=== PATIENT | male | born 1955 | race Caucasian/White ===

== ENCOUNTER 2025-06-05 09:29 | Outpatient (AMB) | payer MEDICARE, MEDICAID, SELFPAY ==
--- NOTE | 2025-06-05 09:29 | A.OFFPC_ITS ---
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 Required: No Accompanied by: Self / Same As Patient Allergies No Known Allergies Allergy (Verified 06/05/25 09:29) Medication List - Last Reconciled 06/05/25 by Jj Burks MD acetaminophen 1,000 mg PO Q8H apixaban (Eliquis) 5 mg PO BID losartan 25 mg PO DAILY metoprolol succinate ER 75 mg PO DAILY rosuvastatin 5 mg PO DAILY spironolactone 25 mg PO DAILY Tobacco use date assessed: 06/05/25 Fall risk assessment: 1 Fall in past year Dental Screening Dental Screen Date: 06/05/25 Did you have a dental visit in the last 12 months?: No Did you have a dental problem in the last 6 months where you did not have access to dental care?: No Was dental information given to patient?: No HPI HPI Comments History of Present Illness Details History of Present Illness The patient is a 69-year-old male presenting to establish care with a primary care physician. Right femur fracture: The patient sustained a right femur fracture last month after an episode of dizziness and blacking out, which he attributes to possible dehydration after his bender machine operator discontinued Lasix. He underwent intramedullary nailing of the femur and was subsequently in a rehab facility for eight days. He now uses a walker, which he did not require prior to the injury, and performs self-directed physical therapy exercises that he was taught in the hospital. He has a follow- up appointment with his orthopedic surgeon in June. Chronic low back pain: The patient has a history of chronic low back pain originating from a work injury in 2005 where he felt a pop after lifting something and twisting incorrectly. He was diagnosed with a herniated disc in the lower lumbar spine and underwent surgery for it in 2005. He has not followed up with a surgeon for his back since 2005 or 2006 and did not receive physical therapy for it. He reports the pain does not radiate down his legs. Congestive Heart Failure: The patient was diagnosed with congestive heart failure in 2019 after presenting with shortness of breath on exertion and inability to function. He is under the care of a bender machine operator whom he saw last week. He denies a history of atrial fibrillation or blood clots. An EKG performed at his last cardiology visit was reportedly normal. His last echocardiogram and lower leg sonogram were about one to two years ago and were reportedly normal. Nicotine dependence: The patient has a 50-year history of smoking and currently smokes two packs of cigarettes per week. He had a low-dose screening chest CT about two years ago, which was reportedly normal with no nodules found. Preventive Care: The patient has not had a primary care physician since 2009. His last colonoscopy was in 2009 and was reportedly normal. He is aware that he is overdue for a repeat screening. Surgical History: - Right femur intramedullary nailing las t month. - Lumbar spine surgery for a herniated d isc in 2005. - Left inguinal hernia repair a couple o f years ago. Medications: - Acetaminophen 1000 mg for pain in his leg and back. - Apixaban (Eliquis) for his heart. - Losartan for blood pressure. - Rosuvastatin for cholesterol. - Calcium. - Potassium. - Metoprolol. - Spironolactone. Social History: - Tobacco Use: Smokes two packs of cigar ettes per week and has been smoking for 50 years. - Employment: Retired lithographic printing machinist. - Functional Status: Uses a walker for a mbulation since his recent femur fracture. - Transportation: Relies on someone else for rides to appointments. Diagnostic Results: - Low-dose screening chest CT (2 years a go): Normal, no nodules found. - Colonoscopy (2009): Reportedly normal. - EKG (last week): Reportedly great. - Echocardiogram (1-2 years ago): Report edly everything was okay. - Lower leg sonogram (1-2 years ago): Re portedly everything was okay. Past Medical History - Congestive heart failure, diagnosed in 2019. - Hypertension. - Hyperlipidemia. - Herniated lumbar disc, status post-phyllis sukhwinder in 2005. - Right femur fracture, status post-surg claudia last month. - Left inguinal hernia, status post-repa ir a couple of years ago. Health Maintenance - The patient has not had a primary care physician since 2009. - The patient is overdue for a colon can cer screening, with his last colonoscopy performed in 2009. - A low-dose screening chest CT was perf ormed about two years ago and was normal. [facility] Medical History (Updated 06/05/25 @ 10:22 by Jj Burks MD) Xerosis cutis Nicotine dependence Congestive heart failure Chronic lower back pain Femur fracture, right Family History (Updated 06/05/25 @ 09:42 by Nemesio Galvez MA) Father No problems noted. Mother No problems noted. Social History Housing: House Patient Tobacco Use Status: Current everyday Tobacco user Cigarettes Per Day: 5 service: No Current occupational status: retired Cognitive needs: No Hearing needs: No Vision needs: Yes (reading glasses) Questionnaire PHQ-9 Over the last 2 weeks, how often have you been bothered by any of the following problems? 1. Little interest or pleasure in doing things: not at all 2. Feeling down, depressed, or hopeless: not at all 3. Trouble falling or staying asleep, or sleeping too much: not at all 4. Feeling tired or having little energy: not at all 5. Poor appetite or overeating: not at all 6. Feeling bad about yourself - or that you are a failure or have let yourself or your family down: not at all 7. Trouble concentrating on things, such as reading the newspaper or watching television: not at all 8. Moving or speaking so slowly that other people could have noticed. Or the opposite - being so fidgety or restless that you have been moving around a lot more than usual: not at all 9. Thoughts that you would be better off or of hurting yourself in some way: not at all Total score: 0 Depression Screening Interpretation: Negative Depression Screening Done: Yes Source: Developed by Drs. Tonio Murphy, Liya Borges, Yazan Portillo and colleagues, with an educational esteban from [employer]. Thrive Questionnaire Date Thrive assessed: 06/05/25 I am a: Patient What is your living situation today?: I have a steady place to live Within the past 12 months, did the food you bought not last and you didn't have the money to get more?: Never true Within the past 12 months, did you worry whether your food would run out before you got money to buy more?: Never true Do you have trouble paying for medicines?: No Do you have trouble getting transportation to medical appointments?: No Do you have trouble paying your heating and electricity bill?: No Do you have trouble taking care of your child, family member or friend?: No Do you have trouble with day-to-day activities such as bathing, preparing meals, shopping, managing finances, etc.?: Yes Are you currently unemployed and looking for a job?: No Are you interested in more education?: No Please select the resources that you would like help with: None THRIVE Score: 0 AUDIT C Alcohol Use Questionnaire (AUDIT-C) 1. How often do you have a drink containing alcohol?: Monthly or less 2. How many drinks containing alcohol do you have on a typical day when you are drinking?: 1 or 2 Total Score: 1 DANIELLE-7 AMB Questionnaire DANIELLE-7 Date DANIELLE - 7 assessed: 06/05/25 Feeling nervous, anxious, or on edge: 0 = Not at all Not being able to stop or control worryin = Not at all Worrying too much about different things: 0 = Not at all Trouble relaxin = Not at all Being so restless that it is hard to sit still: 0 = Not at all Becoming easily annoyed or irritable: 0 = Not at all Feeling afraid as if something awful might happen: 0 = Not at all Total DANIELLE-7 score (0-4 normal; 5-9 mild; 10-14 moderate; 15-21 severe): 0 Source: Developed by Drs. Tonio Murphy, Liya Borges, Yazan Portillo and colleagues, with an educational esteban from [employer]. Review of Systems Narrative Review of Systems - General: Reports sleeping only about four hours per night for the past few weeks since being discharged from the hospital. - Cardiovascular: History of shortness of breath with exertion. - Neurological: Reports a recent episode of dizziness and blacking out. - Musculoskeletal: Reports pain in his right leg and lower back. Denies radiating pain from his back. - /GI: Reports normal urination and bowel movements. 10-point ROS reviewed and negative except as noted in HPI Physical exam (Primary Care) Vital Signs: Last Vital Signs Temp 97.6 F 06/05/25 09:37 Pulse 69 11/14/25 09:37 Resp 16 06/05/25 09:37 BP 133/62 06/05/25 09:37 Pulse Ox 98 06/05/25 09:37 Oxygen Delivery Method Room Air 06/05/25 09:37 BMI result Body Mass Index 22.1 Tobacco/Smoking Status: Tobacco use Status Tobacco use date assessed 06/05/25 06/05/25 09:31 Patient Tobacco Use Status Current everyday Tobacco 06/05/25 09:46 PHQ-9: PHQ-9 Score PHQ-9: Total score 0 06/05/25 09:42 Depression Screening Interpretation: Negative Thrive Assessment: Date of Thrive Assessment Date Thrive assessed 06/05/25 06/05/25 09:31 Narrative Physical Exam General: Well-appearing, in no acute distress. Vital signs: Within normal limits. HEENT: Normocephalic, atraumatic. PERRLA, EOMI. Conjunctiva clear, sclera anicteric. Oropharynx clear, mucous membranes moist. TMs intact bilaterally. Neck: Supple, no lymphadenopathy, no thyromegaly, no JVD or carotid bruits. Cardiovascular: RRR, normal S1/S2, no murmurs, rubs, or gallops. Peripheral pulses 2+ and symmetric. Right leg with some swelling due to recent surgery. No edema in left leg. Respiratory: Lungs clear to auscultation bilaterally, no wheezes, rales, or rhonchi. Normal effort. Abdomen: Soft, non-tender, non-distended. Normoactive bowel sounds. No hepatosplenomegaly, no masses. MSK: Full range of motion, no joint swelling or deformity. Normal gait. Uses a walker due to recent right leg surgery. Skin: Warm, dry, intact. No rashes, lesions, or pallor. Notable dry skin on legs. Neuro: Alert and oriented x3. Cranial nerves II-XII intact. Strength 5/5 throughout. Sensation intact. Reflexes 2+ symmetric. Normal coordination and gait. Psych: Appropriate mood and affect. Normal judgment and insight. Coding Level of Care Code New Pt Level 4 (68898) Diagnoses Femur fracture, right S72.91XA Chronic lower back pain M54.50; G89.29 Congestive heart failure I50.9 Nicotine dependence F17.200 Xerosis cutis L85.3 Assessment & Plan Assessment & Plan (1) Femur fracture, right: Code(s): S72.91XA - Unspecified fracture of right femur, initial encounter for closed fracture Category: Medical (2) Chronic lower back pain: Code(s): M54.50 - Low back pain, unspecified; G89.29 - Other chronic pain Category: Medical (3) Congestive heart failure: Code(s): I50.9 - Heart failure, unspecified Category: Medical (4) Nicotine dependence: Code(s): F17.200 - Nicotine dependence, unspecified, uncomplicated Category: Medical (5) Xerosis cutis: Code(s): L85.3 - Xerosis cutis Category: Medical Plan Consent The alternatives for colon cancer screening, including colonoscopy and Cologuard, were discussed with the patient. The patient acknowledged the risk of false positives and false negatives with the Cologuard test. The patient verbalized understanding and provided consent to proceed with a referral for a screening colonoscopy. Patient was informed and verbally consented to the use of an ambient scribe for clinic note documentation during this visit. Plan 1. Establishing Care - Comprehensive lab work will be ordered, including a complete blood count, comprehensive metabolic panel, hemoglobin A1c, hepatitis B and C, HIV, lipid panel, magnesium, thyroid panel, urinalysis, vitamin B12, folate, and vitamin D. - Request medical records from the patient's bender machine operator to clarify the rationale for his current medications, particularly apixaban. - Follow-up appointment scheduled in two weeks to review lab results and discuss further management. 2. Colon Cancer Screening - An open access screening colonoscopy referral will be placed as the patient is overdue for screening and prefers this method over Cologuard. 3. Chronic Pain - Continue acetaminophen as needed for leg and back pain. 4. Xerosis Cutis - A prescription for lac-hydrin lotion will be sent to address the significant dry skin on his legs. Discussion Notes I met with the patient today to establish care, as he has not had a primary care provider since 2009. We reviewed his extensive medical history, including congestive heart failure, a recent right femur fracture, chronic back pain, and past surgeries. I emphasized the importance of obtaining his outside medical records, particularly from his bender machine operator, to better understand his treatment plan, including the rationale for apixaban therapy. We discussed options for colorectal cancer screening, and after reviewing the potential for false results with Rito, he elected to proceed with a colonoscopy, for which I will place a referral. I have ordered a comprehensive set of baseline labs to be drawn today. We will follow up in two weeks to review these results and continue to develop a comprehensive care plan. Patient Instructions - Please go to the lab here in the building to have your blood drawn for the tests we discussed. - I am sending a prescription for a lotion to the pharmacy for the dry skin on your legs. Please apply it as needed. - My office will send a referral for a colonoscopy. The specialist's office will call you to schedule the procedure. - Continue taking your current medications as prescribed by your other doctors. - Please schedule a follow-up appointment to see me again in about two weeks on any day that is convenient for you, except for a Sunday or a Sunday. Medical Decision Making The patient is a 69-year-old male with a complex medical history establishing care after a 13-year lapse in primary care. His primary issues include congestive heart failure managed by a bender machine operator, chronic pain from a remote lumbar surgery, and a recent femur fracture post-fall. The rationale for apixaban is unclear, given the patient's denial of atrial fibrillation or blood clots; obtaining cardiology records is a priority to confirm the indication. Given his age and the time since his last screening, a colonoscopy is indicated. After discussing the alternatives, the patient elected to proceed with colonoscopy, and a referral will be placed. Comprehensive baseline labs were ordered to assess renal and hepatic function, electrolytes, glycemic control, and screen for hematologic or nutritional deficiencies, which is essential for managing his chronic conditions and polypharmacy. A follow-up is scheduled in two weeks to review these results and begin consolidating a long-term health maintenance plan. Total Time Statement 30 min Total time spent caring for the patient today includes pre-visit chart review, documentation, review of laboratory and diagnostic imaging results, medication reconciliation, medically necessary evaluation, counseling on diagnoses, care coordination, ordering appropriate tests and medications, review of tests performed by other providers, reporting test results to the patient, and communication with other healthcare providers. Orders: Orders Complete Blood Count Auto Diff 06/05/25 Z13.9 - Encounter for screening, unspecified HIV Ab/Ag 06/05/25 Z13.9 - Encounter for screening, unspecified Magnesium 06/05/25 Z13.9 - Encounter for screening, unspecified Hepatitis B Surface Antigen 06/05/25 Z13.9 - Encounter for screening, unspecified Syphilis Screen 06/05/25 Z13.9 - Encounter for screening, unspecified Comprehensive Met. Panel 06/05/25 Z13.9 - Encounter for screening, unspecified Hepatitis C Antibody 06/05/25 Z13.9 - Encounter for screening, unspecified TSH reflex Free T4 06/05/25 Z13. - Encounter for screening, unspecified UA CC w/rflx Micro + Cult 06/05/25 Z13.9 - Encounter for screening, unspecified Lipid Panel 06/05/25 Z13.9 - Encounter for screening, unspecified Vitamin B12 and Folate 06/05/25 Z13.9 - Encounter for screening, unspecified Hemoglobin A1c 06/05/25 Z13.9 - Encounter for screening, unspecified Vitamin D 1,25 dihydroxy 06/05/25 Z13.9 - Encounter for screening, unspecified Hepatitis B Surface Antibody 06/05/25 Z13.9 - Encounter for screening, unspecified Referrals Open Access Screening Colonoscopy Referral Z12.11 - Encounter for screening for malignant neoplasm of colon, Z12.12 - Encounter for screening for malignant neoplasm of rectum Medications: New ammonium lactate 5% (Lac-Hydrin Five) 1 appl topical BID 226 grams 0RF
[2025-06-05 09:37] VITALS: BP 133/62; PULSE 69; RESP 16; TEMP 36.4; O2SAT 98; BMI 22.1
--- OUTSIDE RECORDS SUMMARY | 2025-06-05 10:29 | XMS_ITS | Clinical Summary ---
Author Organization [facility] [employer] [facility] Address [address] [facility] [place] [address] Phone Care Team Providers Care [place] Manager Name Role Phone Jj Burks MD Primary Care Provider [phone] Allergies No known active allergies Medications apixaban (Eliquis) 5 mg tabletIndicatio ns:afib Take 1 tablet (5 mg total) by mouth 2 (two) times a day. 60 each 5 Active metoprolol succinate (TOPROL-XL) 25 mg 24 hr tablet Take 3 tablets (75 mg total) by mouth 1 (one) time each day. Do not crush or chew. 90 each 5 Active rosuvastatin (CRESTOR) 5 mg tablet Take 1 tablet (5 mg total) by mouth 1 (one) time each day. 90 tablet 5 Active lidocaine 4 % patch Apply 1 patch topically 1 (one) time each day. 30 each 5 06/05/20 25 Active nicotine (NICODERM CQ) 7 mg/[address] 1 patch on the skin 1 (one) time each day. 30 each 5 Active polyethylene glycol (MIRALAX) 17 gram packet Take 17 g by mouth 1 (one) time each day. 510 g 5 06/05/20 25 Active senna (SENOKOT) 8.6 mg tablet Take 2 tablets (17.2 mg total) by mouth at bedtime. 60 each 11 5 05/05/20 26 Active acetaminophen (TYLENOL) 500 mg tablet Take 2 tablets (1,000 mg total) by mouth every 8 (eight) hours. 30 tablet 06/04/20 25 docusate sodium (COLACE) 100 mg capsule Take 1 capsule (100 mg total) by mouth 2 (two) times a day. 60 each 5 06/04/20 25 oxyCODONE (ROXICODONE) 5 mg immediate release tablet Take 1 tablet (5 mg total) by mouth every 4 (four) hours if needed for severe pain for up to 7 days. Max Daily Amount: 30 mg 15 tablet 05/21/20 Additional Information Patient not taking.Reported on 05/21/2025 tamsulosin (FLOMAX) 0.4 mg 24 hr capsule Take 1 capsule (0.4 mg total) by mouth at bedtime. Capsules should be taken 30 minutes following the same meal each day. 30 each 5 06/04/20 Active Problems Problem Noted Date Diagnosed Date Coronary artery disease invo lving [place] coronary artery of [place] heart without angina pectoris 05/02/2025 Assessment & Plan (05/21/2025 3:45 PM EDT): History of nonobstructive CAD. He continues on Eliquis beta-josé miguel and statin. He has no chest discomfort or shortness of breath. Patient advised to seek emergency medical attention by calling 911 if they were to develop severe dyspnea, chest pain that did not resolve with rest or nitroglycerin, or if they were to faint. Acute hyponatremia 05/02/2025 Syncope and collapse 05/02/2025 Polysubstance abuse ([facility] V24, [facility] V28) 1 Femur fracture, right ([facility] V24, [facility] V28) 04/28/2025 Closed nondisplaced intertro chanteric fracture of right femur, initial encounter ([facility] V24, [facility] V28) 04/23/2025 Dizziness 01/20/2024 Claudication ([facility] V24) 02/04/2023 Atrial fibrillation ([facility] V24, [facility] V28) 0 01/25/2022 Assessment & Plan (05/21/2025 3:45 PM EDT): Patient has history of paroxysmal atrial fibrillation. ECG today showing sinus rhythm with PACs. He continues on metoprolol for rate control and Eliquis 5 mg twice daily. He is tolerating this well. Orders: ECG 12 lead HFrEF (heart failure with re duced ejection fraction) (CMS/HCC V24, CMS/HCC V28) 01/25/2022 Assessment & Plan (05/21/2025 3:45 PM EDT): Patient has history of previously reduced EF which is now in recovery. Most recent echocardiogram showing EF 55-60% while hospitalized. He is euvolemic on exam. He continues on beta-josé miguel. He has very mild swelling to his right lower leg status post orthopedic surgery. Advised that he continue to monitor the swelling and elevate the leg at rest. He will notify the office if the swelling does not resolve with recovery or if it worsens as well as if swelling occurs in the left leg. He will continue to monitor his weight. I've asked the patient to call if they develop worsening symptoms of heart failure such as increased shortness of breath, new or worsening cough, increased swelling in the legs or ankles, or weight gain of more than 2 pounds in one day or 4 pounds in one week. Hyperlipidemia 01/25/2022 Assessment & Plan (05/21/2025 3:45 PM EDT): Continue on statin. Hypertension 01/25/2022 Assessment & Plan (05/21/2025 3:45 PM EDT): BP is well controlled, continue on beta josé miguel. I have reviewed with the patient the importance of a heart healthy lifestyle which includes eating a low-fat low-salt diet, getting regular exercise, maintaining a healthy weight, not smoking, and following up with routine medical care. Encounters Date Type Department Care Team Description 05/21/2025 2:40 PM EDT Office Visit [facility] [address] [facility] [address] [place] [address] Whitney Nava NP Paroxysmal atrial fibrillation (CMS/HCC V24, CMS/HCC V28) (Primary Dx); Syncope, unspecified syncope type; HFrEF (heart failure with reduced ejection fraction) ([facility] V24, [facility] V28); Coronary artery disease involving [place] coronary artery of [place] heart without angina pectoris; Hyperlipidemia, unspecified hyperlipidemia type; Primary hypertension 05/11/2025 8:08 AM EDT - 05/11/2025 11:59 PM EDT Hospital Encounter [facility] [address] [place] [address] Pain Discharge Disposition: Home or Self Care 05/04/2025 Plan of Care Documentation [facility] [address] [place] [phone] 04/28/2025 12:29 PM EDT - 05/06/2025 11:25 AM EDT Hospital Encounter [facility] [address] [place] [phone] Bernarda Huynh DO Discharge Disposition: Home-Health Care Sv 04/26/2025 8:34 AM EDT Anesthesia Event [address] [phone] Temo Huizar MD Dasilva, John E, MD 04/26/2025 8:00 AM EDT - 04/26/2025 10:00 AM EDT Surgery [address] [phone] Gray Murillo MD GAMMA NAIL RIGHT HIP 04/23/2025 2:11 PM EDT - 04/28/2025 12:09 PM EDT Hospital Encounter [facility] [address] [place] [phone] Mariza Law MD Goebel, Mathew, MD Zaidi, MD Sridhar Serna Omar D, MD Kokosadze, Estate, MD Kela, Kashyap Devendrabhai, MD Closed nondisplaced intertrochanteric fracture of right femur, initial encounter ([facility] V24, [facility] V28) (Primary Dx); Hyponatremia; Syncope, unspecified syncope type; Paroxysmal atrial fibrillation ([facility] V24, [facility] V28); HFrEF (heart failure with reduced ejection fraction) ([facility] V24, [facility] V28) Discharge Disposition: Rehab Facility from Last 3 Months Surgical History Surgery Date Site/Laterality Comments HERNIA REPAIR Left PROCEDURE: LAPAROSCOPY, INGUINAL HERNIA REPAIR Medical History Medical History Date Comments Hypertension CHF (congestive heart failure) ([facility] V24, [facility] V28) Social History Tobacco Use Types Packs/Day Years Used Date Smoking Tobacco: Every Day Cigarettes 0.3 0.9 Started: 2024 Smokeless Tobacco: Never Tobacco Cessation:Ready to Q uit: Not Asked; Counseling Given: Not Answered Alcohol Use Standard Drinks/Week Comments Yes 6 (1 standard drink = 0.6 oz pur e alcohol) Health Literacy Answer Date Recorded How often do you need to hav e someone help you when you read instructions, pamphlets, or other written material from your doctor or pharmacy? Never 05/05/2025 Caregiver: How often do you need to have someone help you when you read instructions, pamphlets, or other written material from your doctor or pharmacy? Not on file 05/05/2025 Transportation Answer Date Recorded Has the lack of transportati on kept you from meetings, work, or from getting things needed for daily living? Yes Has the lack of transportati on kept you from medical appointments or from getting medications? Yes 04/28/2025 Social Isolation Answer Date Recorded How often do you feel lonely or isolated from th ose around you? Never 05/05/2025 Food Risk Answer Date Recorded Within the past 12 months we worried whether our food would run out before we got money to buy more. Not asked 04/25/2025 Within the past 12 months th e food we bought just didn't last and we didn't have money to get more. Not asked 04/25/2025 Interpersonal Safety Answer Date Record ed Physical Abuse Unrecognized value 04/28/2025 Verbal Abuse Unrecognized value 04/28/2025 Sex and Gender Information Value Date Recorded Sex Assigned at Not on file Legal Sex Male 7:21 AM EST Gender Identity Not on file Sexual Orientation Not on file Obstetrics History Last Filed Vital Signs Vital Sign Reading Time Taken Comments Blood Pressure 130/68 05/21/2025 2:39 PM EDT Pulse 77 05/21/2025 2:39 PM EDT Temperature 37 C (98.6 F) 05/06/2025 9:00 AM EDT Respiratory Rate 16 05/06/2025 9:00 AM EDT Oxygen Saturation 98% 05/21/2025 2:39 PM EDT Inhaled Oxygen Concentration - - Weight 65.8 kg (145 lb) 05/21/2025 2:39 PM EDT Height 177.8 cm (5' 10 ) 05/21/2025 2:39 PM EDT Body Mass Index 20.81 05/21/2025 2:39 PM EDT Plan of Treatment Health Maintenance Due Date Last Done Comments Colorectal Cancer Screening: Colonoscopy 1955 DTaP,Tdap,and Td Vaccines (1 - Tdap) 1973 Hepatitis A Vaccines (1 of 2 - Risk 2-dose series) 1973 Pneumococcal Vaccine: 50+ Years (1 of 2 - PCV) 1973 RSV Immunization Adult Patients (1 - Risk 50-74 years 1-dose series) 2004 Abdominal Aortic Aneurysm (AAA) Screen 06/25/2022 Hepatitis C Screening 06/25/2022 Medicare Annual Wellness Visit 06/25/2022 COVID-19 Vaccine ( season) 2025 04/24/2024, 06/16/2023, 05/04/2022, Additional history exists Influenza Vaccine (#1) 2025 , 06/16/2023, 05/04/2022, Additional history exists Hypertension/CHF/CAD Annual BMP Blood Test 05/02/2026 05/02/2025, 05/01/2025, 04/30/2025, Additional history exists Social Influencers of Health Screening 05/05/2026 05/05/2025 Falls Risk Assessment 05/06/2026 05/06/2025 Cholesterol Screening (Lipid Panel) 04/14/2030 04/14/2025 Zoster Vaccines Completed 09/24/2021, 05/30/2021 Depression Screening Completed 05/05/2025 HIB Vaccines Aged Out No longer eligi ble based on patient's age to complete this topic HPV Vaccines Aged Out No longer eligi ble based on patient's age to complete this topic Hepatitis B Vaccines Aged Out No long er eligible based on patient's age to complete this topic IPV Vaccines Aged Out No longer eligi ble based on patient's age to complete this topic MMR Vaccines Aged Out No longer eligi ble based on patient's age to complete this topic Meningococcal ACWY Vaccine Aged Out N o longer eligible based on patient's age to complete this topic Meningococcal B Vaccine Aged Out No l onger eligible based on patient's age to complete this topic RSV Immunization Patients Under 20 months Aged Out No longer eligible based on patient's age to complete this topic Varicella Vaccines Aged Out No longer eligible based on patient's age to complete this topic Goals Goal Patient Goal Type Associated Problems Recent Progress Patient-Stated? Author Autogenera carter Goal Care Plan Autogenerated Problem No Meena Martinez Medical Devices Implanted Type Area Learning Facilitator Device Identifier Shelf Expiration Date Model / Serial / Lot Screw [id number] Nail Rt [id number] 125 Degree - Sna - [id number] Implanted:Qty: 1 on 04/26/2025 by Gray Murillo MD at [facility] Internal and External Fixation Right: Hip [employer] [id number] 01/19/2029 [id number] [id number] / NA / [id number] Screw Lag Ti Manisha 3 10.5x95mm Gamma 3 Nail System - Sna - [id number] Implanted:Qty: 1 on 04/26/2025 by Gray Murillo MD at [facility] Internal and External Fixation Right: Hip [employer] [id number] 02/19/2027 [id number] S / NA / [id number] Screw Lcking T2 Fthrd 5x52.5mm Ster - Sna - [id number] Implanted:Qty: 1 on 04/26/2025 by Gray Murillo MD at [facility] Internal and External Fixation Right: Hip [employer] [id number] 07/22/2027 [id number] S / NA / [id number] Procedures Procedure Name Priority Date/Time Associated Diagnosis Comments ECG 12-LEAD Routine 05/21/2025 3:45 PM EDT Paroxysmal atrial fibrillation (CMS/HCC V24, CMS/HCC V28) XR FEMUR 2+ VIEWS RIGHT Routine 05/11/2025 10:40 AM EDT Pain XR ABDOMEN 1 VIEW Routine 05/02/2025 8:5 0 AM EDT CBC WITH AUTO DIFFERENTIAL Routine 05/02/2025 5:01 AM EDT CBC AND DIFFERENTIAL Routine 05/02/2025 5:01 AM EDT COMPREHENSIVE METABOLIC PANEL Routine 05/02/2025 5:01 AM EDT XR ABDOMEN 1 VIEW STAT 05/01/2025 8:2 5 AM EDT CBC WITH AUTO DIFFERENTIAL Routine 05/01/2025 5:07 AM EDT CBC AND DIFFERENTIAL Routine 05/01/2025 5:07 AM EDT COMPREHENSIVE METABOLIC PANEL Routine 05/01/2025 5:07 AM EDT XR ABDOMEN 1 VIEW Routine 04/30/2025 12:24 PM EDT LAVENDER - EDTA Routine 04/30/2025 5:21 AM EDT EXTRA TUBES Routine 04/30/2025 5:21 AM EDT BASIC METABOLIC PANEL Routine 04/30/2025 5:21 AM EDT CBC WITH AUTO DIFFERENTIAL Routine 04/29/2025 5:06 AM EDT COMPREHENSIVE METABOLIC PANEL Routine 04/29/2025 5:06 AM EDT CBC AND DIFFERENTIAL Routine 04/29/2025 5:06 AM EDT MAGNESIUM Routine 04/28/2025 6:24 AM EDT BASIC METABOLIC PANEL Routine 04/28/2025 6:24 AM EDT COMPLETE BLOOD COUNT Routine 04/28/2025 6:24 AM EDT PHOSPHORUS Routine 04/28/2025 6:24 AM EDT XR FEMUR 2+ VIEWS RIGHT Routine 04/27/2025 8:55 AM EDT MANUAL DIFFERENTIAL - SYSMEX WAM Routine 04/27/2025 6:13 AM EDT CBC WITH AUTO DIFFERENTIAL Routine 04/27/2025 6:13 AM EDT CBC AND DIFFERENTIAL Routine 04/27/2025 6:13 AM EDT BASIC METABOLIC PANEL Routine 04/27/2025 6:13 AM EDT OXYGEN THERAPY, ADULT Routine 04/26/2025 10:27 AM EDT XR HIP 2-3 VIEWS RIGHT Routine 9:52 AM EDT TH AN LMA(NO CHARGE) Routine 04/26/2025 9:02 AM EDT FIXATION HIP IM NAIL 04/26/2025 8:34 AM EDT Case Notes C-ARM, DANNY TABLE TRIIODOTHYRONINE FREE Add-On 04/26/2025 6:32 AM EDT THYROXINE FREE Add-On 04/26/2025 6:32 AM EDT RBC MORPHOLOGY REVIEW Routine 04/26/2025 6:32 AM EDT MAGNESIUM Routine 04/26/2025 6:32 AM EDT CBC WITH AUTO DIFFERENTIAL Routine 04/26/2025 6:32 AM EDT BASIC METABOLIC PANEL Routine 04/26/2025 6:32 AM EDT CBC AND DIFFERENTIAL Routine 04/26/2025 6:32 AM EDT ECG 12-LEAD STAT 04/26/2025 4:35 AM EDT THYROID STIMULATING HORMONE Add-On 04/25/2025 6:12 AM EDT RBC MORPHOLOGY REVIEW Routine 04/25/2025 6:12 AM EDT CBC WITH AUTO DIFFERENTIAL Routine 04/25/2025 6:12 AM EDT MAGNESIUM Routine 04/25/2025 6:12 AM EDT BASIC METABOLIC PANEL Routine 04/25/2025 6:12 AM EDT CBC AND DIFFERENTIAL Routine 04/25/2025 6:12 AM EDT POCT GLUCOSE BLOOD Routine 04/24/2025 11:25 AM EDT TRANSTHORACIC ECHOCARDIOGRAM (TTE) COMPLETE W/ CONTRAST Routine 04/24/2025 9:40 AM EDT Syncope, unspecified syncope type HFrEF (heart failure with reduced ejection fraction) (CMS/HCC V24, CMS/HCC V28) RBC MORPHOLOGY REVIEW Routine 04/24/2025 6:02 AM EDT CBC WITH AUTO DIFFERENTIAL Routine 04/24/2025 6:02 AM EDT MAGNESIUM Routine 04/24/2025 6:02 AM EDT BASIC METABOLIC PANEL Routine 04/24/2025 6:02 AM EDT CBC AND DIFFERENTIAL Routine 04/24/2025 6:02 AM EDT DRUG ABUSE SCREEN 8A PANEL, URINE Routine 04/24/2025 12:34 AM EDT SODIUM, URINE, RANDOM Routine 04/24/2025 12:34 AM EDT OSMOLALITY, URINE Routine 04/24/2025 12:34 AM EDT ECG ANNOTATED 04/24/2025 BASIC METABOLIC PANEL Routine 04/23/2025 11:57 PM EDT TYPE AND SCREEN STAT 04/23/2025 10:[address] PELVIS WO CONTRAST STAT 04/23/2025 7:50 PM EDT DAILEY URINE CULTURE TUBE STAT 04/23/2025 7:36 PM EDT URINALYSIS WITH REFLEX MICROSCOPIC AND CULTURE STAT 04/23/2025 7:36 PM EDT URINALYSIS WITH REFLEX MICROSCOPIC AND CULTURE STAT 04/23/2025 7:36 PM EDT XR KNEE 1-2 VIEWS RIGHT STAT 04/23/2025 7:06 PM EDT XR CHEST 1 VIEW STAT 04/23/2025 7:06 PM EDT XR FEMUR 2+ VIEWS RIGHT STAT 04/23/2025 7:06 PM EDT XR PELVIS 1-2 VIEWS STAT 04/23/2025 7 [address] CERVICAL SPINE WO CONTRAST STAT 04/23/2025 4:[address] HEAD WO CONTRAST STAT 04/23/2025 4 :24 PM EDT ETHANOL Add-On 04/23/2025 4:00 PM EDT OSMOLALITY Add-On 04/23/2025 4:00 PM EDT COMPREHENSIVE METABOLIC PANEL STAT 04/23/2025 4:00 PM EDT TROPONIN I HIGH SENSITIVITY Timed 04/23/2025 4:00 PM EDT CREATINE KINASE STAT 04/23/2025 2:45 PM EDT CBC WITH AUTO DIFFERENTIAL STAT 04/23/2025 2:45 PM EDT PROTHROMBIN TIME WITH INR STAT 04/23/2025 2:45 PM EDT ACTIVATED PARTIAL THROMBOPLASTIN TIME STAT 04/23/2025 2:45 PM EDT TROPONIN I HIGH SENSITIVITY Timed 04/23/2025 2:45 PM EDT MAGNESIUM STAT 04/23/2025 2:45 PM EDT CBC AND DIFFERENTIAL STAT 04/23/2025 2:45 PM EDT ECG 12-LEAD STAT 04/23/2025 2:44 PM EDT LIPID PANEL WITH DIRECT LDL Routine 04/14/2025 11:52 AM EDT SPECIMEN STATUS REPORT Routine 11:52 AM EDT BASIC METABOLIC PANEL Routine 04/14/2025 11:52 AM EDT from Last 3 Months Results * ECG 12 lead (05/21/2025 3:45 PM EDT) Only the most recent of3 resultswithin the time period is included. Ventricular Rate ECG 77 BPM GEMUSE Atrial Rate 77 BPM GEMUSE P-R Interval 198 ms GEMUSE QRS Duration 82 ms GEMUSE Q-T Interval 360 ms GEMUSE QTc 407 ms GEMUSE P Wave [place] 86 degrees GEMUSE R [place] 78 degrees GEMUSE T [place] 81 degrees GEMUSE ECG Interpretation Sinus rhythm with Premature atrial complexes Otherwise normal ECG When compared with ECG of 26-APR-2025 04:35, Sinus rhythm has replaced Atrial fibrillation Vent. rate has decreased BY 45 BPM T wave inversion no longer evident in Anterior leads Confirmed by MD MARITZA, SY ([id number]) on 06/01/2025 5:49:34 PM GEMUSE 05/21/2025 2:56 PM EDT 06/01/2025 5:49 PM EST us Whitney Nava NP ECG ORDERABLES Edited Result - Final Performing Organization Address [facility] de Phone Number GEMUSE * XR Femur 2+ Views Right (05/11/2025 10:40 AM EDT) Only the most recent of3 resultswithin the time period is included. Narrative RIS PACS/VR - 05/11/2025 10:40 AM EDT This order has been auto-finalized and does not contain a result. us Selam Urbina MD IMG XR PROCEDURES Final Result Performing Organization Address [facility] de Phone Number RIS PACS/VR * XR Abdomen 1 View (05/02/2025 8:50 AM EDT) Only the most recent of3 resultswithin the time period is included. Anatomical Region Laterality Modality Body Radiographic Brittani ging 05/04/2025 8:01 AM EDT Impressions 05/04/2025 8:03 AM EDT Diffuse colonic distention, mildly improved since 05/01/2025, likely representing resolving adynamic ileus. Code 10203 -------- FINAL REPORT -------- Dictated By: Gunner Goodson Dictated Date: 05/04/2025 08:01 ET Assigned Physician: Gunner Goodson Reviewed and Electronically Signed By: Gunner Goodson Signed Date: 05/04/2025 08:03 ET Workstation ID: [id number] Transcribed By: Self Edit Transcribed Date: 05/04/2025 08:01 ET Narrative 05/04/2025 8:03 AM EDT HISTORY: The patient is a 69-year-old male with provided diagnosis of adynamic ileus. FINDINGS: Supine radiographs of the abdomen again demonstrate internal fixation hardware in the right femur, as also seen on the prior study performed 05/01/2025. There are degenerative changes of the lumbar spine. Diffuse gaseous distention of the colon is present, particularly in the ascending and transverse colon, mildly improved. No definite small bowel distention is seen. No mass or radiopaque calculus is seen. Procedure Note Gunner Goodson MD - 05/04/2025 HISTORY: The patient is a 69-year-old male with provided diagnosis ofadynamic ileus. FINDINGS: Supine radiographs of the abdomen again demonstrate internalfixation hardware in the right femur, as also seen on the prior studyperformed 05/01/2025. There are degenerative changes of the lumbar spine.Diffuse gaseous distention of the colon is present, particularly in theascending and transverse colon, mildly improved. No definite small boweldistention is seen. No mass or radiopaque calculus is seen. IMPRESSION: Diffuse colonic distention, mildly improved since 05/01/2025, likelyrepresenting resolving adynamic ileus. Code 21780 -------- FINAL REPORT -------- Dictated By: Gunner Goodson Dictated Date: 05/04/2025 08:01 ET Assigned Physician: Gunner Goodson Reviewed and Electronically Signed By: Gunner Goodson Signed Date: 05/04/2025 08:03 ET Workstation ID: [id number] Transcribed By: Self Edit Transcribed Date: 05/04/2025 08:01 ET us Bernarda Huynh DO IMG XR PROCEDURES Final R esult * (ABNORMAL) CBC auto differential (05/02/2025 5:01 AM EDT) Only the most recent of8 resultswithin the time period is included. WBC 8.8 4.8 - 10.8 K/mcL LAB HEMETOLOGY METHOD 05/02/2025 6:33 AM EDT [facility] RBC 2.90(L) 4.50 - 5.50 M/mcL LAB HEMETOLOGY METHOD 05/02/2025 6:33 AM EDT [facility] Hemoglobin 9.3(L) 13.5 - 17.5 g/dL LAB HEMETOLOGY METHOD 05/02/2025 6:33 AM [facility] Hematocrit 28.3(L) 42.0 - 54.0 % LAB HEMETOLOGY METHOD 05/02/2025 6:33 AM [facility] MCV 99.0(H) 79.0 - 98.0 FL LAB HEMETOLOGY METHOD 05/02/2025 6:33 AM [facility] MCH 32.5(H) 27.0 - 32.0 pcg LAB HEMETOLOGY METHOD 05/02/2025 6:33 AM [facility] MCHC 32.9 32.0 - 37.0 g/dL LAB HEMETOLOGY METHOD 05/02/2025 6:33 AM [facility] RDW 12.7 11.0 - 15.0 % LAB HEMETOLOGY METHOD 05/02/2025 6:33 AM [facility] Platelets 432(H) 130 - 400 K/mcL LAB HEMETOLOGY METHOD 05/02/2025 6:33 AM [facility] MPV 9.3 7.0 - 11.0 FL LAB HEMETOLOGY METHOD 05/02/2025 6:33 AM [facility] NRBC 0.0 <1.0 % LAB HEMETOLOGY METHOD 05/02/2025 6:33 AM [facility] NRBC Absolute 0.00 <0.10 K/mcL LAB HEMETOLOGY METHOD 05/02/2025 6:33 AM [facility] Neutrophils Relative 66.7 % LAB HEMETOLOGY METHOD 05/02/2025 6:33 AM [facility] Comment:This is an appended report. These results have been appended to a previously preliminary verified report. Lymphocytes Relative 8.4 % LAB HEMETOLOGY METHOD 05/02/2025 6:33 AM [facility] Comment:This is an appended report. These results have been appended to a previously preliminary verified report. Monocytes Relative 19.2 % LAB HEMETOLOGY METHOD 05/02/2025 6:33 AM [facility] Comment:This is an appended report. These results have been appended to a previously preliminary verified report. Eosinophils Relative 4.0 % LAB HEMETOLOGY METHOD 05/02/2025 6:33 AM [facility] Comment:This is an appended report. These results have been appended to a previously preliminary verified report. Basophils Relative 0.6 % LAB HEMETOLOGY METHOD 05/02/2025 6:33 AM [facility] Comment:This is an appended report. These results have been appended to a previously preliminary verified report. Immature Granulocytes Relative 1.1 % LAB HEMETOLOGY METHOD 05/02/2025 6:33 AM [facility] Comment:This is an appended report. These results have been appended to a previously preliminary verified report. Neutrophils Absolute 5.90 1.50 - 7.00 K/mcL LAB HEMETOLOGY METHOD 05/02/2025 6:33 AM [facility] Comment:This is an appended report. These results have been appended to a previously preliminary verified report. Lymphocytes Absolute 0.74(L) 1.00 - 5.00 K/mcL LAB HEMETOLOGY METHOD 05/02/2025 6:33 AM [facility] Comment:This is an appended report. These results have been appended to a previously preliminary verified report. Monocytes Absolute 1.70(H) 0.20 - 1.00 K/mcL LAB HEMETOLOGY METHOD 05/02/2025 6:33 AM [facility] Comment:This is an appended report. These results have been appended to a previously preliminary verified report. Eosinophils Absolute 0.35 0.00 - 0.50 K/mcL LAB HEMETOLOGY METHOD 05/02/2025 6:33 AM [facility] Comment:This is an appended report. These results have been appended to a previously preliminary verified report. Basophils Absolute 0.05 0.00 - 0.20 K/mcL LAB HEMETOLOGY METHOD 05/02/2025 6:33 AM EDT [facility] Comment:This is an appended report. These results have been appended to a previously preliminary verified report. Immature Granulocytes Absolute 0.10(H) 0.00 - 0.03 K/mcL LAB [facility] METHOD 05/02/2025 6:33 AM EDT [facility] Comment:This is an appended report. These results have been appended to a previously preliminary verified report. Blood Venous blood specimen / Unknown Venipuncture / Unknown 05/02/2025 5:01 AM EDT 05/02/2025 5:43 AM EDT us Bernarda Huynh DO LAB BLOOD ORDERABLES Yono amin Result [facility] [address] [place] [address], [place] [phone] * (ABNORMAL) Comprehensive metabolic panel (05/02/2025 5:01 AM EDT) Only the most recent of4 resultswithin the time period is included. Sodium 130(L) 133 - 145 mmol/L LAB CHEMISTRY METHOD 05/02/2025 6:42 AM [facility] Potassium 4.3 3.5 - 5.5 mmol/L LAB CHEMISTRY METHOD 05/02/2025 6:42 AM [facility] Chloride 97 96 - 110 mmol/L LAB CHEMISTRY METHOD 05/02/2025 6:42 AM [facility] CO2 25 21 - 32 mmol/L LAB CHEMISTRY METHOD 05/02/2025 6:42 AM [facility] Anion Gap 8 3 - 11 LAB CHEMISTRY METHOD 05/02/2025 6:42 AM T [facility] Glucose 86 70 - 100 mg/dL LAB CHEMISTRY METHOD 05/02/2025 6:42 AM [facility] BUN 11 5 - 25 mg/dL LAB CHEMISTRY METHOD 05/02/2025 6:42 AM [facility] Creatinine 0.66(L) 0.70 - 1.30 mg/dL LAB CHEMISTRY METHOD 05/02/2025 6:42 AM [facility] eGFR 101 >=60 mL/min/1. 73m2 LAB CHEMISTRY METHOD 05/02/2025 6:42 AM [facility] Comment:Calculation based on the Chronic Kidney Disease Epidemiology Collaboration (CKD-EPI) equation refit without adjustment for race. BUN/Creatinine Ratio 16.7 LAB CHEMISTRY METHOD 05/02/2025 6:42 AM [facility] Calcium 8.3(L) 8.5 - 10.5 mg/dL LAB CHEMISTRY METHOD 05/02/2025 6:42 AM [facility] AST (SGOT) 20 10 - 42 unit/L LAB CHEMISTRY METHOD 05/02/2025 6:42 AM [facility] ALT (SGPT) 18 10 - 60 unit/L LAB CHEMISTRY METHOD 05/02/2025 6:42 AM [facility] Alkaline Phosphatase 74 42 - 121 unit/L LAB CHEMISTRY METHOD 05/02/2025 6:42 AM [facility] Total Protein 6.0 6.0 - 8.0 g/dL LAB CHEMISTRY METHOD 05/02/2025 6:42 AM [facility] Albumin 2.8(L) 3.2 - 5.0 g/dL LAB CHEMISTRY METHOD 05/02/2025 6:42 AM [facility] Total Bilirubin 0.5 0.0 - 1.4 mg/dL LAB CHEMISTRY METHOD 05/02/2025 6:42 AM [facility] Blood Venous blood specimen / Unknown Venipuncture / Unknown 05/02/2025 5:01 AM EDT 05/02/2025 5:43 AM EDT Bernarda Huynh LAB BLOOD ORDERABLES Yoon l Result Performing Organization Address [facility]/ZIP Co de Phone Number [facility] [address] [place] [address], [place] [phone] * Lavender tube (04/30/2025 5:21 AM EDT) [facility] Extra Tube Hold for add-ons. 04/30/2025 7:01 AM EDT [facility] Comment:Auto resulted. Blood Venous blood specimen / Unknown Venipuncture / Unknown 04/30/2025 5:21 AM EDT 04/30/2025 5:43 AM EDT Bernarda Huynh LAB BLOOD ORDERABLES Yoon l Result Performing Organization Address [facility] Co de Phone Number [facility] [address] [place] [address], [place] [phone] * (ABNORMAL) Basic metabolic panel (04/30/2025 5:21 AM EDT) Only the most recent of8 resultswithin the time period is included. [facility] Sodium 128(L) 133 - 145 mmol/L LAB CHEMISTRY METHOD 04/30/2025 6:08 AM EDT [facility] Potassium 3.8 3.5 - 5.5 mmol/L LAB CHEMISTRY METHOD 04/30/2025 6:08 AM [facility] Chloride 95(L) 96 - 110 mmol/L LAB CHEMISTRY METHOD 04/30/2025 6:08 AM [facility] CO2 26 21 - 32 mmol/L LAB CHEMISTRY METHOD 04/30/2025 6:08 AM EDT [facility] Anion Gap 7 3 - 11 LAB CHEMISTRY METHOD 04/30/2025 6:08 AM EDT [facility] Glucose 98 70 - 100 mg/dL LAB CHEMISTRY METHOD 04/30/2025 6:08 AM [facility] BUN 15 5 - 25 mg/dL LAB CHEMISTRY METHOD 04/30/2025 6:08 AM [facility] Creatinine 0.70 0.70 - 1.30 mg/dL LAB CHEMISTRY METHOD 04/30/2025 6:08 AM [facility] eGFR 99 >=60 mL/min/1. 73m2 LAB CHEMISTRY METHOD 04/30/2025 6:08 AM [facility] Comment:Calculation based on the Chronic Kidney Disease Epidemiology Collaboration (CKD-EPI) equation refit without adjustment for race. BUN/Creatinine Ratio 21.4 LAB CHEMISTRY METHOD 04/30/2025 6:08 AM [facility] Calcium 8.2(L) 8.5 - 10.5 mg/dL LAB CHEMISTRY METHOD 04/30/2025 6:08 AM [facility] Blood Venous blood specimen / Unknown Venipuncture / Unknown 04/30/2025 5:21 AM EDT 04/30/2025 5:42 AM EDT us Bernarda Huynh DO LAB BLOOD ORDERABLES Yoon l Result [facility] [address] [place] [address], * (ABNORMAL) Complete blood count (04/28/2025 6:24 AM EDT) WBC 10.8 4.8 - 10.8 K/mcL LAB HEMETOLOGY METHOD 04/28/2025 6:49 AM [facility] RBC 3.00(L) 4.50 - 5.50 M/mcL LAB HEMETOLOGY METHOD 04/28/2025 6:49 AM [facility] Hemoglobin 9.7(L) 13.5 - 17.5 g/dL LAB HEMETOLOGY METHOD 04/28/2025 6:49 AM [facility] Hematocrit 29.2(L) 42.0 - 54.0 % LAB HEMETOLOGY METHOD 04/28/2025 6:49 AM [facility] MCV 97.3 79.0 - 98.0 FL LAB HEMETOLOGY METHOD 04/28/2025 6:49 AM [facility] MCH 32.3(H) 27.0 - 32.0 pcg LAB HEMETOLOGY METHOD 04/28/2025 6:49 AM [facility] MCHC 33.2 32.0 - 37.0 g/dL LAB HEMETOLOGY METHOD 04/28/2025 6:49 AM [facility] RDW 13.1 11.0 - 15.0 % LAB HEMETOLOGY METHOD 04/28/2025 6:49 AM [facility] Platelets 295 130 - 400 K/mcL LAB HEMETOLOGY METHOD 04/28/2025 6:49 AM [facility] MPV 9.5 7.0 - 11.0 FL LAB HEMETOLOGY METHOD 04/28/2025 6:49 AM [facility] NRBC 0.0 <1.0 % LAB HEMETOLOGY METHOD 04/28/2025 6:49 AM [facility] NRBC Absolute 0.00 <0.10 K/mcL LAB HEMETOLOGY METHOD 04/28/2025 6:49 AM [facility] Blood Venous blood specimen / Unknown Venipuncture / Unknown 04/28/2025 6:24 AM EDT 04/28/2025 6:41 AM EDT Valentin Teixeira MD LAB BLOOD ORDERABLE S Final Result [facility] [address] [place] [address], [place] [phone] * Phosphorus (04/28/2025 6:24 AM EDT) Phosphorus 2.5 2.5 - 4.5 mg/dL LAB CHEMISTRY METHOD 04/28/2025 7:30 AM EDT [facility] Blood Venous blood specimen / Unknown Venipuncture / Unknown 04/28/2025 6:24 AM EDT 04/28/2025 6:41 AM EDT us Valentin Teixeira MD LAB BLOOD ORDERABLE S Final Result Performing Organization Address [facility] de Phone Number [facility] [address] [place] [address], [place] [phone] * Magnesium (04/28/2025 6:24 AM EDT) Only the most recent of5 resultswithin the time period is included. Magnesium 2.1 1.9 - 2.6 mg/dL LAB CHEMISTRY METHOD 04/28/2025 7:23 AM EDT [facility] Blood Venous blood specimen / Unknown Venipuncture / Unknown 04/28/2025 6:24 AM EDT 04/28/2025 6:41 AM EDT us Valentin Teixeira MD LAB BLOOD ORDERABLE S Final Result Performing Organization Address City/[facility]/ZIP Co de Phone Number [facility] [address] [place] [address], [place] [phone] * (ABNORMAL) Manual differential (04/27/2025 6:13 AM EDT) Neutrophils % 87.0 % LAB HEMETOLOGY METHOD 04/27/2025 7:13 AM EDT [facility] Lymphocytes % 4.0 % LAB HEMETOLOGY METHOD 04/27/2025 7:13 AM EDT [facility] Monocytes % 8.0 % LAB HEMETOLOGY METHOD 04/27/2025 7:13 AM T [facility] Eosinophils % 2.0 % LAB HEMETOLOGY METHOD 04/27/2025 7:13 AM EDT [facility] Basophils % 0.0 % LAB HEMETOLOGY METHOD 04/27/2025 7:13 AM EDT [facility] Neutrophils Absolute Manual 10.96(H) 1.50 - 7.00 K/mcL LAB HEMETOLOGY [facility]/27[facility]2025 [facility] Lymphocytes Absolute 0.50(L) 1.00 - 5.00 K/mcL LAB HEMETOLOGY METHOD 04/27/2025 7:13 AM EDT [facility] Monocytes Absolute Manual 1.01(H) 0.20 - 1.00 K/mcL LAB HEMETOLOGY METHOD 04/27/2025 7:13 AM EDT [facility] Eosinophils Absolute Manual 0.25 0.00 - 0.50 K/mcL LAB HEMETOLOGY METHOD 04/27/2025 7:13 AM [facility] Basophils Absolute Manual 0.00 0.00 - 0.20 K/mcL LAB HEMETOLOGY METHOD 04/27/2025 7:13 AM EDT [facility] Blood Venous blood specimen / Unknown Venipuncture / Unknown 04/27/2025 6:13 AM EDT 04/27/2025 6:24 AM EDT us Estate Mario CINTRON LAB BLOOD ORDERABLES Final R esult [facility] [address] [place] [address], * XR Hip 2-3 Views Right (04/26/2025 9:52 AM EDT) Anatomical Region Laterality Modality Lower Extremities, Hip Right Radio Flu oroscopy 04/28/2025 8:14 AM EDT Impressions 04/28/2025 8:16 AM EDT Satisfactory appearance following operative internal fixation of intertrochanteric fracture of the right femur. The dose-area product for this procedure was 4084.5 mGy*cm2. PQRI CPT II G9500 -------- FINAL REPORT -------- Dictated By: Gunner Goodson Dictated Date: 04/28/2025 08:14 ET Assigned Physician: Gunner Goodson Reviewed and Electronically Signed By: Gunner Goodson Signed Date: 04/28/2025 08:16 ET Workstation ID: [id number] Transcribed By: Self Edit Transcribed Date: 04/28/2025 08:14 ET Narrative 04/28/2025 8:16 AM EDT HISTORY: The patient is a 69-year-old male with an intertrochanteric fracture of the right femur. FINDINGS: 3 fluoroscopic spot radiographs of the right femur obtained in the operating room are submitted. The study documents placement of a compression screw and intramedullary fixation crsis transfixing the intertrochanteric fracture of the femur initially seen on 04/23/2025. The surgical hardware appears well-positioned and intact. There is near-anatomic alignment at the fracture site. A catheter, likely a urinary catheter, is noted. Procedure Note Gunner Goodson MD - 04/28/2025 HISTORY: The patient is a 69-year-old male with an intertrochantericfracture of the right femur. FINDINGS: 3 fluoroscopic spot radiographs of the right femur obtained inthe operating room are submitted. The study documents placement of acompression screw and intramedullary fixation criss transfixing theintertrochanteric fracture of the femur initially seen on 04/23/2025. Thesurgical hardware appears well-positioned and intact. There isnear-anatomic alignment at the fracture site. A catheter, likely a urinary catheter, is noted. IMPRESSION: Satisfactory appearance following operative internal fixation ofintertrochanteric fracture of the right femur. The dose-area product for this procedure was 4084.5 mGy*cm2. PQRI CPT II G9500 -------- FINAL REPORT -------- Dictated By: Gunner Goodson Dictated Date: 04/28/2025 08:14 ET Assigned Physician: Gunner Goodson Reviewed and Electronically Signed By: Gunner Goodson Signed Date: 04/28/2025 08:16 ET Workstation ID: [id number] Transcribed By: Self Edit Transcribed Date: 04/28/2025 08:14 ET us Gray Murillo MD IMG XR PROCEDURES Final R esult * TH AN LMA(NO CHARGE) (04/26/2025 9:02 AM EDT) Lanette Shukla CRNA - 04/26/2025 9:02 AM EDT Lanette aNzario CRNA 04/26/2025 9:03 AM General Information and Staff Patient location during procedure: OR Resident/MANAGER LOGISTIC: Lanette Nazario CRNA Performed: resident/MANAGER LOGISTIC/CAA Performed by: Lanette Nazario CRNA Authorized by: Temo Huizar MD Intubation Additional Comments LMA 4 placed but unable to create adequate seal; removed and LMA 5 inserted. Airway not difficult Reason: elective Final Airway Details LMA Size: 5 LMA Type: Unique LMA Seal Pressure:20 Final airway type: LMA Indications and Patient Condition Indications for airway management: anesthesia and airway protection Sedation level: Yes Preoxygenated: yesSoft Tissue Damage: No Dentition Unchanged: Yes Patient position: sniffing MILS maintained throughout Mask difficulty assessment: 0 - not attempted us Temo Huizar MD ANESTHESIA ORDERABLES Final Re sult * (ABNORMAL) RBC morphology review (04/26/2025 6:32 AM EDT) Only the most recent of3 resultswithin the time period is included. Rbc Morphology Consistent with indices Consistent with indices, Normal for Ira LAB HEMETOLOGY METHOD 04/26/2025 7:40 AM EDT [facility] ([facility] Platelet Morphology - WAM See Note(A) Normal LAB HEMETOLOGY METHOD 04/26/2025 7:40 AM EDT [facility] Comment:PLT: Normal Blood Venous blood specimen / Unknown Venipuncture / Unknown 04/26/2025 6:32 AM EDT 04/26/2025 6:46 AM EDT us Franco Martin MD LAB BLOOD ORDERABLES Final R esult Performing Organization Address City/[facility]/ZIP Co de Phone Number [facility] [address] [place] [address], [place] [phone] * Triiodothyronine free (04/26/2025 6:32 AM EDT) T3, Free 277 230 - 420 pcg/dL LAB CHEMISTRY METHOD 04/26/2025 11:50 AM EDT [facility] Blood Venous blood specimen / Unknown Venipuncture / Unknown 04/26/2025 6:32 AM EDT 04/26/2025 6:45 AM EDT us Franco Martin MD LAB BLOOD ORDERABLES Final R esult Performing Organization Address [facility] Co de Phone Number [facility] [address] [place] [address], [place] [phone] * Thyroxine free (04/26/2025 6:32 AM EDT) Free T4 1.36 0.70 - 1.80 ng/dL LAB CHEMISTRY METHOD 04/26/2025 11:45 AM EDT [facility] Blood Venous blood specimen / Unknown Venipuncture / Unknown 04/26/2025 6:32 AM EDT 04/26/2025 6:45 AM EDT us Franco Martin MD LAB BLOOD ORDERABLES Final R esult Performing Organization Address City/[facility]/ZIP Co de Phone Number [facility] [address] [place] [address], [place] [phone] * (ABNORMAL) Thyroid stimulating hormone (04/25/2025 6:12 AM EDT) [facility] TSH 7.83(H) 0.40 - 4.00 mcIU/mL LAB CHEMISTRY METHOD 04/25/2025 1:46 PM EDT [facility] Blood Venous blood specimen / Unknown Venipuncture / Unknown 04/25/2025 6:12 AM EDT 04/25/2025 6:42 AM EDT us Franco Martin MD LAB BLOOD ORDERABLES Final R esult [facility] [address] [place] [address], [place] [phone] * (ABNORMAL) POCT Glucose, blood (04/24/2025 11:25 AM EDT) [facility] Glucose POCT 112(H) 70 - 100 mg/dL 04/24/2025 11:25 AM EDT [facility] Blood Capillary blood specimen / Unknown 04/24/2025 11:25 AM EDT 04/24/2025 11:27 AM EDT us Franco Martin MD LAB POINT OF CARE TE ST DOCKED DEVICE UNSOLICITED RESULTS Final Result [facility] [address] [place] [address], [place] [phone] * (ABNORMAL) TRANSTHORACIC ECHOCARDIOGRAM (TTE) COMPLETE W/ CONTRAST (04/24/2025 9:40 AM EDT) [facility] Aortic Sinus Valsalva 3.7 cm CV PACS IVSD 1.1(A) 0.6 - 1.0 cm CV PACS LVIDD 4.4 4.2 - 5.8 cm CV PACS LVIDS 3.4 2.5 - 4.0 cm CV PACS LVOT Diameter 2.1 cm CV PACS LVPWD 1.1(A) 0.6 - 1.0 cm CV PACS MV E' Tissue Velocity Lateral 8 cm/s CV PACS MV E' Tissue Velocity Septal 9 cm/s CV PACS LVOT Area 3.5 cm2 CV PACS MV Deceleration Darke 2.9 m/s2 CV PACS E Wave Deceleration Time 175 119 - 242 ms CV PACS MV PHT 51 ms CV PACS MV Peak A Helder 0.56 m/s CV PACS MV Peak E Helder 0.51 m/s CV PACS MV Area PHT 4.3 cm2 CV PACS RV S' 11 cm/s CV PACS TAPSE 20 mm CV PACS TR Peak Velocity 1.57 m/s CV PACS TR Peak Gradient 10 mmHg CV PACS E/E' Ratio Septal 6 CV PACS E/E' Ratio Averaged 6 CV PACS Relative Wall Thickness ratio 0.50 CV PACS FS 23 % CV PACS LV Mass 2D 169 g CV PACS LVIDD Index 2.44 cm/m2 CV PACS LVIDS Index 1.89 cm/m2 CV PACS E/A Ratio 0.9 CV PACS E/E' Ratio Lateral 6 CV PACS LV Mass Index 2D 94 g/m2 CV PACS BSA 1.78 m2 CV PACS Right Ventricular Peak Systolic Pressure 13 mmHg CV PACS Est. RA Pressure 3 mmHg CV PACS Anatomical Region Laterality Modality Ultrasound Narrative 04/24/2025 10:30 AM EDT This is a technically difficult study. Most of the apical views are not available. Left ventricle cavity size is normal. Left ventricular systolic function is in the normal range with an ejection fraction of 55-60%. Limited parasternal views showed no wall motion abnormality. Right ventricular size cannot be accurately assessed due to limitation of apical windows. Right ventricular systolic function is normal. No hemodynamic significant valvular disease. Left Ventricle Left ventricle cavity size is normal. There is mild hypertrophy. Systolic function is normal with an ejection fraction of 55-60%. There are no regional LV wall motion abnormalities. There is no diastolic dysfunction. Right Ventricle Systolic function is normal. Left Atrium Left atrium not assessed due to poor image quality. Right Atrium Right atrium was not assessed. IVC/SVC Inferior vena cava structure is normal. RA pressures is estimated to be 3 mmHg (IVC diameter <21 mm and decreases >50% during inspiration). Mitral Valve The leaflets are mildly thickened. There is mild regurgitation. There is no evidence of mitral valve stenosis. Tricuspid Valve The leaflets exhibit normal excursion. There is trace regurgitation. The RVSP is estimated at 13 mmHg. Aortic Valve The aortic valve is trileaflet. The leaflets are mildly thickened. There is no regurgitation or stenosis. Pulmonic Valve Pulmonic valve structure is normal. There is no pulmonic valve regurgitation. Ascending Aorta The aorta appears normal in size. Pericardium There is an fat pad. There is a trivial pericardial effusion. Study Details Overall the study quality was technically difficult. Definity contrast was given to enhance imaging. Study was difficult due to: low parasternal window, procedure performed with the patient in a supine position and poor acoustic windows. us Patti WASHBURN CV ECHO PROCEDURES Final Resu lt * (ABNORMAL) Drug abuse screen 8a panel, urine (04/24/2025 12:34 AM EDT) [facility] Amphetamine Screen, Ur Negative Negative LAB CHEMISTRY METHOD 5 1:18 AM [facility] Comment:Certain OTC medicati ons containing ephedrine, phenylephrine, pseudoephedrine and phenylpropanolamine can cause false positive results. Barbiturate Screen, Ur Negative Negative LAB CHEMISTRY METHOD 5 1:18 AM [facility] Benzodiazepine Screen, Ur Negative Negative LAB CHEMISTRY METHOD 5 1:18 AM [facility] Cocaine Screen, Ur Negative Negative LAB CHEMISTRY METHOD 5 1:18 AM [facility] Opiate Screen, Ur Positive(A ) Negative LAB CHEMISTRY METHOD 5 1:18 AM [facility] Cannabinoid (THC) Screen, Ur Positive(A ) Negative LAB CHEMISTRY METHOD 5 1:18 AM [facility] Comment:Specimens from patie nts taking pantoprazole sodium (Protonix) have been shown to produce false positive results. Oxycodone Screen, Ur Negative Negative LAB CHEMISTRY METHOD 1:18 AM EDT [facility] Fentanyl, Ur Negative Negative LAB CHEMISTRY METHOD 1:18 AM EDT [facility] Urine Urine specimen obtained by clean catch procedure / Unknown Non-blood Collection / Unknown 04/24/2025 12:34 AM EDT 04/24/2025 12:48 AM EDT Narrative [facility] - 04/24/2025 1:18 AM EDT Assay cutoffs: Amphetamines 1000 ng/mL Barbiturates 200 ng/mL Benzodiazepines 200 ng/mL Cocaine 300 ng/mL Fentanyl 1 ng/mL Opiates 300 ng/mL Oxycodone 100 ng/mL THC 50 ng/mL Semi-quantitative assay for screening purposes only. Unconfirmed screening result should not be used for non-medical purposes. *ALTERNATE METHOD CONFIRMATION DONE UPON REQUEST ONLY* Patti WASHBURN LAB URINE ORDERABLES Final Re sult Performing Organization Address [facility]/ZIP Co de Phone Number [facility] [address] [place] [address], [place] [phone] * Sodium, urine, random (04/24/2025 12:34 AM EDT) Sodium, Ur 22 mmol/L LAB CHEMISTRY METHOD 04/24/2025 1:23 AM EDT [facility] Urine Urine specimen from urethra / Unknown Non-blood Collection / Unknown 04/24/2025 12:34 AM EDT 04/24/2025 12:48 AM EDT Patti WASHBURN LAB URINE ORDERABLES Final Re sult Performing Organization Address City/[facility]/ZIP Co de Phone Number [facility] [address] [place] [address], [place] [phone] * Osmolality, urine (04/24/2025 12:34 AM EDT) Pathologist [facility] [place] Osmolality, Urine 500 300 - 1,300 mOsm/kg LAB CHEMISTRY METHOD 04/24/2025 2:58 AM EDT [facility] Urine Urine specimen obtained by clean catch procedure / Unknown Non-blood Collection / Unknown 04/24/2025 12:34 AM EDT 04/24/2025 12:48 AM EDT us Patti WASHBURN LAB URINE ORDERABLES Final Re sult [facility] [address] [place] [address], [place] [phone] * ECG-Annotated (04/24/2025) us Provider Onbase ECG ORDERABLES Final Result * Type and screen (04/23/2025 10:55 PM EDT) Pathologist [facility] [place] ABO Group B 04/23/2025 11:57 PM EDT [facility] Rh Type Positive 04/23/2025 11:57 PM EDT [facility] Antibody Screen Negative 04/23/2025 11:57 PM EDT [facility] Blood Venous blood specimen / Unknown Venipuncture / Unknown 04/23/2025 10:55 PM EDT 04/23/2025 10:57 PM EDT us Derick Pace MD LAB BLOOD BANK TEST ORDER YOON Final Result [facility] [address] [place] [address], [place] [phone] * CT Pelvis wo Contrast (04/23/2025 7:50 PM EDT) Anatomical Region Laterality Modality Body, Pelvis Computed Tomogra phy 04/23/2025 8:42 PM EDT Impressions 04/23/2025 8:42 PM EDT Acute complete oblique intertrochanteric right hip fracture with mild impaction and varus angulation. CT Pelvis Without IV Contrast. Comparison: None Findings: Acute complete oblique intertrochanteric right hip fracture with mild impaction and varus angulation. No additional fracture throughout the sacrum/pelvis. No diastasis at the pubic symphysis. Pelvic ring structures intact. Moderate degenerative narrowing bilateral hip joints. Degenerative changes through the lower lumbar spine. Soft tissues without significant hematoma. No radiodense foreign bodies. No post-traumatic free pelvic fluid. Bladder decompressed by Dejesus catheter. IMPRESSION: Acute complete oblique intertrochanteric right hip fracture with mild impaction and varus angulation. No additional acute fracture about the hips / pelvis. This document has been electronically signed by: Destiney Gonzalez MD on 04/23/2025 20:42:41 Narrative 04/23/2025 8:42 PM EDT INDICATION: right hip pain, unable to bare weight, cq hip/pelvis fx CT right hip without contrast. Comparison: None Findings: Bones/joints: Acute complete oblique intertrochanteric right hip fracture with mild impaction and varus angulation. No dislocation. Moderate degenerative hip joint space narrowing. No suspicious osseous lesions. No evidence for femoral head AVN. Soft tissues: No significant soft tissue hematoma. No radiodense foreign body. Procedure Note Destiney Gonzalez MD - 04/23/2025 INDICATION: right hip pain, unable to bare weight, cq hip/pelvis fx CT right hip without contrast. Comparison: None Findings: Bones/joints: Acute complete oblique intertrochanteric right hipfracture with mild impaction and varus angulation. No dislocation. Moderate degenerative hip joint space narrowing. No suspicious osseous lesions.No evidence for femoral head AVN. Soft tissues: No significant soft tissue hematoma. No radiodense foreign body. IMPRESSION: Acute complete oblique intertrochanteric right hip fracture with mild impaction and varus angulation. CT Pelvis Without IV Contrast. Comparison: None Findings: Acute complete oblique intertrochanteric right hip fracture with mild impaction and varus angulation. No additional fracture throughout the sacrum/pelvis. No diastasis at the pubic symphysis. Pelvic ringstructures intact. Moderate degenerative narrowing bilateral hip joints.Degenerative changes through the lower lumbar spine. Soft tissues without significant hematoma. No radiodense foreign bodies. No post-traumatic free pelvic fluid. Bladder decompressed by Dejesus catheter. IMPRESSION: Acute complete oblique intertrochanteric right hip fracture with mild impaction and varus angulation. No additional acute fracture about the hips / pelvis. This document has been electronically signed by: Destiney Gonzalez MD on 04/23/2025 20:42:41 Paulie Riddle MD IM CT PROCEDURES Final Result * (ABNORMAL) Urinalysis with reflex microscopic and culture (04/23/2025 7:36 PM EDT) [facility] [place] Urine 1.014 1.003 - 1.030 LAB URINALYSIS - AUTOMATED METHOD 04/23/2025 8:11 PM [facility] pH, Urine 6.0 5.0 - 8.0 pH LAB URINALYSIS - AUTOMATED METHOD 04/23/2025 8:11 PM [facility] Leukocytes, Urine Negative Negative LAB URINALYSIS - AUTOMATED METHOD 04/23/2025 8:11 PM [facility] Nitrite, Urine Negative Negative LAB URINALYSIS - AUTOMATED METHOD 04/23/2025 8:11 PM [facility] Protein, Urine Negative <=Trace mg/dL LAB URINALYSIS - AUTOMATED METHOD 04/23/2025 8:11 PM [facility] Glucose, Urine Negative Negative mg/dL LAB URINALYSIS - AUTOMATED METHOD 04/23/2025 8:11 PM [facility] Ketones, Urine Negative Negative mg/dL LAB URINALYSIS - AUTOMATED METHOD 04/23/2025 8:11 PM [facility] Urobilinogen, Urine 0.2 0.2 - 1.0 mg/dL LAB URINALYSIS - AUTOMATED METHOD 04/23/2025 8:11 PM [facility] Bilirubin, Urine Negative Negative LAB URINALYSIS - AUTOMATED METHOD 04/23/2025 8:11 PM [facility] Blood, Urine Trace(A) Negative LAB URINALYSIS - AUTOMATED METHOD 04/23/2025 8:11 PM [facility] RBC, Urine 0.5 0 - 4 /HPF LAB URINALYSIS - AUTOMATED METHOD 04/23/2025 8:11 PM [facility] WBC, Urine 0.4 0 - 4 /HPF LAB URINALYSIS - AUTOMATED METHOD 04/23/2025 8:11 PM [facility] Squamous Epithelial, Urine 11 0 - 60 /LPF LAB URINALYSIS - AUTOMATED METHOD 04/23/2025 8:11 PM [facility] Bacteria, Urine Negative Negative /HPF LAB URINALYSIS - AUTOMATED METHOD 04/23/2025 8:11 PM [facility] Hyaline Casts, Urine 0.0 0 - 3 /LPF LAB URINALYSIS - AUTOMATED METHOD 04/23/2025 8:11 PM [facility] Urine Urine specimen obtained by clean catch procedure / Unknown Non-blood Collection / Unknown 04/23/2025 7:36 PM EDT 04/23/2025 7:46 PM EDT us Mariza Law MD LAB URINE ORDERABLES Final Resul t [facility] [address] [place] [address], [place] [phone] * Dailey urine culture tube (04/23/2025 7:36 PM EDT) Extra Tube Hold for add-ons. 04/23/2025 9:01 PM EDT [facility] Comment:Auto resulted. Urine Urine specimen obtained by clean catch procedure / Unknown Non-blood Collection / Unknown 04/23/2025 7:36 PM EDT 04/23/2025 7:46 PM EDT us Mariza Law MD LAB URINE ORDERABLES Final Resul t Performing Organization Address [facility] Co de Phone Number [facility] [address] [place] [address], [place] [phone] * XR Pelvis 1-2 Views (04/23/2025 7:06 PM EDT) Anatomical Region Laterality Modality Body, Pelvis Radiographic Brittani ging 04/24/2025 8:25 AM EDT Impressions 04/24/2025 8:26 AM EDT Displaced intertrochanteric right femoral fracture. -------- FINAL REPORT -------- Dictated By: Iván Guerra Dictated Date: 04/24/2025 08:25 ET Assigned Physician: Iván Guerra Reviewed and Electronically Signed By: Iván Guerra Signed Date: 04/24/2025 08:26 ET Workstation ID: [id number] Transcribed By: Self Edit Transcribed Date: 04/24/2025 08:25 ET Narrative 04/24/2025 8:26 AM EDT EXAMINATION: PELVIS CLINICAL INFORMATION: Fall COMPARISON: None. TECHNIQUE: Frontal view of the pelvis FINDINGS: The SI joints hips and symphysis are in normal alignment. There is a displaced intertrochanteric right proximal femoral fracture. This may involve the lesser trochanter being slightly comminuted. There is degenerative change in the visualized lower spine. There is a catheter projecting over the expected region of the urinary bladder. There are arterial calcifications. Procedure Note Iván Guerra MD - 04/24/2025 EXAMINATION: PELVIS CLINICAL INFORMATION: Fall COMPARISON: None. TECHNIQUE: Frontal view of the pelvis FINDINGS: The SI joints hips and symphysis are in normal alignment. There is a displaced intertrochanteric right proximal femoral fracture. This may involve the lesser trochanter being slightly comminuted. There is degenerative change in the visualized lower spine. There is acatheter projecting over the expected region of the urinary bladder. Thereare arterial calcifications. IMPRESSION: Displaced intertrochanteric right femoral fracture. -------- FINAL REPORT -------- Dictated By: Iván Guerra Dictated Date: 04/24/2025 08:25 ET Assigned Physician: Iván Guerra Reviewed and Electronically Signed By: Iván Guerra Signed Date: 04/24/2025 08:26 ET Workstation ID: [id number] Transcribed By: Self Edit Transcribed Date: 04/24/2025 08:25 ET Mariza Law MD IMG XR PROCEDURES Final Result * XR Chest 1 View (04/23/2025 7:06 PM EDT) Anatomical Region Laterality Modality Body Radiographic Brittani ging 04/24/2025 8:23 AM EDT Impressions 04/24/2025 8:23 AM EDT FINDINGS/IMPRESSION: No pneumonia or pulmonary edema. No pleural effusion or pneumothorax. Cardiac silhouette is normal in size. Degenerative changes seen throughout the bones. -------- FINAL REPORT -------- Dictated By: RASHAUN GODOY Dictated Date: 04/24/2025 08:23 ET Assigned Physician: RASHAUN GODOY Reviewed and Electronically Signed By: RASHAUN GODOY Signed Date: 04/24/2025 08:23 ET Workstation ID: [id number] Transcribed By: Self Edit Transcribed Date: 04/24/2025 08:23 ET Narrative 04/24/2025 8:23 AM EDT XR CHEST 1 VIEW INDICATION: Chest pain TECHNIQUE: XR CHEST 1 VIEW COMPARISON: 04/21/2022 Procedure Note Rashaun Godoy MD - 04/24/2025 XR CHEST 1 VIEW INDICATION: Chest pain TECHNIQUE: XR CHEST 1 VIEW COMPARISON: 04/21/2022 IMPRESSION: FINDINGS/IMPRESSION: No pneumonia or pulmonary edema. No pleural effusionor pneumothorax. Cardiac silhouette is normal in size. Degenerativechanges seen throughout the bones. -------- FINAL REPORT -------- Dictated By: RASHAUN GODOY Dictated Date: 04/24/2025 08:23 ET Assigned Physician: RASHAUN GODOY Reviewed and Electronically Signed By: RASHAUN GODOY Signed Date: 04/24/2025 08:23 ET Workstation ID: [id number] Transcribed By: Self Edit Transcribed Date: 04/24/2025 08:23 ET Mariza Law MD IMG XR PROCEDURES Final Result * XR Knee 1-2 Views Right (04/23/2025 7:06 PM EDT) Anatomical Region Laterality Modality Lower Extremities, Knee Right Radiogra [facility] 04/23/2025 8:32 PM EDT Impressions 04/23/2025 8:32 PM EDT No acute fracture or dislocation. Degenerative changes. This document has been electronically signed by: Destiney Gonzalez MD on 04/23/2025 20:32:34 Narrative 04/23/2025 8:32 PM EDT INDICATION: accidental fall 2 view right knee Comparison: None Findings: Bones/joints: No acute fracture or dislocation. Moderate medial and mild lateral degenerative narrowing about the knee joint compartments. No suspicious osseous lesions. Soft tissues: No radiodense foreign body. Procedure Note Destiney Gonzalez MD - 04/23/2025 INDICATION: accidental fall 2 view right knee Comparison: None Findings: Bones/joints: No acute fracture or dislocation. Moderate medial and mild lateral degenerative narrowing about the knee joint compartments. No suspicious osseous lesions. Soft tissues: No radiodense foreign body. IMPRESSION: No acute fracture or dislocation. Degenerative changes. This document has been electronically signed by: Destiney Gonzalez MD on 04/23/2025 20:32:34 us Mariza Law MD IMG XR PROCEDURES Final Result * CT Cervical Spine wo Contrast (04/23/2025 4:24 PM EDT) Anatomical Region Laterality Modality Spine, C-spine Computed Tomogra phy 04/23/2025 4:38 PM EDT Impressions 04/23/2025 4:40 PM EDT No acute fracture. -------- FINAL REPORT -------- Dictated By: Rose Bee Dictated Date: 04/23/2025 16:38 ET Assigned Physician: Rose Bee Reviewed and Electronically Signed By: Rose Bee Signed Date: 04/23/2025 16:40 ET Workstation ID: [id number] Transcribed By: Self Edit Transcribed Date: 04/23/2025 16:38 ET Narrative 04/23/2025 4:40 PM EDT PROCEDURE: CT Cervical Spine INDICATION: head trauma, neck pain TECHNIQUE: Noncontrast CT of the cervical spine with multiplanar reformats. The examination was performed utilizing dose reduction techniques. DLP: 1959mGy/cm COMPARISON: No priors available. FINDINGS: No fracture. Multilevel degenerative changes are seen throughout the cervical spine with endplate irregularities, disc height loss, uncovertebral spurring and facet arthropathy present. Anterolisthesis of C4 and C5. Multilevel neuroforaminal narrowing.. Lung apices are clear. Soft tissues of the neck are unremarkable. Procedure Note Rose Bee MD - 04/23/2025 PROCEDURE: CT Cervical Spine INDICATION: head trauma, neck pain TECHNIQUE: Noncontrast CT of the cervical spine with multiplanarreformats. The examination was performed utilizing dose reduction techniques. DLP:1959mGy/cm COMPARISON: No priors available. FINDINGS: No fracture. Multilevel degenerative changes are seen throughout the cervical spinewith endplate irregularities, disc height loss, uncovertebral spurring andfacet arthropathy present. Anterolisthesis of C4 and C5. Multilevelneuroforaminal narrowing.. Lung apices are clear. Soft tissues of the neck are unremarkable. IMPRESSION: No acute fracture. -------- FINAL REPORT -------- Dictated By: Rose Bee Dictated Date: 04/23/2025 16:38 ET Assigned Physician: Rose Bee Reviewed and Electronically Signed By: Rose Bee Signed Date: 04/23/2025 16:40 ET Workstation ID: [id number] Transcribed By: Self Edit Transcribed Date: 04/23/2025 16:38 ET Mariza Law MD [facility] CT PROCEDURES Final Result * CT Head wo Contrast (04/23/2025 4:24 PM EDT) Anatomical Region Laterality Modality Head and Neck Computed Tomogra phy 04/23/2025 4:36 PM EDT Impressions 04/23/2025 4:38 PM EDT No acute intracranial hemorrhage, mass effect, or large territorial infarct. -------- FINAL REPORT -------- Dictated By: Rose Bee Dictated Date: 04/23/2025 16:36 ET Assigned Physician: Rose Bee Reviewed and Electronically Signed By: Rose Bee Signed Date: 04/23/2025 16:38 ET Workstation ID: [id number] Transcribed By: Self Edit Transcribed Date: 04/23/2025 16:36 ET Narrative 04/23/2025 4:38 PM EDT PROCEDURE: HEAD CT INDICATION: accidental fall TECHNIQUE: CT of the head without intravenous contrast. Multiplanar reformats. The examination was performed utilizing dose reduction techniques. Total DLP 1958 COMPARISON: No priors available. FINDINGS: No acute territorial infarct, mass effect, or intracranial hemorrhage. Moderate scattered periventricular and subcortical white matter hypodensities are most likely related to chronic small vessel ischemic change. CSF spaces commensurate for degree of volume loss. No hydrocephalus. Visualized paranasal sinuses are clear. Mastoid air cells are clear. No calvarial fracture. Procedure Note Rose Bee MD - 04/23/2025 PROCEDURE: HEAD CT INDICATION: accidental fall TECHNIQUE: CT of the head without intravenous contrast. Multiplanarreformats. The examination was performed utilizing dose reductiontechniques. Total DLP 1958 COMPARISON: No priors available. FINDINGS: No acute territorial infarct, mass effect, or intracranial hemorrhage. Moderate scattered periventricular and subcortical white matterhypodensities are most likely related to chronic small vessel ischemicchange. CSF spaces commensurate for degree of volume loss. No hydrocephalus. Visualized paranasal sinuses are clear. Mastoid air cells are clear. No calvarial fracture. IMPRESSION: No acute intracranial hemorrhage, mass effect, or large territorialinfarct. -------- FINAL REPORT -------- Dictated By: Rose Bee Dictated Date: 04/23/2025 16:36 ET Assigned Physician: Rose Bee Reviewed and Electronically Signed By: Rose Bee Signed Date: 04/23/2025 16:38 ET Workstation ID: [id number] Transcribed By: Self Edit Transcribed Date: 04/23/2025 16:36 ET us Mariza Law MD IMG CT PROCEDURES Final Result * Troponin I high sensitivity (04/23/2025 4:00 PM EDT) Only the most recent of2 resultswithin the time period is included. Pathologist [facility] [place] High Sensitivity Troponin I 6 <=79 ng/L LAB CHEMISTRY METHOD 04/23/2025 4:35 PM EDT [facility] Blood Venous blood specimen / Unknown Venipuncture / Unknown 04/23/2025 4:00 PM EDT 04/23/2025 4:10 PM EDT Narrative [facility] - 04/23/2025 4:35 PM EDT High levels of biotin in samples may falsely decrease hsTroponin values. Use caution when interpreting hsTroponin results in patients taking biotin who exhibit renal impairment (eGFR <60) or in patients taking more than 20 mg/day of biotin. us Mariza Law MD LAB BLOOD ORDERABLES Final Resul t [facility] [address] [place] [address], [place] [phone] * (ABNORMAL) Osmolality (04/23/2025 4:00 PM EDT) Osmolality Ami 277(L) 280 - 300 mOsm/kg LAB CHEMISTRY METHOD 04/23/2025 10:44 PM EDT [facility] Blood Venous blood specimen / Unknown Venipuncture / Unknown 04/23/2025 4:00 PM EDT 04/23/2025 4:10 PM EDT Patti WASHBURN LAB BLOOD ORDERABLES Final Re sult Performing Organization Address [facility] de Phone Number [facility] [address] [place] [address], [place] [phone] * Ethanol (04/23/2025 4:00 PM EDT) Pathologist [facility] Ethanol Level <3 0 - 10 mg/dL LAB CHEMISTRY METHOD 04/24/2025 12:55 AM EDT [facility] Blood Venous blood specimen / Unknown Venipuncture / Unknown 04/23/2025 4:00 PM EDT 04/23/2025 4:10 PM EDT Patti WASHBURN LAB BLOOD ORDERABLES Final Re sult Performing Organization Address [facility] de Phone Number [facility] [address] [place] [address], [place] [phone] * APTT (04/23/2025 2:45 PM EDT) Pathologist [facility] aPTT 35.9 24.1 - 39.3 sec LAB COAGULATION METHOD 04/23/2025 3:19 PM EDT [facility] Blood Venous blood specimen / Unknown Venipuncture / Unknown 04/23/2025 2:45 PM EDT 04/23/2025 2:59 PM EDT Mariza Law MD LAB BLOOD ORDERABLES Final Resul t [facility] [address] [place] [address], [place] [phone] * Protime-INR (04/23/2025 2:45 PM EDT) Pathologist [facility] Protime 12.8 10.6 - 13.9 sec LAB COAGULATION METHOD 04/23/2025 3:19 PM EDT [facility] INR 1.0 LAB COAGULATION METHOD 04/23/2025 3:19 PM EDT [facility] Blood Venous blood specimen / Unknown Venipuncture / Unknown 04/23/2025 2:45 PM EDT 04/23/2025 2:59 PM EDT us Mariza Law MD LAB BLOOD ORDERABLES Final Resul t Performing Organization Address [facility] Co de Phone Number [facility] [address] [place] [address], [place] [phone] * Creatine kinase (04/23/2025 2:45 PM EDT) [facility] Total CK 184 22 - 269 unit/L LAB CHEMISTRY METHOD 04/23/2025 3:31 PM EDT [facility] Blood Venous blood specimen / Unknown Venipuncture / Unknown 04/23/2025 2:45 PM EDT 04/23/2025 2:59 PM EDT us Mariza Law MD LAB BLOOD ORDERABLES Final Resul t Performing Organization Address [facility]/ZIP Co de Phone Number [facility] [address] [place] [address], [place] [phone] * SPECIMEN STATUS REPORT (04/14/2025 11:52 AM EDT) Pathologist [facility] [place] Specimen Status Report Comment [facility] 1 Comment: Jovi Angel BMP8 Default Jovi Angel BMP8 Default A hand-written panel/profile was received from your office. In accordance with the [facility] Ambiguous Test Code Policy dated January 2003, we have completed your order by using the closest currently or formerly recognized AMA panel. We have assigned Basic Metabolic Panel (8), Test Code #468836 to this request. If this is not the testing you wished to receive on this specimen, please [facility] to clarify the test order. We appreciate your business. 04/14/2025 11:5 2 AM EDT 04/14/2025 Narrative [facility] - 04/15/2025 4:06 AM EDT Performed at: - [address] [id number] Stage Hand: Hoa Green MD, Phone: [phone] Krista Ham MD LAB BLOOD ORDERABLES Final Res ult Performing Organization Address [facility] Co de Phone Number [facility] * (ABNORMAL) Lipid panel with direct LDL (04/14/2025 11:52 AM EDT) Pathologist [facility] [place] Cholesterol Total 194 100 - 199 mg/dL [facility] 1 Triglycerides 155(H) 0 - 149 mg/dL [facility] HDL Cholesterol 71 >39 mg/dL [facility] VLDL Cholesterol Calculated 26 5 - 40 mg/dL [facility] LDL Chol Calc (NIH) 97 0 - 99 mg/dL [facility] 1 LDL Calc Comment Comment [facility] 1 Comment:See LDL Comment if r eported. LDL Chol. (Direct) 103(H) 0 - 99 mg/dL [facility] 1 04/14/2025 11:5 2 AM EDT 04/14/2025 Narrative [facility] 1 - 04/15/2025 8:08 AM EDT Performed at: - [address] [id number] Stage Hand: Hoa Green MD, Phone: [phone] Krista Ham MD LAB BLOOD ORDERABLES Final Res ult Performing Organization Address [facility] Co de Phone Number [facility] 1 from Last 3 Months Additional Health Concerns Active Problems Noted Date Diagnosed Date Autogenerated Problem 04/24/2025 Insurance MEDICARE [place]ICA[place] - [place] Advance Directives Documents on File Type Date Recorded Patient Diversity Intern Expl anation Advance Directives and Living Will 05/05/2025 11:01 AM HEALTH CARE PROXY * Full Code - Default (Latest Code Status on File) Date Activated Date Inactivated Comments 04/28/2025 1:40 PM 05/06/2025 1:26 PM This is ord er is used when code status has not been discussed with the patient, or code status is otherwise unknown/unconfirmed To update the patient's code status, place a code status order. Do not modify or discontinue any currently active code status orders. * Full Code - Default Date Activated Date Inactivated Comments 04/23/2025 10:20 PM 04/28/2025 12:29 PM This is or cecilia is used when code status has not been discussed with the patient, or code status is otherwise unknown/unconfirmed To update the patient's code status, place a code status order. Do not modify or discontinue any currently active code status orders. Care Teams [place] Manager Relationship Specialty Start Date End Date Burks, Jj, MD [facility] [place] [address] PCP - General Family Medicine 05/06/25
== END 2025-06-05 10:08 | disposition home or self-care (01) ==
LOC: HO.HMCFMS 09:30
PROVIDERS: PCP Student in an Organized Health Care Education/Training Program; Visit Provider Student in an Organized Health Care Education/Training Program
DX: S72.91XA Unspecified fracture of right femur, initial encounter for closed fracture (principal); M54.50 Low back pain, unspecified; G89.29 Other chronic pain; I50.9 Heart failure, unspecified; F17.200 Nicotine dependence, unspecified, uncomplicated; L85.3 Xerosis cutis

== ENCOUNTER 2025-06-05 09:29 | Outpatient (REF) | payer MEDICARE, MEDICAID, SELFPAY ==
[2025-06-05 13:10] LABS: Appearance Urine Clear; Glucose Urine UA Negative (Negative); PH 7.0 (5.0-9.0); Specific Gravity - Urine 1.015 (1.005-1.025)
[2025-06-05 13:29] LABS: MANUAL DIFF FLAG NO
[2025-06-05 13:39] LABS: Hematocrit 33.0 % (42.0-52.0); Hemoglobin 10.8 g/dl (14.0-18.0); Imm Gran Abs Auto 0.05 X10*3/uL (0.00-0.03); Imm Gran Pct Auto 0.4 % (0.0-0.4); Lymphocytes Absolute Auto 1.2 X10*3/uL (1.2-4.9); Mean Corpuscular HGB Conc 32.7 g/dl (31.0-36.0); Mean Corpuscular Hemoglobin 31.5 pg (27.0-33.0); Mean Corpuscular Volume 96.2 fL (80.0-98.0); NRBC Abs Auto 0.000 X10*3/uL (0.0-0.012); NRBC Pct Auto 0.0 /100WBC (0.0-0.2); Platelet Count 506 X10*3/uL (160-400); Red Blood Count 3.43 X10*6/uL (4.60-5.80); White Blood Count 11.6 X10*3/uL (4.8-10.8)
[2025-06-05 14:12] LABS: Alanine Aminotransferase 15 U/L (0-40); Albumin Level 4.3 g/dL (3.5-5.0); Alkaline Phosphatase 98 U/L (39-117); Anion Gap 12 (12-20); Aspartate Amino Transferase 24 U/L (5-37); Blood Urea Nitrogen 17 mg/dL (9-16); Calcium 9.5 mg/dL (8.4-10.2); Carbon Dioxide 26 mmol/L (22-29); Chloride 96 mmol/L (96-108); Cholesterol 174 mg/dL (<200); Estimated Glomerular Filt Rate > 60; HDL Cholesterol 63 mg/dL (>40); Magnesium 2.1 mg/dL (1.6-2.6); Potassium 4.4 mmol/L (3.3-5.1); Sodium 130 mmol/L (135-145); Total Protein 8.1 g/dL (6.5-8.0); Triglycerides 135 mg/dL (<150)
[2025-06-05 14:45] LABS: Folate 11.3 ng/mL (> or = 4.0); Vitamin B12 267 pg/mL (200-900)
[2025-06-05 14:50] LABS: HBS Num1 149.69 mIU/mL (0-7.99); HBsAGNum1 0.36 S/CO (0.00-0.99); HIV Num 1 0.06 S/CO (0.00-0.99); Hepatitis B Surface Antigen Negative (Negative); ~HepC Num1 15.27 S/CO (0.00-0.79); ~Hepatitis B Surface Antibody REACTIVE (Nonreactive); ~Hepatitis C Antibody Reactive (Nonreactive)
[2025-06-05 15:01] LABS: Syphilis Screen Nonreactive (Nonreactive)
[2025-06-09 13:08] LABS: VITAMIN D (1,25 OH) D3 21 pg/mL; Vit D (1,25-Dihydroxy) Total 21 pg/mL (18-72); Vitamin D (1,25 OH) D2 <8 pg/mL
== END 2025-06-05 09:30 | disposition home or self-care (01) ==
LOC: HO.HKASLDS 09:29
PROVIDERS: PCP Student in an Organized Health Care Education/Training Program; Visit Provider Student in an Organized Health Care Education/Training Program
DX: L85.3 Xerosis cutis (principal); M54.50 Low back pain, unspecified; G89.29 Other chronic pain; I50.9 Heart failure, unspecified; F17.210 Nicotine dependence, cigarettes, uncomplicated; S72.91XA Unspecified fracture of right femur, initial encounter for closed fracture; E55.9 Vitamin D deficiency, unspecified; X58.XXXA Exposure to other specified factors, initial encounter; Y93.9 Activity, unspecified; Y92.9 Unspecified place or not applicable; Y99.9 Unspecified external cause status; Z13.1 Encounter for screening for diabetes mellitus
CPT/HCPCS: 36415; 80053; 80061; 81003; 82607; 82652; 82746; 83036; 83735; 84443; 85025; 86706; 86780; 86803; 87340; 87389; 96127; 99202

== ENCOUNTER 2025-06-23 09:57 | Outpatient (REF) | payer MEDICARE, MEDICAID, SELFPAY ==
[2025-06-25 08:03] LABS: HCV RNA PCR Qn 5.81 Log IU/mL (NOT DETECTED)
== END 2025-06-23 09:58 | disposition home or self-care (01) ==
LOC: HO.HKASLDS 09:57
PROVIDERS: PCP Student in an Organized Health Care Education/Training Program; Visit Provider Student in an Organized Health Care Education/Training Program
DX: R76.89 Other specified abnormal immunological findings in serum (principal); D64.9 Anemia, unspecified; R79.89 Other specified abnormal findings of blood chemistry
CPT/HCPCS: 36415; 87522; 87902; 90471; 96127; 99212

== ENCOUNTER 2025-06-23 09:57 | Outpatient (AMB) | payer MEDICARE, MEDICAID, SELFPAY ==
[2025-06-23 10:03] VITALS: BP 157/70; PULSE 67; TEMP 36.5; O2SAT 97; BMI 21.6
--- NOTE | 2025-06-23 10:03 | A.OFFPC_ITS ---
Vital Signs 06/23/25 10:03 Height 5 ft 7.72 in Weight 141 lb BMI 21.6 BP 157/70 H Blood Pressure Location Rt brachial Position Sitting Pulse 67 Pulse Source Pulse Oximeter Temp 97.7 F Temp Source Oral Pulse Oximetry (%) 97 Oxygen Delivery Method Room Air Intake Visit Reasons: 2 week follow up Accompanied by: Self / Same As Patient Allergies No Known Allergies Allergy (Verified 06/23/25 10:03) Medication List - Last Reconciled 06/23/25 by Jj Burks MD acetaminophen 1,000 mg PO Q8H ammonium lactate 5% (Lac-Hydrin Five) 1 appl topical BID apixaban (Eliquis) 5 mg PO BID ascorbic acid (vitamin C) 500 mg PO DAILY ergocalciferol (vitamin D2) 1,250 mcg PO QWEEK ferrous sulfate 325 mg PO DAILY losartan 25 mg PO DAILY mecobalamin (vitamin B12) 1,000 mcg sublingual BEDTIME metoprolol succinate ER 75 mg PO DAILY polyethylene glycol 3350 (Gavilax) 17 grams PO DAILY rosuvastatin 5 mg PO DAILY spironolactone 25 mg PO DAILY Tobacco use date assessed: 06/23/25 Fall risk assessment: 1 Fall in past year Last assessed Fall Risk: 06/23/25 Dental Screening Dental Screen Date: 06/23/25 Did you have a dental visit in the last 12 months?: No HPI HPI Comments History of Present Illness Details History of Present Illness The patient is a 69 year old individual presenting for review of laboratory results and medication management. Anemia: Recent labs revealed low red blood cells, hemoglobin, and hematocrit, indicating anemia. The patient reports a history of anemia as a child. The patient also reports feeling tired and not sleeping well, but is unsure if this is related to the anemia or the patient's medications. Vitamin Deficiencies: The patient's lab results show low vitamin B12. Vitamin D levels were also on the lower side at 21. The patient reports experiencing muscle cramps. The patient is not currently taking any vitamin B12 supplements and reports drinking a lot of milk for vitamin D. Hyponatremia: The patient's sodium level is low at 130. The patient reports intentionally avoiding sodium due to blood pressure management and feels well. Positive Hepatitis C Antibody: The patient tested positive for the hepatitis C antibody. The patient denies a personal history of hepatitis C but reports that the patient's brother had it. The patient has a history of receiving blood transfusions prior to a hernia surgery. Hypertension: The patient is on multiple antihypertensive medications including losartan, metoprolol, and spironolactone, which are taken every morning. The patient actively avoids sodium to manage blood pressure. Surgical History: - Hernia repair, date unspecified Medications: - Eliquis, taken in the morning and at n ight - Losartan, taken every morning - Metoprolol, taken every morning - Rosuvastatin, taken every morning - Spironolactone, taken every morning Social History: - Functional Status: Reports poor sleep at night, taking naps, and feeling tired. - Diet: Reports intentionally restrictin g sodium intake due to blood pressure. - The patient reports drinking a lot of milk. Family History: - Brother had hepatitis C and is now dec eased. Diagnostic Results: - Labs: - Red blood cells, hemoglobin, and hemat ocrit are low. - Sodium is low at 130. - Kidney and liver function are normal. - Hemoglobin A1c and glucose are normal. - Cholesterol levels are normal. - Vitamin B12 is low. - Vitamin D is low at 21. - Folate and thyroid stimulating hormone are normal. - Urinalysis is normal. - Hepatitis C antibody is positive. Past Medical History - Anemia in childhood - History of blood transfusion prior to hernia surgery Health Maintenance - The patient was advised to follow up w ith a metal grinder. - Ordered a Hepatitis C viral load test to screen for active infection after a positive antibody result. - Discussed dietary sodium restriction f or blood pressure management. [facility] Medical History (Updated 06/23/25 @ 10:30 by Jj Burks MD) Low vitamin D level Low vitamin B12 level Anemia Hepatitis C antibody positive Xerosis cutis Nicotine dependence Congestive heart failure Chronic lower back pain Femur fracture, right Family History Father No problems noted. Mother No problems noted. Social History Housing: House Patient Tobacco Use Status: Current everyday Tobacco user Cigarettes Per Day: 5 service: No Current occupational status: retired Cognitive needs: Yes (walker) Hearing needs: No Vision needs: Yes (reading glasses) Questionnaire PHQ-9 Over the last 2 weeks, how often have you been bothered by any of the following problems? 1. Little interest or pleasure in doing things: not at all 2. Feeling down, depressed, or hopeless: not at all 3. Trouble falling or staying asleep, or sleeping too much: not at all 4. Feeling tired or having little energy: not at all 5. Poor appetite or overeating: not at all 6. Feeling bad about yourself - or that you are a failure or have let yourself or your family down: not at all 7. Trouble concentrating on things, such as reading the newspaper or watching television: not at all 8. Moving or speaking so slowly that other people could have noticed. Or the opposite - being so fidgety or restless that you have been moving around a lot more than usual: not at all 9. Thoughts that you would be better off or of hurting yourself in some way: not at all Total score: 0 Depression Screening Interpretation: Negative Depression Screening Done: Yes Source: Developed by Drs. Tonio Murphy, Liya Borges, Yazan Portillo and colleagues, with an educational esteban from [employer]. Thrive Questionnaire Date Thrive assessed: 06/23/25 I am a: Parent/Caregiver What is your living situation today?: I have a steady place to live Within the past 12 months, did the food you bought not last and you didn't have the money to get more?: Sometimes True Within the past 12 months, did you worry whether your food would run out before you got money to buy more?: Sometimes True Do you have trouble paying for medicines?: No Do you have trouble getting transportation to medical appointments?: No Do you have trouble paying your heating and electricity bill?: No Do you have trouble taking care of your child, family member or friend?: No Are you currently unemployed and looking for a job?: No Are you interested in more education?: No Please select the resources that you would like help with: None Currently or been in a relationship where the following occur: No concerns reported THRIVE Score: 2 AUDIT C Alcohol Use Questionnaire (AUDIT-C) 1. How often do you have a drink containing alcohol?: Monthly or less 2. How many drinks containing alcohol do you have on a typical day when you are drinking?: 1 or 2 Total Score: 1 DANIELLE-7 AMB Questionnaire DANIELLE-7 Date DANIELLE - 7 assessed: 06/23/25 Feeling nervous, anxious, or on edge: 0 = Not at all Not being able to stop or control worryin = Not at all Worrying too much about different things: 0 = Not at all Trouble relaxin = Not at all Being so restless that it is hard to sit still: 0 = Not at all Becoming easily annoyed or irritable: 0 = Not at all Feeling afraid as if something awful might happen: 0 = Not at all Total DANIELLE-7 score (0-4 normal; 5-9 mild; 10-14 moderate; 15-21 severe): 0 Source: Developed by Drs. Tonio Murphy, Liya Borges, Yazan Portillo and colleagues, with an educational esteban from [employer]. Review of Systems Narrative Review of Systems - Constitutional: Reports fatigue and feeling tired. - Denies feeling unwell otherwise. - Neurological: Reports poor sleep at night and taking naps. - Musculoskeletal: Reports muscle cramps. - Denies muscle aches. 10-point ROS reviewed and negative except as noted in HPI Physical exam (Primary Care) Vital Signs: Last Vital Signs Temp 97.7 F 06/23/25 10:03 Pulse 67 06/23/25 10:03 BP 157/70 H 06/23/25 10:03 Pulse Ox 97 06/23/25 10:03 Oxygen Delivery Method Room Air 06/23/25 10:03 BMI result Body Mass Index 21.6 Tobacco/Smoking Status: Tobacco use Status Tobacco use date assessed 06/23/25 06/23/25 10:04 Patient Tobacco Use Status Current everyday Tobacco 06/23/25 10:04 PHQ-9: PHQ-9 Score PHQ-9: Total score 0 06/23/25 10:30 Depression Screening Interpretation: Negative Thrive Assessment: Date of Thrive Assessment Date Thrive assessed 06/23/25 06/23/25 10:04 Currently or been in a relationship where the following occur: No concerns reported Narrative Physical Exam General: Well-appearing, in no acute distress. Vital signs: Within normal limits. HEENT: Normocephalic, atraumatic. PERRLA, EOMI. Conjunctiva clear, sclera anicteric. Oropharynx clear, mucous membranes moist. TMs intact bilaterally. Neck: Supple, no lymphadenopathy, no thyromegaly, no JVD or carotid bruits. Cardiovascular: RRR, normal S1/S2, no murmurs, rubs, or gallops. Peripheral pulses 2+ and symmetric. No edema. Respiratory: Lungs clear to auscultation bilaterally, no wheezes, rales, or rhonchi. Normal effort. Abdomen: Soft, non-tender, non-distended. Normoactive bowel sounds. No hepatosplenomegaly, no masses. MSK: Full range of motion, no joint swelling or deformity. Normal gait. Skin: Warm, dry, intact. No rashes, lesions, or pallor. Neuro: Alert and oriented x3. Cranial nerves II-XII intact. Strength 5/5 throughout. Sensation intact. Reflexes 2+ symmetric. Normal coordination and gait. Psych: Appropriate mood and affect. Normal judgment and insight. Office Procedures Flu Questionnaire Does the patient have a severe egg allergy?: No Does the patient have severe life threatening allergies?: No Does the patient have a fever or illness today?: No Has the patient ever had Guillain-[place] Syndrome?: No Has the patient ever had any past reaction to a flu shot?: No Immunizations Fluarix [id number] (PF) 45 mcg (15 mcg x 3)/0.5 mL IM syringe Performing Provider: Jj Burks MD Performing Location: [facility] [place] Documented (not given) by: Meena Siegel CMA on 06/23/25 10:09 Reason Not Given: Received Previously Coding Level of Care Code Est Pt Level 3 (26638) Diagnoses Anemia D64.9 Low vitamin B12 level R79.89 Low vitamin D level R7 Hepatitis C antibody positive R7 Assessment & Plan Assessment & Plan (1) Anemia: Code(s): D64.9 - Anemia, unspecified Category: Medical (2) Low vitamin B12 level: Code(s): R79.89 - Other specified abnormal findings of blood chemistry Category: Medical (3) Low vitamin D level: Code(s): R79.89 - Other specified abnormal findings of blood chemistry Category: Medical (4) Hepatitis C antibody positive: Code(s): R7.89 - Other specified abnormal immunological findings in serum Category: Medical Plan Consent The rationale for obtaining a Hepatitis C viral load test was discussed with the patient, who understood the need for further testing to rule out an active infection following a positive antibody result. The patient was agreeable to the plan for additional bloodwork to be performed during this visit. Patient was informed and verbally consented to the use of an ambient scribe for clinic note documentation during this visit. Plan 1. Anemia - Prescribed iron and vitamin C to be taken together to improve absorption. - Instructed to take the supplements one hour before or two hours after eating. - Patient was counseled that iron may cause constipation and dark stools. - Recommended [id number] MiraLAX for constipation if it occurs. 2. Vitamin Deficiencies - Prescribed vitamin B12 to be taken every night to improve energy levels. - Prescribed vitamin D to be taken once a week to address low levels and muscle cramps. 3. Positive Hepatitis C Antibody - An order was placed for a Hepatitis C viral load test to check for active inf ection. - The patient was directed to have the blood drawn in the adjacent lab today. 4. Hyponatremia - No immediate intervention is planned as the patient is asymptomatic and the condition is likely related to intentional sodium restriction for hypertension. - Will continue to monitor. 5. Gastroenterology Follow-Up - Advised the patient to contact the metal grinder's office to schedule a follow-up appointment. Discussion Notes I reviewed the patient's recent lab results, which showed anemia, low vitamin B12, and low vitamin D. I discussed the plan to supplement with iron, vitamin C, vitamin B12, and vitamin D, explaining the dosage schedule and potential side effects of iron, such as constipation and dark stools. We discussed the finding of a positive hepatitis C antibody, and I explained that this means exposure and not necessarily active infection. Given the patient's family history and prior blood transfusions, I recommended a hepatitis C viral load test to rule out an active infection, and the patient was agreeable to having the blood drawn today. The mild hyponatremia was noted to be likely secondary to dietary sodium restriction for blood pressure and asymptomatic, requiring no immediate action. I also reinforced the need for the patient to proactively contact the metal grinder for a follow-up. Patient Instructions - Take one iron pill with vitamin C once a day. - Take this either one hour before you eat or two hours after you eat. - Your stool may become dark while taking iron, which is normal. - If you become constipated, you can take an [id number]-ztp-[id number] medication like MiraLAX. - Take one vitamin B12 pill every night. - Take one vitamin D pill once a week. - Please go to the lab next door today to have your blood drawn for one more test. - Please call the metal grinder's office to schedule your follow-up appointment. Medical Decision Making The patient is a 69-year-old individual who presented for a review of recent lab work. Labs revealed a mild anemia, for which iron and vitamin C were prescribed to improve absorption and address symptoms of fatigue. Vitamin B12 and D deficiencies were also identified and will be addressed with supplementation to improve energy and alleviate muscle cramps. The patient's hyponatremia is mild and assessed to be secondary to appropriate dietary sodium restriction for hypertension management; as the patient is asymptomatic, a monitoring approach was chosen. The most significant finding was a positive hepatitis C antibody. Considering the patient's history of blood transfusion and family history of hepatitis C, it is crucial to rule out an active infection. Therefore, a hepatitis C viral load test was ordered for immediate testing. Total Time Statement 20 MIN Total time spent caring for the patient today includes pre-visit chart review, documentation, review of laboratory and diagnostic imaging results, medication reconciliation, medically necessary evaluation, counseling on diagnoses, care coordination, ordering appropriate tests and medications, review of tests performed by other providers, reporting test results to the patient, and communication with other healthcare providers. Orders: Orders Influenza [id number] Immunization Today Z23 - Encounter for immunization Medications: New ascorbic acid (vitamin C) 500 mg PO DAILY 90 tabs 0RF ferrous sulfate 325 mg PO DAILY 90 tabs 0RF mecobalamin (vitamin B12) place tablet under tongue and allow to dissolve for at least30 secs before swallowing 1,000 mcg sublingual BEDTIME 90 tabs 0RF ergocalciferol (vitamin D2) 1,250 mcg PO QWEEK 12 caps 0RF
--- OUTSIDE RECORDS SUMMARY | 2025-06-23 11:12 | XMS_ITS | Clinical Summary ---
Author Organization [facility] [employer] [facility] Address [address] [place] [address] Phone Care Team Providers Care Project Drilling Engineer Name Role Phone Jj Burks MD Primary Care Provider [phone] Allergies No known active allergies Medications apixaban [...] time each day. 90 tablet 5 Active nicotine (NICODERM CQ) 7 mg/[address] 1 patch on the skin 1 (one) time each day. 30 each 5 Active senna (SENOKOT) 8.6 mg tablet Take 2 tablets (17.2 mg total) by mouth at bedtime. 60 each 11 5 05/05/20 26 Active acetaminophen (TYLENOL) 500 mg tablet Take 2 tablets (1,000 mg total) by mouth every 8 (eight) hours. 30 tablet 5 06/04/20 25 docusate sodium (COLACE) 100 mg capsule Take 1 capsule (100 mg total) by mouth 2 (two) times a day. 60 each 5 06/04/20 25 lidocaine 4 % patch Apply 1 patch topically 1 (one) time each day. 30 each 5 06/05/20 25 polyethylene glycol (MIRALAX) 17 gram packet Take 17 g by mouth 1 (one) time each day. 510 g 5 06/05/20 25 tamsulosin (FLOMAX) 0.4 mg 24 hr capsule Take 1 capsule (0.4 mg total) by mouth at bedtime. Capsules should be taken 30 minutes following the same meal each day. 30 each 5 06/04/20 25 Active Problems Problem Noted Date Diagnosed Date Coronary artery disease invo lving pass[place] coronary artery of [place] heart without angina pectoris 05/02/2025 Assessment & [...] 05/02/2025 Syncope and collapse 05/02/2025 Polysubstance abuse ([facility] V24, [facility] V28) 1 Femur fracture, right ([facility] V24, [facility] V28) 04/28/2025 Closed nondisplaced intertro chanteric fracture of right femur, initial encounter ([facility] V24, [facility] V28) 04/23/2025 Dizziness 01/20/2024 Claudication ([facility] V24) 02/04/2023 Atrial fibrillation ([facility] V24, [facility] V28) 0 01/25/2022 Assessment & Plan (05/21/2025 3:45 PM EDT): Patient has history of paroxysmal atrial fibrillation. ECG today showing sinus rhythm with PACs. He continues on metoprolol for rate control and Eliquis 5 mg twice daily. He is tolerating this well. Orders: ECG 12 lead HFrEF (heart failure with re duced ejection fraction) ([facility] V24, [facility] V28) 01/25/2022 Assessment & Plan (05/21/2025 3:45 [...] Description 05/21/2025 2:40 PM EDT Office Visit [facility] [address] [place] [address] Whitney Nava NP Paroxysmal atrial fibrillation (CMS/HCC V24, CMS/HCC V28) (Primary Dx); Syncope, unspecified syncope type; HFrEF (heart failure with reduced ejection fraction) (CMS/HCC V24, CMS/HCC V28); Coronary artery disease involving pass[place]quoddy coronary artery of pass[place]dy heart without angina pectoris; Hyperlipidemia, unspecified hyperlipidemia type; Primary hypertension 05/11/2025 8:08 AM EDT - 05/11/2025 11:59 PM EDT Hospital Encounter [facility] [address] [place] [address] Pain Discharge Disposition: Home or Self Care 05/04/2025 Plan of Care Documentation [facility] [address] [place] [phone] 04/28/2025 12:29 PM EDT - 05/06/2025 11:25 AM EDT Hospital Encounter [facility] [address] [place] [phone] Bernarda Huynh DO Discharge Disposition: Home-Health Care [facility] 04/26/2025 8:34 AM EDT Anesthesia Event [facility] [place] [address] [place] [address] [phone] Temo Huizar MD Dasilva, Sy Tim MD 04/26/2025 8:00 AM EDT - 04/26/2025 10:00 AM EDT Surgery [facility] OR [address] [place] [address] [phone] Gray Murillo MD GAMMA NAIL RIGHT HIP 04/23/2025 2:11 PM EDT - 04/28/2025 12:09 PM EDT Hospital Encounter [facility] [address] [place] [address] [phone] Mariza Law MD Goebel, Mathew, MD Zaidi, MD Sridhar Serna Omar D, MD Kokosadze, Estate, MD Kela, Kashyap Devendrabhai, MD Closed nondisplaced intertrochanteric fracture of right femur, initial encounter ([facility] V24, [facility] V28) (Primary Dx); Hyponatremia; Syncope, unspecified syncope type; Paroxysmal atrial fibrillation ([facility] V24, [facility] V28); HFrEF (heart failure with reduced ejection fraction) ([facility] V24, [facility] V28) Discharge Disposition: Rehab Facility from Last 3 Months Surgical History Surgery Date Site/Laterality Comments HERNIA REPAIR Left PROCEDURE: LAPAROSCOPY, INGUINAL HERNIA REPAIR Medical History Medical History Date Comments Hypertension CHF (congestive heart failure) ([facility] V24, [facility] V28) Social History Tobacco Use Types Packs/Day [...] Years (1 of 2 - PCV) 1973 Abdominal Aortic Aneurysm (AAA) Screen 06/25/2022 Hepatitis C Screening 06/25/2022 Medicare Annual Wellness Visit 06/25/2022 COVID-19 Vaccine ( season) 2025 04/24/2024, 06/16/2023, 05/04/2022, Additional history exists Hypertension/CHF/CAD Annual BMP Blood Test 05/02/2026 05/02/2025, 05/01/2025, 04/30/2025, Additional history exists Social Influencers of Health Screening 05/05/2026 05/05/2025 Falls Risk Assessment 05/06/2026 05/06/2025 Cholesterol Screening (Lipid Panel) 04/14/2030 04/14/2025 Zoster Vaccines Completed 09/24/2021, 05/30/2021 Depression Screening Completed 05/05/2025 Influenza Vaccine Completed 06/10/2025, , 06/16/2023, Additional history exists RSV Immunization Adult Patients Completed 06/10/2025 HIB Vaccines Aged Out No longer eligi [...] Associated Problems Recent Progress Patient-Stated? Author [employer]ogen[employer] machado Goal Care Plan Autogenerated Problem No Meena Martinez Medical Devices Implanted Type Area Manager Nc Device Identifier Shelf Expiration Date Model / Serial / Lot Screw [id number] Nail Rt [id number] 125 Degree - Sna - [id number] Implanted:Qty: 1 on 04/26/2025 by Gray Murillo MD at [facility] Internal and External Fixation Right: Hip [employer] [id number] 01/19/2029 [id number] 0S / NA / [id number] Screw Lag Ti Manisha 3 10.5x95mm Gamma 3 Nail System - Sna - [id number] Implanted:Qty: 1 on 04/26/2025 by Gray Murillo MD at [facility] Internal and External Fixation Right: Hip [employer] [id number] 02/19/2027 [id number] S / NA / [id number] Screw Lcking T2 Fthrd 5x52.5mm Ster - Sna - [id number] Implanted:Qty: 1 on 04/26/2025 by Gray Murillo MD at [facility] Internal and External Fixation Right: Hip [employer] [id number] 07/22/2027 [id number] S / NA / [id number] Procedures Procedure Name Priority Date/Time Associated Diagnosis [...] GEMUSE QTc 407 ms GEMUSE P Wave Hammond 86 degrees GEMUSE R Hammond 78 degrees GEMUSE T Hammond 81 degrees GEMUSE ECG Interpretation Sinus rhythm [...] NP ECG ORDERABLES Edited Result - Final GEMUSE * XR Femur 2+ Views Right (05/11/2025 10:40 AM EDT) Only the most recent of3 resultswithin the time period is included. Narrative RIS PACS/VR - 05/11/2025 10:40 AM EDT This order has been auto-finalized and does not contain a result. us Selam Urbina MD IMG XR PROCEDURES Final Result RIS PACS/VR * XR Abdomen 1 View (05/02/2025 8:50 AM EDT) Only the most recent of3 resultswithin the time period is included. Anatomical Region Laterality Modality Body Radiographic Brittani ging 05/04/2025 8:01 AM EDT Impressions 05/04/2025 8:03 AM EDT Diffuse colonic distention, mildly improved since 05/01/2025, likely representing resolving adynamic ileus. Code 62132 -------- FINAL REPORT -------- Dictated By: Gunner Goodson Dictated Date: 05/04/2025 08:01 ET Assigned Physician: Gunner Goodson Reviewed and Electronically Signed By: Gunner Goodson Signed Date: 05/04/2025 08:03 ET Workstation ID: [id number] Transcribed By: Self Edit Transcribed Date: 05/04/2025 [...] since 05/01/2025, likelyrepresenting resolving adynamic ileus. Code 60981 -------- FINAL REPORT -------- Dictated By: Gunner Goodson Dictated Date: 05/04/2025 08:01 ET Assigned Physician: Gunner Goodson Reviewed and Electronically Signed By: Gunner Goodson Signed Date: 05/04/2025 08:03 ET Workstation ID: [id number] Transcribed By: Self Edit Transcribed Date: 05/04/2025 08:01 ET Bernarda Huynh DO IMG XR PROCEDURES Final R esult * (ABNORMAL) CBC auto differential (05/02/2025 5:01 AM EDT) Only the most recent of8 resultswithin the time period is included. WBC 8.8 4.8 - 10.8 K/mcL [facility] RBC 2.90(L) 4.50 - 5.50 M/mcL LAB HEMETOLOGY METHOD 05/02/2025 6:33 AM EDT [facility] Hemoglobin 9.3(L) 13.5 - 17.5 g/dL LAB HEMETOLOGY METHOD 05/02/2025 6:33 AM [facility] Hematocrit 28.3(L) 42.0 - 54.0 % LAB HEMETOLOGY METHOD 05/02/2025 6:33 AM [facility] MCV 99.0(H) 79.0 - 98.0 FL LAB HEMETOLOGY METHOD 05/02/2025 6:33 AM EDT [facility] MCH 32.5(H) 27.0 - 32.0 pcg LAB HEMETOLOGY METHOD 05/02/2025 6:33 AM [facility] MCHC 32.9 32.0 - 37.0 g/dL LAB HEMETOLOGY METHOD 05/02/2025 6:33 AM [facility] RDW 12.7 11.0 - 15.0 % LAB HEMETOLOGY METHOD 05/02/2025 6:33 AM [facility] Platelets 432(H) 130 - 400 K/mcL LAB HEMETOLOGY METHOD 05/02/2025 6:33 AM [facility] MPV 9.3 7.0 - 11.0 FL LAB HEMETOLOGY METHOD 05/02/2025 6:33 AM [facility] NRBC 0.0 <1.0 % LAB HEMETOLOGY METHOD 05/02/2025 6:33 AM [facility] NRBC Absolute 0.00 <0.10 K/mcL LAB HEMETOLOGY METHOD 05/02/2025 6:33 AM [facility] Neutrophils Relative 66.7 % LAB HEMETOLOGY METHOD 05/02/2025 6:33 AM [facility] Comment:This is an appended report. These results have been appended to a previously preliminary verified report. Lymphocytes Relative 8.4 % LAB HEMETOLOGY METHOD 05/02/2025 6:33 AM [facility] Comment:This is an appended report. These results have been appended to a previously preliminary verified report. Monocytes Relative 19.2 % LAB HEMETOLOGY METHOD 05/02/2025 6:33 AM [facility] Comment:This is an appended report. These results have been appended to a previously preliminary verified report. Eosinophils Relative 4.0 % LAB HEMETOLOGY METHOD 05/02/2025 6:33 AM [facility] Comment:This is an appended report. These results have been appended to a previously preliminary verified report. Basophils Relative 0.6 % LAB HEMETOLOGY METHOD 05/02/2025 6:33 AM [facility] Comment:This is an appended report. These results have been appended to a previously preliminary verified report. Immature Granulocytes Relative 1.1 % LAB HEMETOLOGY METHOD 05/02/2025 6:33 AM [facility] Comment:This is an appended report. These results have been appended to a previously preliminary verified report. Neutrophils Absolute 5.90 1.50 - 7.00 K/mcL LAB HEMETOLOGY METHOD 05/02/2025 6:33 AM [facility] Comment:This is an appended report. These results have been appended to a previously preliminary verified report. Lymphocytes Absolute 0.74(L) 1.00 - 5.00 K/mcL LAB HEMETOLOGY METHOD 05/02/2025 6:33 AM [facility] Comment:This is an appended report. These results have been appended to a previously preliminary verified report. Monocytes Absolute 1.70(H) 0.20 - 1.00 K/mcL LAB HEMETOLOGY METHOD 05/02/2025 6:33 AM [facility] Comment:This is an appended report. These results have been appended to a previously preliminary verified report. Eosinophils Absolute 0.35 0.00 - 0.50 K/mcL LAB HEMETOLOGY METHOD 05/02/2025 6:33 AM [facility] Comment:This is an appended report. These results have been appended to a previously preliminary verified report. Basophils Absolute 0.05 0.00 - 0.20 K/mcL LAB HEMETOLOGY METHOD 05/02/2025 6:33 AM [facility] Comment:This is an appended report. These results have been appended to a previously preliminary verified report. Immature Granulocytes Absolute 0.10(H) 0.00 - 0.03 K/mcL LAB HEMETOLOGY METHOD 05/02/2025 6:33 AM T [facility] Comment:This is an appended report. These results have been appended to a previously preliminary verified report. Blood Venous blood specimen / Unknown Venipuncture / Unknown 05/02/2025 5:01 AM EDT 05/02/2025 5:43 AM EDT us Bernarda Huynh DO LAB BLOOD ORDERABLES Yoon l Result [facility] [address] [place] [address], [place] [phone] * (ABNORMAL) Comprehensive metabolic panel (05/02/2025 5:01 AM EDT) Only the most recent of4 resultswithin the time period is included. Sodium 130(L) 133 - 145 mmol/L LAB CHEMISTRY METHOD 05/02/2025 6:42 AM [facility] Potassium 4.3 3.5 - 5.5 mmol/L LAB CHEMISTRY METHOD 05/02/2025 6:42 AM [facility] Chloride 97 96 - 110 mmol/L LAB CHEMISTRY METHOD 05/02/2025 6:42 AM [facility] CO2 25 21 - 32 mmol/L LAB CHEMISTRY METHOD 05/02/2025 6:42 AM [facility] Anion Gap 8 3 - 11 LAB CHEMISTRY METHOD 05/02/2025 6:42 AM [facility] Glucose 86 70 - 100 mg/dL LAB CHEMISTRY METHOD 05/02/2025 6:42 AM [facility] BUN 11 5 - 25 mg/dL LAB CHEMISTRY METHOD 05/02/2025 6:42 AM [facility] Creatinine 0.66(L) 0.70 - 1.30 mg/dL LAB CHEMISTRY METHOD [facility] e[facility] 101 >=60 mL/min/1. 73m2 LAB CHEMISTRY METHOD 05/02/2025 6:42 AM [facility] Comment:Calculation based on the Chronic Kidney Disease Epidemiology Collaboration (CKD-EPI) equation refit without adjustment for race. BUN/Creatinine Ratio 16.7 LAB CHEMISTRY METHOD 05/02/2025 6:42 AM [facility] Calcium 8.3(L) 8.5 - 10.5 mg/dL LAB CHEMISTRY METHOD 05/02/2025 6:42 AM [facility] AST (SGOT) 20 10 - 42 unit/L LAB CHEMISTRY METHOD 05/02/2025 6:42 AM [facility] ALT (SGPT) 18 10 - 60 unit/L LAB CHEMISTRY METHOD 05/02/2025 6:42 AM [facility] Alkaline Phosphatase 74 42 - 121 unit/L LAB CHEMISTRY METHOD 05/02/2025 6:42 AM [facility] Total Protein 6.0 6.0 - 8.0 g/dL LAB CHEMISTRY METHOD 05/02/2025 6:42 AM [facility] Albumin 2.8(L) 3.2 - 5.0 g/dL LAB CHEMISTRY METHOD 05/02/2025 6:42 AM [facility] Total Bilirubin 0.5 0.0 - 1.4 mg/dL LAB CHEMISTRY METHOD 05/02/2025 6:42 AM [facility] Blood Venous blood specimen / Unknown Venipuncture / Unknown 05/02/2025 5:01 AM EDT 05/02/2025 5:43 AM EDT us Bernarda Huynh DO LAB BLOOD ORDERABLES Yoon l Result [facility] [address] [place] [address], * Lavender tube (04/30/2025 5:21 AM EDT) [facility] Extra Tube Hold for add-ons. 04/30/2025 7:01 AM [facility] Comment:Auto resulted. Blood Venous blood specimen / Unknown Venipuncture / Unknown 04/30/2025 5:21 AM EDT 04/30/2025 5:43 AM EDT us Bernarda Huynh DO LAB BLOOD ORDERABLES Yoon l Result [facility] [address] [place] [address], [place] [phone] * (ABNORMAL) Basic metabolic panel (04/30/2025 5:21 AM EDT) Only the most recent of8 resultswithin the time period is included. [facility] Sodium 128(L) 133 - 145 mmol/L LAB CHEMISTRY METHOD 04/30/2025 6:08 AM [facility] Potassium 3.8 3.5 - 5.5 mmol/L LAB CHEMISTRY METHOD 04/30/2025 6:08 AM [facility] Chloride 95(L) 96 - 110 mmol/L LAB CHEMISTRY METHOD 04/30/2025 6:08 AM [facility] CO2 26 21 - 32 mmol/L LAB CHEMISTRY METHOD 04/30/2025 6:08 AM [facility] Anion Gap 7 3 - 11 LAB CHEMISTRY METHOD 04/30/2025 6:08 AM [facility] Glucose 98 70 - 100 mg/dL LAB CHEMISTRY METHOD 04/30/2025 6:08 AM [facility] BUN 15 5 - 25 mg/dL LAB CHEMISTRY METHOD 04/30/2025 6:08 AM [facility] Creatinine 0.70 0.70 - 1.30 mg/dL LAB CHEMISTRY METHOD 04/30/2025 6:08 AM EDT [facility] eGFR 99 >=60 mL/min/1. 73m2 LAB CHEMISTRY METHOD 04/30/2025 6:08 AM EDT [facility] Comment:Calculation based on the Chronic Kidney Disease Epidemiology Collaboration (CKD-EPI) equation refit without adjustment for race. BUN/Creatinine Ratio 21.4 LAB CHEMISTRY METHOD 04/30/2025 6:08 AM T [facility] Calcium 8.2(L) 8.5 - 10.5 mg/dL LAB CHEMISTRY METHOD 04/30/2025 6:08 AM [facility] Blood Venous blood specimen / Unknown Venipuncture / Unknown 04/30/2025 5:21 AM EDT 04/30/2025 5:42 AM EDT Bernarda Huynh DO LAB BLOOD ORDERABLES Yoon l Result [facility] [address] [place] [address], [place] [phone] * (ABNORMAL) Complete blood count (04/28/2025 6:24 AM EDT) WBC 10.8 4.8 - 10.8 K/mcL LAB HEMETOLOGY METHOD 04/28/2025 6:49 AM T [facility] RBC 3.00(L) 4.50 - 5.50 M/mcL LAB HEMETOLOGY METHOD 04/28/2025 6:49 AM T [facility] Hemoglobin 9.7(L) 13.5 - 17.5 g/dL LAB HEMETOLOGY METHOD 04/28/2025 6:49 AM [facility] Hematocrit 29.2(L) 42.0 - 54.0 % LAB HEMETOLOGY METHOD 04/28/2025 6:49 AM EDT [facility] MCV 97.3 79.0 - 98.0 FL LAB HEMETOLOGY METHOD 04/28/2025 6:49 AM EDT [facility] MCH 32.3(H) 27.0 - 32.0 pcg LAB HEMETOLOGY METHOD 04/28/2025 6:49 AM EDT [facility] MCHC 33.2 32.0 - 37.0 g/dL LAB HEMETOLOGY METHOD 04/28/2025 6:49 AM EDT [facility] RDW 13.1 11.0 - 15.0 % LAB HEMETOLOGY METHOD 04/28/2025 6:49 AM EDT [facility] Platelets 295 130 - 400 K/mcL LAB HEMETOLOGY METHOD 04/28/2025 6:49 AM EDT [facility] MPV 9.5 7.0 - 11.0 FL LAB HEMETOLOGY METHOD 04/28/2025 6:49 AM EDT [facility] NRBC 0.0 <1.0 % LAB HEMETOLOGY METHOD 04/28/2025 6:49 AM EDT [facility] NRBC Absolute 0.00 <0.10 K/mcL LAB HEMETOLOGY METHOD 04/28/2025 6:49 AM EDT [facility] Blood Venous blood specimen / Unknown Venipuncture / Unknown 04/28/2025 6:24 AM EDT 04/28/2025 6:41 AM EDT us Valentin Teixeira MD LAB BLOOD ORDERABLE S Final Result [facility] [address] [place] [address], * Phosphorus (04/28/2025 6:24 AM EDT) [facility] Signature Phosphorus 2.5 2.5 - 4.5 mg/dL LAB CHEMISTRY METHOD 04/28/2025 7:30 AM EDT [facility] Blood Venous blood specimen / Unknown Venipuncture / Unknown 04/28/2025 6:24 AM EDT 04/28/2025 6:41 AM EDT us Valentin Teixeira MD LAB BLOOD ORDERABLE S Final Result Performing Organization Address City/[facility]/ZIP Co de Phone Number [facility] [address] [place] [address], [place] [phone] * Magnesium (04/28/2025 6:24 AM EDT) Only the most recent of5 resultswithin the time period is included. [facility] Magnesium 2.1 1.9 - 2.6 mg/dL LAB CHEMISTRY METHOD 04/28/2025 7:23 AM EDT [facility] Blood Venous blood specimen / Unknown Venipuncture / Unknown 04/28/2025 6:24 AM EDT 04/28/2025 6:41 AM EDT us Valentin Teixeira MD LAB BLOOD ORDERABLE S Final Result Performing Organization Address City/[facility]/ZIP Co de Phone Number [facility] [address] [place] [address], [place] [phone] * (ABNORMAL) Manual differential (04/27/2025 6:13 AM EDT) [facility] Neutrophils % 87.0 % LAB HEMETOLOGY METHOD 04/27/2025 7:13 AM EDT [facility] Lymphocytes % 4.0 % LAB HEMETOLOGY METHOD 04/27/2025 7:13 AM EDT [facility] Monocytes % 8.0 % LAB HEMETOLOGY METHOD 04/27/2025 7:13 AM EDT [facility] Eosinophils % 2.0 % LAB HEMETOLOGY METHOD 04/27/2025 7:13 AM EDT [facility] Basophils % 0.0 % LAB HEMETOLOGY METHOD 04/27/2025 7:13 AM EDT [facility] Neutrophils Absolute Manual 10.96(H) 1.50 - 7.00 K/[facility] LAB HEMETOLOGY METHOD 04/27/2025 7:13 AM EDT [facility] Lymphocytes Absolute 0.50(L) 1.00 - 5.00 K/[facility] LAB HEMETOLOGY METHOD 04/27/2025 7:13 AM EDT [facility] Monocytes Absolute Manual 1.01(H) 0.20 - 1.00 K/[facility] LAB HEMETOLOGY METHOD 04/27/2025 7:13 AM EDT [facility] Eosinophils Absolute Manual 0.25 0.00 - 0.50 K/mcL LAB HEMETOLOGY METHOD 04/27/2025 7:13 AM EDT [facility] Basophils Absolute Manual 0.00 0.00 - 0.20 K/[facility] LAB HEMETOLOGY METHOD 04/27/2025 7:13 AM EDT [facility] Blood Venous blood specimen / Unknown Venipuncture / Unknown 04/27/2025 6:13 AM EDT 04/27/2025 6:24 AM EDT us Estate Mario CINTRON LAB BLOOD ORDERABLES Final R esult [facility] [address] [place] [address], * XR Hip 2-3 Views Right (04/26/2025 [...] Signed Date: 04/28/2025 08:16 ET Workstation ID: [id number] Transcribed By: Self Edit Transcribed Date: 04/28/2025 08:14 ET Narrative 04/28/2025 8:16 AM EDT HISTORY: The patient is a 69-year-old male with an intertrochanteric fracture of the right femur. FINDINGS: 3 fluoroscopic spot radiographs of the right femur obtained in the operating room are submitted. The study documents placement of a compression screw and intramedullary fixation criss transfixing the intertrochanteric fracture of the femur [...] Signed Date: 04/28/2025 08:16 ET Workstation ID: [id number] Transcribed By: Self Edit Transcribed Date: 04/28/2025 08:14 ET us Gray Murillo MD IMG XR PROCEDURES Final R esult * TH AN LMA(NO CHARGE) (04/26/2025 9:02 AM EDT) Narrative Lanette Nazario CRNA - 04/26/2025 9:02 AM EDT Lanette Nazario CRNA 04/26/2025 9:03 AM General Information and Staff Patient location during procedure: OR Resident/MANAGER TRAFFIC: Lanette Nazario CRNA Performed: resident/AMELIA/CAA Performed by: Lanette Nazario CRNA Authorized by: [...] with indices Consistent with indices, Normal for [place] LAB HEMETOLOGY METHOD 04/26/2025 7:40 AM EDT [facility] Platelet Morphology - WAM See Note(A) Normal LAB HEMETOLOGY METHOD 04/26/2025 7:40 AM EDT [facility] Comment:PLT: Normal Blood Venous blood specimen / Unknown Venipuncture / Unknown 04/26/2025 6:32 AM EDT 04/26/2025 6:46 AM EDT Franco Martin MD LAB BLOOD ORDERABLES Final R esult [facility] [address] [place] [address], * Triiodothyronine free (04/26/2025 6:32 AM EDT) T3, Free 277 230 - 420 pcg/dL LAB CHEMISTRY METHOD 04/26/2025 11:50 AM EDT [facility] Blood Venous blood specimen / Unknown Venipuncture / Unknown 04/26/2025 6:32 AM EDT 04/26/2025 6:45 AM EDT us Franco Martin MD LAB BLOOD ORDERABLES Final R esult Performing Organization Address City/[facility]/ZIP Co de Phone Number [facility] [address] [place] [address], * Thyroxine free (04/26/2025 6:32 AM EDT) Free T4 1.36 0.70 - 1.80 ng/dL LAB CHEMISTRY METHOD 04/26/2025 11:45 AM EDT [facility] Blood Venous blood specimen / Unknown Venipuncture / Unknown 04/26/2025 6:32 AM EDT 04/26/2025 6:45 AM EDT us Franco Martin MD LAB BLOOD ORDERABLES Final R esult [facility] [address] [place] [address], * (ABNORMAL) Thyroid stimulating hormone (04/25/2025 6:12 AM EDT) TSH 7.83(H) 0.40 - 4.00 mcIU/mL LAB CHEMISTRY METHOD 04/25/2025 1:46 PM EDT [facility] Blood Venous blood specimen / Unknown Venipuncture / Unknown 04/25/2025 6:12 AM EDT 04/25/2025 6:42 AM EDT us Franco Martin MD LAB BLOOD ORDERABLES Final R esult Performing Organization Address [facility]/ZIP Co de Phone Number [facility] [address] [place] [address], [place] [phone] * (ABNORMAL) POCT Glucose, blood (04/24/2025 11:25 AM EDT) Glucose POCT 112(H) 70 - 100 mg/dL 04/24/2025 11:25 AM EDT [facility] Blood Capillary blood specimen / Unknown 04/24/2025 11:25 AM EDT 04/24/2025 11:27 AM EDT us Franco Martin MD LAB POINT OF CARE TE ST DOCKED DEVICE UNSOLICITED RESULTS Final Result Performing Organization Address [facility] de Phone Number [facility] [address] [place] [address], [place] [phone] * (ABNORMAL) TRANSTHORACIC ECHOCARDIOGRAM (TTE) COMPLETE W/ CONTRAST (04/24/2025 9:40 AM EDT) Aortic Sinus Valsalva 3.7 cm CV PACS [...] Area 3.5 cm2 CV PACS MV Deceleration [place]plin 2.9 m/s2 CV PACS E Wave Deceleration [...] 8a panel, urine (04/24/2025 12:34 AM EDT) Pathologist [facility] Amphetamine Screen, Ur Negative Negative LAB CHEMISTRY METHOD 1:18 AM [facility] Comment:Certain OTC medicati ons containing ephedrine, phenylephrine, pseudoephedrine and phenylpropanolamine can cause false positive results. Barbiturate Screen, Ur Negative Negative LAB CHEMISTRY METHOD 1:18 AM [facility] Benzodiazepine Screen, Ur Negative Negative LAB CHEMISTRY METHOD 1:18 AM [facility] Cocaine Screen, Ur Negative Negative LAB CHEMISTRY METHOD 1:18 AM [facility] Opiate Screen, Ur Positive(A ) Negative LAB CHEMISTRY METHOD 1:18 AM [facility] Cannabinoid (THC) Screen, Ur Positive(A ) Negative LAB CHEMISTRY METHOD 1:18 AM [facility] Comment:Specimens from patie nts taking pantoprazole sodium (Protonix) have been shown to produce false positive results. Oxycodone Screen, Ur Negative Negative LAB CHEMISTRY METHOD 1:18 AM [facility] Fentanyl, Ur Negative Negative LAB CHEMISTRY METHOD 1:18 AM [facility] Urine Urine specimen obtained by clean catch procedure / Unknown Non-blood Collection / Unknown 04/24/2025 12:34 AM EDT 04/24/2025 12:48 AM EDT Narrative [facility] - 04/24/2025 1:18 AM EDT Assay [...] ORDERABLES Final Re sult Performing Organization Address City/[facility]/ZIP Co de Phone Number [facility] [address] [place] [address], [place] [phone] * Sodium, urine, random (04/24/2025 12:34 AM EDT) Sodium, Ur 22 mmol/L LAB CHEMISTRY METHOD 04/24/2025 1:23 AM EDT [facility] Urine Urine specimen from urethra / Unknown Non-blood Collection / Unknown 04/24/2025 12:34 AM EDT 04/24/2025 12:48 AM EDT [facility] URINE ORDERABLES Final Re sult [facility] [address] [place] [address], [place] [phone] * Osmolality, urine (04/24/2025 12:34 AM EDT) Osmolality, Urine 500 300 - 1,300 mOsm/kg LAB CHEMISTRY METHOD 04/24/2025 2:58 AM EDT [facility] Urine Urine specimen obtained by clean catch procedure / Unknown Non-blood Collection / Unknown 04/24/2025 12:34 AM EDT 04/24/2025 12:48 AM EDT us P[facility] URINE ORDERABLES Final Re sult Performing Organization Address City/[facility]/ZIP Co de Phone Number [facility] [address] [place] [address], [place] [phone] * ECG-Annotated (04/24/2025) us Provider Onbase MD ECG ORDERABLES Final Result * Type and screen (04/23/2025 10:55 PM EDT) ABO Group B 04/23/2025 11:57 PM EDT [facility] Rh Type Positive 04/23/2025 11:57 PM EDT [facility] Antibody Screen Negative 04/23/2025 11:57 PM EDT [facility] Blood Venous blood specimen / Unknown Venipuncture / Unknown 04/23/2025 10:55 PM EDT 04/23/2025 10:57 PM EDT Derick Pace MD LAB BLOOD BANK TEST ORDER YOON Final Result Performing Organization Address [facility]/ZIP Co de Phone Number [facility] [address] [place] [address], [place] [phone] * CT Pelvis wo Contrast (04/23/2025 7:50 [...] and culture (04/23/2025 7:36 PM EDT) Specific [place] Urine 1.014 1.003 - 1.030 LAB URINALYSIS - AUTOMATED METHOD 04/23/2025 8:11 PM [facility] pH, Urine 6.0 5.0 - 8.0 pH LAB URINALYSIS - AUTOMATED METHOD 04/23/2025 8:11 PM [facility] Leukocytes, Urine Negative Negative LAB URINALYSIS - AUTOMATED METHOD 04/23/2025 8:11 PM [facility] Nitrite, Urine Negative Negative LAB URINALYSIS - AUTOMATED METHOD 04/23/2025 8:11 PM [facility] Protein, Urine Negative <=Trace mg/dL LAB URINALYSIS - AUTOMATED METHOD 04/23/2025 8:11 PM [facility] Glucose, Urine Negative Negative mg/dL LAB URINALYSIS - AUTOMATED METHOD 04/23/2025 8:11 PM [facility] Ketones, Urine Negative Negative mg/dL LAB URINALYSIS - AUTOMATED METHOD 04/23/2025 8:11 PM [facility] Urobilinogen, Urine 0.2 0.2 - 1.0 mg/dL LAB URINALYSIS - AUTOMATED METHOD 04/23/2025 8:11 PM T [facility] Bilirubin, Urine Negative Negative LAB URINALYSIS - AUTOMATED METHOD [facility] Blood, Urine Trace(A) Negative LAB URINALYSIS - AUTOMATED METHOD 04/23/2025 8:11 PM [facility] RBC, Urine 0.5 0 - 4 /HPF LAB URINALYSIS - AUTOMATED METHOD 04/23/2025 8:11 PM [facility] WBC, Urine 0.4 0 - 4 /HPF LAB URINALYSIS - AUTOMATED METHOD 04/23/2025 8:11 PM [facility] Squamous Epithelial, Urine 11 0 - 60 /LPF LAB URINALYSIS - AUTOMATED METHOD 04/23/2025 8:11 PM [facility] Bacteria, Urine Negative Negative /HPF LAB URINALYSIS - AUTOMATED METHOD 04/23/2025 8:11 PM [facility] Hyaline Casts, Urine 0.0 0 - 3 /LPF LAB URINALYSIS - AUTOMATED METHOD 04/23/2025 8:11 PM [facility] Urine Urine specimen obtained by clean catch procedure / Unknown Non-blood Collection / Unknown 04/23/2025 7:36 PM EDT 04/23/2025 7:46 PM EDT us Mariza Law MD LAB URINE ORDERABLES Final Resul t [facility] [address] [place] [address], * Dailey urine culture tube (04/23/2025 7:36 PM EDT) Extra Tube Hold for add-ons. 04/23/2025 9:01 PM EDT [facility] Comment:Auto resulted. Urine Urine specimen obtained by clean catch procedure / Unknown Non-blood Collection / Unknown 04/23/2025 7:36 PM EDT 04/23/2025 7:46 PM EDT us Mariza Law MD LAB URINE ORDERABLES Final Resul t [facility] [address] [place] [address], [place] [phone] * XR Pelvis 1-2 Views (04/23/2025 7:06 PM EDT) Anatomical Region Laterality Modality Body, Pelvis Radiographic Brittani ging 04/24/2025 8:25 AM EDT Impressions 04/24/2025 8:26 AM EDT Displaced intertrochanteric right femoral fracture. -------- FINAL REPORT -------- Dictated By: Iván Guerra Dictated Date: 04/24/2025 08:25 ET Assigned Physician: Iván Guerra Reviewed and Electronically Signed By: Iván Guerra Signed Date: 04/24/2025 08:26 ET Workstation ID: [id number] Transcribed By: Self Edit Transcribed Date: 04/24/2025 [...] Signed Date: 04/24/2025 08:26 ET Workstation ID: [id number] Transcribed By: Self Edit Transcribed Date: 04/24/2025 [...] RASHAUN GODOY Reviewed and Electronically Signed By: RASHANU GODOY Signed Date: 04/24/2025 08:23 ET Workstation ID: [id number] Transcribed By: Self Edit Transcribed Date: 04/24/2025 [...] Signed Date: 04/24/2025 08:23 ET Workstation ID: [id number] Transcribed By: Self Edit Transcribed Date: 04/24/2025 08:23 ET us Mariza Law MD IMG XR PROCEDURES Final Result * XR Knee 1-2 Views Right (04/23/2025 7:06 PM EDT) Anatomical Region Laterality Modality Lower Extremities, Knee Right Radiogra phic Imaging 04/23/2025 8:32 PM EDT Impressions 04/23/2025 [...] Signed Date: 04/23/2025 16:40 ET Workstation ID: [id number] Transcribed By: Self Edit Transcribed Date: 04/23/2025 [...] Signed Date: 04/23/2025 16:40 ET Workstation ID: [id number] Transcribed By: Self Edit Transcribed Date: 04/23/2025 16:38 ET Mariza Law MD IMG CT PROCEDURES Final Result * CT Head [...] Signed Date: 04/23/2025 16:38 ET Workstation ID: [id number] Transcribed By: Self Edit Transcribed Date: 04/23/2025 [...] Signed Date: 04/23/2025 16:38 ET Workstation ID: [id number] Transcribed By: Self Edit Transcribed Date: 04/23/2025 16:36 ET us Mariza Law MD IMG CT PROCEDURES Final Result * Troponin I high sensitivity (04/23/2025 4:00 PM EDT) Only the most recent of2 resultswithin the time period is included. [facility] High Sensitivity Troponin I 6 <=79 ng/L LAB CHEMISTRY METHOD 04/23/2025 4:35 PM EDT [facility] Blood Venous blood specimen / Unknown Venipuncture / Unknown 04/23/2025 4:00 PM EDT 04/23/2025 4:10 PM EDT Narrative [facility] - 04/23/2025 4:35 PM EDT High levels of biotin in samples may falsely decrease hsTroponin values. Use caution when interpreting hsTroponin results in patients taking biotin who exhibit renal impairment (eGFR <60) or in patients taking more than 20 mg/day of biotin. us Mariza Law MD LAB BLOOD ORDERABLES Final Resul t [facility] [address] [place] [address], * (ABNORMAL) Osmolality (04/23/2025 4:00 PM EDT) [facility] Osmolality Ami 277(L) 280 - 300 mOsm/kg LAB CHEMISTRY METHOD 04/23/2025 10:44 PM EDT [facility] Blood Venous blood specimen / Unknown Venipuncture / Unknown 04/23/2025 4:00 PM EDT 04/23/2025 4:10 PM EDT [facility] LAB BLOOD ORDERABLES Final Re sult Performing Organization Address [facility] Co de Phone Number [facility] [address] [place] [address], [place] [phone] * Ethanol (04/23/2025 4:00 PM EDT) Ethanol Level <3 0 - 10 mg/dL LAB CHEMISTRY METHOD 04/24/2025 12:55 AM EDT [facility] Blood Venous blood specimen / Unknown Venipuncture / Unknown 04/23/2025 4:00 PM EDT 04/23/2025 4:10 PM EDT [facility] LAB BLOOD ORDERABLES Final Re sult Performing Organization Address [facility] de Phone Number [facility] [address] [place] [address], [place] [phone] * APTT (04/23/2025 2:45 PM EDT) aPTT 35.9 24.1 - 39.3 sec LAB COAGULATION METHOD 04/23/2025 3:19 PM EDT [facility] Blood Venous blood specimen / Unknown Venipuncture / Unknown 04/23/2025 2:45 PM EDT 04/23/2025 2:59 PM EDT Mariza Law MD LAB BLOOD ORDERABLES Final Resul t Performing Organization Address [facility] Co de Phone Number [facility] [address] [place] [address], [place] [phone] * Protime-INR (04/23/2025 2:45 PM EDT) Protime 12.8 10.6 - 13.9 sec LAB COAGULATION METHOD 04/23/2025 3:19 PM EDT [facility] INR 1.0 LAB COAGULATION METHOD 04/23/2025 3:19 PM EDT [facility] Blood Venous blood specimen / Unknown Venipuncture / Unknown 04/23/2025 2:45 PM EDT 04/23/2025 2:59 PM EDT us Mariza Law MD LAB BLOOD ORDERABLES Final Resul t Performing Organization Address [facility] Co de Phone Number [facility] [address] [place] [address], [place] [phone] * Creatine kinase (04/23/2025 2:45 PM EDT) Total CK 184 22 - 269 unit/L LAB CHEMISTRY METHOD 04/23/2025 3:31 PM EDT [facility] Blood Venous blood specimen / Unknown Venipuncture / Unknown 04/23/2025 2:45 PM EDT 04/23/2025 2:59 PM EDT us Mariza Law MD LAB BLOOD ORDERABLES Final Resul t Performing Organization Address [facility] de Phone Number [facility] [address] [place] [address], [place] [phone] * SPECIMEN STATUS REPORT (04/14/2025 11:52 AM EDT) Specimen Status Report Comment [facility] 1 Comment: Ambig Abbrev BMP8 Default Ambig Abbrev BMP8 Default A hand-written panel/profile was received from your office. In accordance with the [facility] Ambiguous Test Code Policy dated January 2003, we have completed your order by using the closest currently or formerly recognized AMA panel. We have assigned Basic Metabolic Panel (8), Test Code #717076 to this request. If this is not the testing you wished to receive on this specimen, please contact the [facility] Client Inquiry/Technical Services Department to clarify the test order. We appreciate your business. 04/14/2025 11:5 2 AM EDT 04/14/2025 Narrative [facility] - 04/15/2025 4:06 AM EDT Performed at: [address] [facility] [address] [id number] Parboiler: Hoa Green MD, Phone: [phone] Krista Ham MD LAB BLOOD ORDERABLES Final Res ult [facility] 1 * (ABNORMAL) Lipid panel with direct LDL (04/14/2025 11:52 AM EDT) [facility] Cholesterol Total 194 100 - 199 mg/dL [...] - 04/15/2025 8:08 AM EDT Performed at: [facility] [address] [id number] Parboiler: Hoa Green MD, Phone: [phone] Krista Ham MD LAB BLOOD ORDERABLES Final Res ult [facility] 1 from Last 3 Months Additional Health Concerns Active Problems Noted Date Diagnosed Date Autogenerated Problem 04/24/2025 Insurance MEDICARE MEDICAID [facility] Advance Directives Documents on File Type Date Recorded Patient Lunch Cook Expl anation Advance Directives and Living Will [...] currently active code status orders. Care Teams Project Drilling Engineer Relationship Specialty Start Date End Date Jj Burks MD [address] [place] [phone] PCP - General Family Medicine 05/06/25
--- OUTSIDE RECORDS SUMMARY | 2025-06-23 11:12 | XMS_ITS ---
Author Name [place] Organization Unknown Encounters Encounter Type Encounter Reason Primary Diagnosis Location Date Ambulatory [facility] 05/20/2024 Care Team Organization Name Specialty Phone Email Start Date End Da te [facility] 11/16/2024 [facility] NULL Primary Care 02/07/2024 09/04/2024 [facility] NULL Primary Care 07/31/2022 09/04/2024 [facility] Termed, PROVIDER Primary Care 05/30/202208/23
== END 2025-06-23 10:22 | disposition home or self-care (01) ==
LOC: HO.HMCFMS 09:58
PROVIDERS: PCP Student in an Organized Health Care Education/Training Program; Visit Provider Student in an Organized Health Care Education/Training Program
DX: D64.9 Anemia, unspecified (principal); R79.89 Other specified abnormal findings of blood chemistry; R76.89 Other specified abnormal immunological findings in serum; Z23 Encounter for immunization

== ENCOUNTER 2025-07-09 14:40 | Outpatient (AMB) | payer MEDICARE, MEDICAID, SELFPAY ==
--- NOTE | 2025-07-09 14:44 | A.OFFPC_ITS ---
Vital Signs 07/09/25 14:48 Height 5 ft 7.72 in Weight 140 lb 8 oz BMI 21.5 BP 119/57 L Blood Pressure Location Rt brachial Position Sitting Pulse 57 Pulse Source Pulse Oximeter Temp 97.6 F Temp Source Oral Pulse Oximetry (%) 96 Oxygen Delivery Method Room Air Intake Visit Reasons: Discuss labs Accompanied by: Health Care Proxy Allergies No Known Allergies Allergy (Verified 07/09/25 14:48) Medication List - Last Reconciled 07/11/25 by Jj Burks MD acetaminophen 1,000 mg PO Q8H ammonium lactate 5% (Lac-Hydrin Five) 1 appl topical BID apixaban (Eliquis) 5 mg PO BID ascorbic acid (vitamin C) 500 mg PO DAILY ergocalciferol (vitamin D2) 1,250 mcg PO QWEEK ferrous sulfate 325 mg PO DAILY losartan 25 mg PO DAILY mecobalamin (vitamin B12) 1,000 mcg sublingual BEDTIME metoprolol succinate ER 75 mg PO DAILY polyethylene glycol 3350 (Gavilax) 17 grams PO DAILY rosuvastatin 5 mg PO DAILY spironolactone 25 mg PO DAILY Tobacco use date assessed: 07/09/25 Fall risk assessment: 1 Fall in past year Last assessed Fall Risk: 07/09/25 Dental Screening Dental Screen Date: 07/09/25 HPI HPI Comments History of Present Illness Details History of Present Illness The patient is a 69 year old male presenting for discussion of recent lab results and pre-procedural medication management. Hepatitis C: The patient was found to have a positive hepatitis C antibody on a screening test. A subsequent viral load test was performed and came back very high, confirming an active hepatitis C infection. He was unaware of this diagnosis prior to this visit and reports feeling well, denying symptoms such as jaundice or abdominal pain. His brother has a history of hepatitis C. Colon Cancer Screening: The patient has a colonoscopy scheduled for August 30 and presented with paperwork regarding medication adjustments needed before the procedure. Medications: - Acetaminophen - Ammonium lactate - Apixaban (Eliquis) - Ascorbic acid - Vitamin D - Iron - Losartan - Vitamin B12 - Metoprolol Social History: - The patient's sister accompanied him t o the visit and is his healthcare proxy. Family History: - Brother: History of hepatitis C. Diagnostic Results: - Hepatitis C antibody: Positive. - Hepatitis C viral load: Very high. Past Medical History - History requiring anticoagulation with apixaban. Health Maintenance - Hepatitis C screening was performed, r evealing an active infection. - Colon cancer screening via colonoscopy is scheduled for August 30. [facility] Medical History Hepatitis C Low vitamin D level Low vitamin B12 level Anemia Hepatitis C antibody positive Xerosis cutis Nicotine dependence Congestive heart failure Chronic lower back pain Femur fracture, right Family History Father No problems noted. Mother No problems noted. Social History Housing: House Patient Tobacco Use Status: Current everyday Tobacco user Cigarettes Per Day: 5 e-Cigarette/Vaping Use: Never Used service: No Current occupational status: retired Cognitive needs: Yes (walker) Hearing needs: No Vision needs: Yes (reading glasses) Questionnaire PHQ-9 Over the last 2 weeks, how often have you been bothered by any of the following problems? 1. Little interest or pleasure in doing things: not at all 2. Feeling down, depressed, or hopeless: not at all 3. Trouble falling or staying asleep, or sleeping too much: not at all 4. Feeling tired or having little energy: not at all 5. Poor appetite or overeating: not at all 6. Feeling bad about yourself - or that you are a failure or have let yourself or your family down: not at all 7. Trouble concentrating on things, such as reading the newspaper or watching television: not at all 8. Moving or speaking so slowly that other people could have noticed. Or the o pposite - being so fidgety or restless that you have been moving around a lot more than usual: not at all 9. Thoughts that you would be better off or of hurting yourself in some way: not at all Total score: 0 Depression Screening Interpretation: Negative Depression Screening Done: Yes Source: Developed by Drs. Tonio Murphy, Liya Borges, Yazan Portillo and colleagues, with an educational esteban from [employer] Thrive Questionnaire Date Thrive assessed: 07/09/25 I am a: Parent/Caregiver What is your living situation today?: I have a steady place to live Within the past 12 months, did the food you bought not last and you didn't have the money to get more?: Sometimes True Within the past 12 months, did you worry whether your food would run out before you got money to buy more?: Sometimes True Do you have trouble paying for medicines?: No Do you have trouble getting transportation to medical appointments?: No Do you have trouble paying your heating and electricity bill?: No Do you have trouble taking care of your child, family member or friend?: No Are you currently unemployed and looking for a job?: No Are you interested in more education?: No Currently or been in a relationship where the following occur: No concerns reported THRIVE Score: 2 AUDIT C Alcohol Use Questionnaire (AUDIT-C) 1. How often do you have a drink containing alcohol?: Monthly or less 2. How many drinks containing alcohol do you have on a typical day when you are drinking?: 1 or 2 Total Score: 1 DANIELLE-7 AMB Questionnaire DANIELLE-7 Date DANIELLE - 7 assessed: 07/09/25 Feeling nervous, anxious, or on edge: 0 = Not at all Not being able to stop or control worryin = Not at all Worrying too much about different things: 0 = Not at all Trouble relaxin = Not at all Being so restless that it is hard to sit still: 0 = Not at all Becoming easily annoyed or irritable: 0 = Not at all Feeling afraid as if something awful might happen: 0 = Not at all Total DANIELLE-7 score (0-4 normal; 5-9 mild; 10-14 moderate; 15-21 severe): 0 Source: Developed by Drs. Tonio Murphy, Liya Borges, Yazan Portillo and colleagues, with an educational esteban from [employer] Review of Systems Narrative Review of Systems - Constitutional: Reports feeling pretty good. - Denies symptoms such as jaundice or abdominal pain. 10-point ROS reviewed and negative except as noted in HPI Physical exam (Primary Care) Vital Signs: Last Vital Signs Temp 97.6 F 07/09/25 14:48 Pulse 57 07/09/25 14:48 BP 119/57 L 07/09/25 14:48 Pulse Ox 96 07/09/25 14:48 Oxygen Delivery Method Room Air 07/09/25 14:48 BMI result Body Mass Index 21.5 Tobacco/Smoking Status: Tobacco use Status Tobacco use date assessed 07/09/25 07/09/25 14:50 Patient Tobacco Use Status Current everyday Tobacco 07/09/25 14:45 e-Cigarette/Vaping Use Never Used 07/09/25 14:50 PHQ-9: PHQ-9 Score PHQ-9: Total score 0 07/10/25 07:17 Depression Screening Interpretation: Negative Thrive Assessment: Date of Thrive Assessment Date Thrive assessed 07/09/25 07/09/25 14:50 Currently or been in a relationship where the following occur: No concerns repor carter Narrative Physical Exam General: Well-appearing, in no acute distress. Vital signs: Within normal limits. HEENT: Normocephalic, atraumatic. PERRLA, EOMI. Conjunctiva clear, sclera anicteric. Oropharynx clear, mucous membranes moist. TMs intact bilaterally. Neck: Supple, no lymphadenopathy, no thyromegaly, no JVD or carotid bruits. Cardiovascular: RRR, normal S1/S2, no murmurs, rubs, or gallops. Peripheral pulses 2+ and symmetric. No edema. Respiratory: Lungs clear to auscultation bilaterally, no wheezes, rales, or rhonchi. Normal effort. Abdomen: Soft, non-tender, non-distended. Normoactive bowel sounds. No hepatosplenomegaly, no masses. MSK: Full range of motion, no joint swelling or deformity. Normal gait. Skin: Warm, dry, intact. No rashes, lesions, or pallor. Neuro: Alert and oriented x3. Cranial nerves II-XII intact. Strength 5/5 throughout. Sensation intact. Reflexes 2+ symmetric. Normal coordination and gait. Psych: Appropriate mood and affect. Normal judgment and insight. Office Procedures Flu Questionnaire Does the patient have a severe egg allergy?: No Does the patient have severe life threatening allergies?: No Does the patient have a fever or illness today?: No Has the patient ever had Guillain-Paris Syndrome?: No Has the patient ever had any past reaction to a flu shot?: No Immunizations Fluarix [id number] (PF) 45 mcg (15 mcg x 3)/0.5 mL IM syringe Performing Provider: Jj Burks MD Performing Location: [facility] [place] [facility] Documented (not given) by: Meena Siegel CMA on 07/09/25 14:59 Reason Not Given: Received Previously Coding Level of Care Code Est Pt Level 3 (92819) Add On Problem Visit Only Diagnoses Hepatitis C B19.20 Hepatitis C antibody positive R76.89 Assessment & Plan Assessment & Plan (1) Hepatitis C: Code(s): B19.20 - Unspecified viral hepatitis C without hepatic coma Category: Medical (2) Hepatitis C antibody positive: Code(s): R76.89 - Other specified abnormal immunological findings in serum Category: Medical Plan Consent Patient was informed and verbally consented to the use of an ambient scribe for clinic note documentation during this visit. Plan 1. Active Hepatitis C Infection - The patient was informed of his new diagnosis of active hepatitis C infection. - A referral will be placed to Infectious Disease for evaluation and initiation of treatment. - A referral will also be placed to Gastroenterology for liver evaluation. 2. Colon Cancer Screening - The patient was advised to stop taking apixaban (Eliquis) 7 days prior to his upcoming colonoscopy due to bleeding risk. - He was instructed to continue all other current medications, including ascorbic acid, vitamin D, iron, losartan, vitamin B12, and metoprolol. - The patient was counseled that the guest services officer may decide to postpone the colonoscopy until after the hepatitis C has been treated. 3. Follow-Up - Recommended follow-up in September. Discussion Notes I informed the patient that his screening hepatitis C antibody test was positive, and a subsequent viral load came back very high, confirming a new diagnosis of an active hepatitis C infection. I explained that this is often a silent disease and the importance of screening for early detection. We discussed the plan, which includes referrals to both an Infectious Disease specialist for treatment and a Captain Waiter/Waitress for liver evaluation. Regarding his upcoming colonoscopy, I advised him to stop his apixaban (Eliquis) seven days prior to the procedure to minimize bleeding risk. I counseled him that the performing specialist might choose to postpone the colonoscopy until the hepatitis C is treated. His sister, who is his healthcare proxy, was present for the discussion, and the patient verbalized understanding of the plan. Patient Instructions - Your recent lab work shows that you have an active hepatitis C infection. - We are referring you to an Infectious Disease specialist and a Captain Waiter/Waitress (liver specialist) for further care, and their offices will call you to schedule appointments. - For your colonoscopy scheduled on August 30, you must stop taking your Eliquis (apixaban) 7 days before the procedure. - You may continue taking all of your other medications as prescribed. - The doctor performing your colonoscopy may decide to postpone the procedure until your hepatitis C has been treated. - Please schedule a follow-up visit to see me in September. Medical Decision Making The patient is a 69-year-old male who presented for a review of lab results. A routine hepatitis C screening yielded a positive antibody, and a subsequent HCV viral load test returned very high, confirming a diagnosis of active chronic hepatitis C infection. The patient is asymptomatic, which is a common presentation for this condition, underscoring the value of guideline-based screening. A multidisciplinary approach is optimal for management; therefore, I have initiated referrals to both Infectious Disease for antiviral treatment and Gastroenterology for comprehensive liver assessment. Regarding his upcoming colonoscopy, the patient's use of apixaban presents a significant bleeding risk. I advised him to hold the apixaban for seven days p re-procedure, in line with standard protocols. I also counseled him that the endoscopist may elect to defer the procedure pending treatment of his hepatitis C, which is a reasonable course of action to ensure patient safety. Follow-up will be in September to monitor his progress with the specialist referrals. Total Time Statement 20 min Total time spent caring for the patient today includes pre-visit chart review, documentation, review of laboratory and diagnostic imaging results, medication reconciliation, medically necessary evaluation, counseling on diagnoses, care coordination, ordering appropriate tests and medications, review of tests performed by other providers, reporting test results to the patient, and communication with other healthcare providers. Orders: Orders Influenza [id number] Immunization 07/09/25 Z23 - Encounter for immunization Referrals Infectious Disease Referral B19.20 - Unspecified viral hepatitis C without hepatic coma, R76.89 - Other specified abnormal immunological findings in serum Gastroenterology Referral B19.20 - Unspecified viral hepatitis C without hepatic coma, R76.89 - Other specified abnormal immunological findings in serum
[2025-07-09 14:48] VITALS: BP 119/57; PULSE 57; TEMP 36.4; O2SAT 96; BMI 21.5
--- OUTSIDE RECORDS SUMMARY | 2025-07-09 18:49 | XMS_ITS | Clinical Summary ---
Author Organization [facility] [email or web address] [facility] Address [address] [place] [address] Phone Care Team Providers Care Steaming Cabinet Tender Name Role Phone Jj Burks MD Primary Care Provider [phone] Allergies No known active allergies Medications apixaban (Eliquis) 5 mg tabletIndicatio ns:afib Take 1 tablet (5 mg total) by mouth 2 (two) times a day. 60 each 05/05/2025 Active metoprolol succinate (TOPROL-XL) 25 mg 24 hr tablet Take 3 tablets (75 mg total) by mouth 1 (one) time each day. Do not crush or chew. 90 each 05/06/2025 Active rosuvastatin (CRESTOR) 5 mg tablet Take 1 tablet (5 mg total) by mouth 1 (one) time each day. 90 tablet 05/05/2025 Active nicotine (NICODERM CQ) 7 mg/[address] 1 patch on the skin 1 (one) time each day. 30 each 05/06/2025 Active senna (SENOKOT) 8.6 mg tablet Take 2 tablets (17.2 mg total) by mouth at bedtime. 60 each 11 05/05/2025 Active Active Problems Problem Noted Date Diagnosed Date Coronary artery disease invo lving [place] coronary artery of [place] heart without angina pectoris 05/02/2025 Assessment & [...] 05/02/2025 Syncope and collapse 05/02/2025 Polysubstance abuse 05/02/2025 Femur fracture, right 04/28/2025 Closed nondisplaced intertro chanteric fracture of right femur, initial encounter 04/23/2025 Dizziness 01/20/2024 Claudication 02/04/2023 Atrial fibrillation 01/25/2022 Assessment & Plan (05/21/2025 3:45 PM EDT): Patient has history of paroxysmal atrial fibrillation. ECG today showing sinus rhythm with PACs. He continues on metoprolol for rate control and Eliquis 5 mg twice daily. He is tolerating this well. Orders: ECG 12 lead HFrEF (heart failure with reduced ejection fract ion) 01/25/2022 Assessment & Plan (05/21/2025 3:45 PM [...] Encounters Date Type Department Care Team Description 06/29/2025 Telephone [facility] [address] [place] [id number] Whitney Nava NP 06/25/2025 7:27 AM EST - 06/25/2025 11:59 PM EST Hospital Encounter [facility] [address] [place] [address] Pain, unspecified Discharge Disposition: Home or Self Care 06/25/2025 7:27 AM EST - 06/25/2025 11:59 PM EST Hospital Encounter [facility] [address] [place] [address] Pain, unspecified Discharge Disposition: Home or Self Care 05/21/2025 2:40 PM EDT Office Visit [address] [place] [address] Whitney Nava NP Paroxysmal atrial fibrillation (CMS/HCC V24, CMS/HCC V28) (Primary Dx); Syncope, unspecified syncope type; HFrEF (heart failure with reduced ejection fraction) (CMS/HCC V24, CMS/HCC V28); Coronary artery disease involving [place] coronary artery of [place] heart without angina pectoris; Hyperlipidemia, unspecified hyperlipidemia type; Primary hypertension 05/11/2025 8:08 AM EDT - 05/11/2025 11:59 PM EDT Hospital Encounter [facility] [address] [place] [address] Pain Discharge Disposition: Home or Self Care 05/04/2025 Plan of Care Documentation [facility] [address] [place] [address] 04/28/2025 12:29 PM EDT - 05/06/2025 11:25 AM EDT Hospital Encounter [facility] [address] [place] [address] Bernarda Huynh DO Discharge Disposition: Home-Health Care [facility] [place] 04/26/2025 8:34 AM EDT Anesthesia Event [facility] OR [address] [place] [phone] Temo Huizar MD Dasilva, John E, MD 04/26/2025 8:00 AM EDT - 04/26/2025 10:00 AM EDT Surgery [facility] OR [address] [place] [phone] Gray Murillo MD GAMMA NAIL RIGHT HIP 04/23/2025 2:11 PM EDT - 04/28/2025 12:09 PM EDT Hospital Encounter [facility] [address] [place] [phone] Mariza Law MD Goebel, Mathew, MD Zaidi, MD Sridhar Serna Omar D, MD Kokosadze, Estate, MD Kela, Kashyap Devendrabhai, MD Closed nondisplaced intertrochanteric fracture of right femur, initial encounter [place] [place] [facility] [place] (Primary Dx); Hyponatremia; Syncope, unspecified syncope type; Paroxysmal atrial fibrillation [place] [place] [facility] [place] HFrEF (heart failure with reduced ejection fraction) [place] [place] [facility] [place] Discharge Disposition: Rehab Facility from Last 3 Months Surgical History Surgery Date Site/Laterality Comments HERNIA REPAIR Left PROCEDURE: LAPAROSCOPY, INGUINAL HERNIA REPAIR Medical History Medical History Date Comments Hypertension CHF (congestive heart failure) [place] [place] [facility] [place]28[place] Social History Tobacco Use Types Packs/Day Years Used Date Smoking Tobacco: Every Day Cigarettes 0.3 1 Started: 2024 Smokeless Tobacco: Never Tobacco Cessation:Ready [...] on file Sexual Orientation Not on file Last Filed Vital Signs Vital Sign Reading [...] Meena Martinez Medical Devices Implanted Type Area Mat Machine Operator Device Identifier Shelf Expiration Date Model / Serial / Lot Screw [id number] Nail Rt [id number] 125 Degree - Sna - [id number] Implanted:Qty: 1 on 04/26/2025 by Gray Murillo MD at [facility] Internal and External Fixation Right: Hip [employer] [id number] 01/19/2029 3425-040 0S / NA / [id number] Screw Lag Ti Manisha 3 10.5x95mm Gamma 3 Nail System - Sna - [id number] Implanted:Qty: 1 on 04/26/2025 by Gray Murillo MD at [facility] Internal and External Fixation Right: Hip [employer] [id number] 02/19/2027 [id number] S / NA / [id number] Screw Lcking T2 Fthrd 5x52.5mm Ster - Sna - [id number] Implanted:Qty: 1 on 04/26/2025 by Gray Murillo MD at [facility] Internal and External Fixation Right: Hip [employer] [id number] 07/22/2027 [id number] S / NA / [id number] Procedures Procedure Name Priority Date/Time Associated Diagnosis Comments XR FEMUR 2+ VIEWS RIGHT Routine 06/25/2025 8:40 AM EST Pain, unspecified XR HIP 2-3 VIEWS RIGHT Routine 8:40 AM EST Pain, unspecified ECG 12-LEAD Routine 05/21/2025 3:45 PM EDT [...] EDT from Last 3 Months Results * XR Femur 2+ Views Right (06/25/2025 8:40 AM EST) Only the most recent of4 resultswithin the time period is included. Narrative RIS PACS/VR - 06/25/2025 8:40 AM EST This order has been auto-finalized and does not contain a result. Tanvir Reid MD IMG XR PROCEDURES Final Resul t Performing Organization Address [facility] Co de Phone Number RIS PACS/VR * XR Hip 2-3 Views Right (06/25/2025 8:40 AM EST) Only the most recent of2 resultswithin the time period is included. Narrative RIS PACS/VR - 06/25/2025 8:40 AM EST This order has been auto-finalized and does not contain a result. us Tanvir Reid MD IMG XR PROCEDURES Final Resul t Performing Organization Address [facility] Co de Phone Number RIS PACS/VR * ECG 12 lead (05/21/2025 3:45 PM EDT) Only the most recent of3 resultswithin the time period is included. Ventricular Rate ECG 77 BPM GEMUSE Atrial Rate 77 BPM GEMUSE P-R Interval 198 ms GEMUSE QRS Duration 82 ms GEMUSE Q-T Interval 360 ms GEMUSE QTc 407 ms GEMUSE P Wave [place] 86 degrees GEMUSE R [place] 78 degrees GEMUSE T [place] 81 degrees GEMUSE ECG Interpretation Sinus rhythm with Premature atrial complexes Otherwise normal ECG When compared with ECG of 26-APR-2025 04:35, Sinus rhythm has replaced Atrial fibrillation Vent. rate has decreased BY 45 BPM T wave inversion no longer evident in Anterior leads Confirmed by MD SALAS JOHN ([id number]) on 06/01/2025 5:49:34 PM GEMUSE 05/21/2025 2:56 PM EDT 06/01/2025 5:49 PM EST us Whitney Nava NP ECG ORDERABLES Edited Result - Final GEMUSE * XR Abdomen 1 View (05/02/2025 8:50 AM EDT) Only the most recent of3 resultswithin the time period is included. Anatomical Region Laterality Modality Body Radiographic Brittani ging 05/04/2025 8:01 AM EDT Impressions 05/04/2025 8:03 AM EDT Diffuse colonic distention, mildly improved since 05/01/2025, likely representing resolving adynamic ileus. Code 51942 -------- FINAL REPORT -------- Dictated By: Gunner Goodson Dictated Date: 05/04/2025 08:01 ET Assigned Physician: Gunner Goodson Reviewed and Electronically Signed By: Gunner Goodson Signed Date: 05/04/2025 08:03 ET Workstation ID: [id number] Transcribed By: Self Edit Transcribed Date: 05/04/2025 [...] since 05/01/2025, likelyrepresenting resolving adynamic ileus. Code 89107 -------- FINAL REPORT -------- Dictated By: Gunner Goodson Dictated Date: 05/04/2025 08:01 ET Assigned Physician: Gunner Goodson Reviewed and Electronically Signed By: Gunner Goodson Signed Date: 05/04/2025 08:03 ET Workstation ID: [id number] Transcribed By: Self Edit Transcribed Date: 05/04/2025 08:01 ET us Bernarda Huynh DO IMG XR PROCEDURES Final R esult * (ABNORMAL) CBC auto differential (05/02/2025 5:01 AM EDT) Only the most recent of8 resultswithin the time period is included. WBC 8.8 4.8 - 10.8 K/mcL LAB HEMETOLOGY METHOD 05/02/2025 6:33 AM EDT [facility] RBC 2.90(L) 4.50 - 5.50 M/mcL LAB HEMETOLOGY METHOD 05/02/2025 6:33 AM EDT [facility] Hemoglobin 9.3(L) 13.5 - 17.5 g/dL LAB HEMETOLOGY METHOD 05/02/2025 6:33 AM EDT [facility] Hematocrit 28.3(L) 42.0 - 54.0 % LAB HEMETOLOGY METHOD 05/02/2025 6:33 AM [facility] MCV 99.0(H) 79.0 - 98.0 FL LAB HEMETOLOGY METHOD 05/02/2025 6:33 [facility] MCH 32.5(H) 27.0 - 32.0 pcg LAB HEMETOLOGY METHOD 05/02/2025 6:33 AM [facility] MCHC 32.9 32.0 - 37.0 g/dL LAB HEMETOLOGY METHOD 05/02/2025 6:33 AM [facility] RDW 12.7 11.0 - 15.0 % LAB HEMETOLOGY METHOD 05/02/2025 6:33 AM [facility] Platelets 432(H) 130 - 400 K/mcL LAB HEMETOLOGY METHOD 05/02/2025 6:33 AM [facility] MPV 9.3 7.0 - 11.0 FL LAB HEMETOLOGY METHOD 05/02/2025 6:33 AM [facility] NRBC 0.0 <1.0 % LAB HEMETOLOGY METHOD 05/02/2025 6:33 AM [facility] NRBC Absolute 0.00 <0.10 K/mcL LAB HEMETOLOGY METHOD 05/02/2025 6:33 AM [facility] Neutrophils Relative 66.7 % LAB HEMETOLOGY METHOD 05/02/2025 6:33 AM [facility] Comment:This is an appended report. These results have been appended to a previously preliminary verified report. Lymphocytes Relative 8.4 % LAB HEMETOLOGY METHOD 05/02/2025 6:33 AM [facility] Comment:This is an appended report. These results have been appended to a previously preliminary verified report. Monocytes Relative 19.2 % LAB HEMETOLOGY METHOD 05/02/2025 6:33 AM [facility] Comment:This is an appended report. These results have been appended to a previously preliminary verified report. Eosinophils Relative 4.0 % LAB HEMETOLOGY METHOD 05/02/2025 6:33 AM [facility] Comment:This is an appended report. These results have been appended to a previously preliminary verified report. Basophils Relative 0.6 % LAB HEMETOLOGY METHOD 05/02/2025 6:33 AM [facility] Comment:This is an appended report. These results have been appended to a previously preliminary verified report. Immature Granulocytes Relative 1.1 % [facility] 05/02/2025 6:33 AM [facility] Comment:This is an appended report. These results have been appended to a previously preliminary verified report. Neutrophils Absolute 5.90 1.50 - 7.00 K/mcL LAB HEMETOLOGY METHOD 05/02/2025 6:33 AM [facility] Comment:This is an appended report. These results have been appended to a previously preliminary verified report. Lymphocytes Absolute 0.74(L) 1.00 - 5.00 K/mcL [facility] 05/02/2025 6:33 AM [facility] Comment:This is an appended report. These results have been appended to a previously preliminary verified report. Monocytes Absolute 1.70(H) 0.20 - 1.00 K/mcL LAB HEMETOLOGY METHOD 05/02/2025 6:33 AM [facility] Comment:This is an appended report. These results have been appended to a previously preliminary verified report. Eosinophils Absolute 0.35 0.00 - 0.50 K/mcL LAB HEMETOLOGY METHOD 05/02/2025 6:33 AM [facility] Comment:This is an appended report. These results have been appended to a previously preliminary verified report. Basophils Absolute 0.05 0.00 - 0.20 K/mcL LAB HEMETOLOGY METHOD 05/02/2025 6:33 AM EDT [facility] Comment:This is an appended report. These results have been appended to a previously preliminary verified report. Immature Granulocytes Absolute 0.10(H) 0.00 - 0.03 K/mcL LAB HEMETOLOGY METHOD 05/02/2025 6:33 AM EDT [facility] Comment:This is an appended report. These results have been appended to a previously preliminary verified report. Blood Venous blood specimen / Unknown Venipuncture / Unknown 05/02/2025 5:01 AM EDT 05/02/2025 5:43 AM EDT us Bernarda Huynh DO LAB BLOOD ORDERABLES Yoon amin Result [facility] [address] [place] [address], [place] [phone] * (ABNORMAL) Comprehensive metabolic panel (05/02/2025 5:01 AM EDT) Only the most recent of4 resultswithin the time period is included. Sodium 130(L) 133 - 145 mmol/L LAB CHEMISTRY METHOD 05/02/2025 6:42 AM [facility] Potassium 4.3 3.5 - 5.5 mmol/L LAB CHEMISTRY METHOD 05/02/2025 6:42 AM [facility] Chloride 97 96 - 110 mmol/L LAB CHEMISTRY METHOD 05/02/2025 6:42 AM [facility] CO2 25 21 - 32 mmol/L LAB CHEMISTRY METHOD 05/02/2025 6:42 AM [facility] Anion Gap 8 3 - 11 LAB CHEMISTRY METHOD 05/02/2025 6:42 AM [facility] Glucose 86 70 - 100 mg/dL LAB CHEMISTRY METHOD 05/02/2025 6:42 AM [facility] BUN 11 5 - 25 mg/dL LAB CHEMISTRY METHOD 05/02/2025 6:42 AM [facility] Creatinine 0.66(L) 0.70 - 1.30 mg/dL LAB CHEMISTRY METHOD 05/02/2025 6:42 AM [facility] eGFR 101 >=60 mL/min/1. 73m2 LAB CHEMISTRY METHOD 05/02/2025 6:42 AM [facility] Comment:Calculation based on the Chronic Kidney Disease Epidemiology Collaboration (CKD-EPI) equation refit without adjustment for race. BUN/Creatinine Ratio 16.7 LAB CHEMISTRY METHOD 05/02/2025 6:42 AM [facility] Calcium 8.3(L) 8.5 - 10.5 mg/dL LAB CHEMISTRY METHOD 05/02/2025 6:42 AM [facility] AST (SGOT) 20 10 - 42 unit/L LAB CHEMISTRY METHOD 05/02/2025 6:42 AM [facility] ALT (SGPT) 18 10 - 60 unit/L LAB CHEMISTRY METHOD 05/02/2025 6:42 AM [facility] Alkaline Phosphatase 74 42 - 121 unit/L LAB CHEMISTRY METHOD 05/02/2025 6:42 AM [facility] Total Protein 6.0 6.0 - 8.0 g/dL LAB CHEMISTRY METHOD 05/02/2025 6:42 AM [facility] Albumin 2.8(L) 3.2 - 5.0 g/dL LAB CHEMISTRY METHOD 05/02/2025 6:42 AM [facility] Total Bilirubin 0.5 0.0 - 1.4 mg/dL LAB CHEMISTRY METHOD 05/02/2025 6:42 AM [facility] Blood Venous blood specimen / Unknown Venipuncture / Unknown 05/02/2025 5:01 AM EDT 05/02/2025 5:43 AM EDT Bernarda Huynh DO LAB BLOOD ORDERABLES Yoon l Result Performing Organization Address [facility]/ZIP Co de Phone Number [facility] [address] [place] [address], [place] [phone] * Lavender tube (04/30/2025 5:21 AM EDT) [facility] Extra Tube Hold for add-ons. 04/30/2025 7:01 AM EDT [facility] Comment:Auto resulted. Blood Venous blood specimen / Unknown Venipuncture / Unknown 04/30/2025 5:21 AM EDT 04/30/2025 5:43 AM EDT [facility] BLOOD ORDERABLES Yoon l Result Performing Organization Address [facility] Co de Phone Number [facility] [address] [place] [address], [place] [phone] * (ABNORMAL) Basic metabolic panel (04/30/2025 5:21 AM EDT) Only the most recent of8 resultswithin the time period is included. [facility] Sodium 128(L) 133 - 145 mmol/L LAB CHEMISTRY METHOD 04/30/2025 6:08 AM [facility] Potassium 3.8 3.5 - 5.5 mmol/L LAB CHEMISTRY METHOD 04/30/2025 6:08 AM [facility] Chloride 95(L) 96 - 110 mmol/L LAB CHEMISTRY METHOD 04/30/2025 6:08 AM [facility] CO2 26 21 - 32 mmol/L LAB CHEMISTRY METHOD 04/30/2025 6:08 AM [facility] Anion Gap 7 3 - 11 LAB CHEMISTRY METHOD 04/30/2025 6:08 AM [facility] Glucose 98 70 - 100 mg/dL LAB CHEMISTRY METHOD 04/30/2025 6:08 AM [facility] BUN 15 5 - 25 mg/dL LAB CHEMISTRY METHOD 04/30/2025 6:08 AM EDT [facility] Creatinine 0.70 0.70 - 1.30 mg/dL LAB CHEMISTRY METHOD 04/30/2025 6:08 AM [facility] eGFR 99 >=60 mL/min/1. 73m2 LAB CHEMISTRY METHOD 04/30/2025 6:08 AM EDT [facility] Comment:Calculation based on the Chronic Kidney Disease Epidemiology Collaboration (CKD-EPI) equation refit without adjustment for race. BUN/Creatinine Ratio 21.4 LAB CHEMISTRY METHOD 04/30/2025 6:08 AM T [facility] Calcium 8.2(L) 8.5 - 10.5 mg/dL LAB CHEMISTRY METHOD 04/30/2025 6:08 AM [facility] Blood Venous blood specimen / Unknown Venipuncture / Unknown 04/30/2025 5:21 AM EDT 04/30/2025 5:42 AM EDT us Bernarda Huynh DO LAB BLOOD ORDERABLES Yoon amin Result [facility] [address] [place] [address], [place] [phone] * (ABNORMAL) Complete blood count (04/28/2025 6:24 AM EDT) WBC 10.8 4.8 - 10.8 K/mcL LAB HEMETOLOGY METHOD 04/28/2025 6:49 AM EDT [facility] RBC 3.00(L) 4.50 - 5.50 M/mcL LAB HEMETOLOGY METHOD 04/28/2025 6:49 AM T [facility] Hemoglobin 9.7(L) 13.5 - 17.5 g/dL LAB HEMETOLOGY METHOD 04/28/2025 6:49 AM EDT [facility] Hematocrit 29.2(L) 42.0 - 54.0 % LAB HEMETOLOGY METHOD 04/28/2025 6:49 AM EDT [facility] MCV 97.3 79.0 - 98.0 FL LAB HEMETOLOGY METHOD 04/28/2025 6:49 AM EDT [facility] MCH 32.3(H) 27.0 - 32.0 pcg LAB HEMETOLOGY METHOD 04/28/2025 6:49 AM EDT [facility] MCHC 33.2 32.0 - 37.0 g/dL LAB HEMETOLOGY METHOD 04/28/2025 6:49 AM EDT [facility] RDW 13.1 11.0 - 15.0 % LAB HEMETOLOGY METHOD 04/28/2025 6:49 AM EDT [facility] Platelets 295 130 - 400 K/mcL LAB HEMETOLOGY METHOD 04/28/2025 6:49 AM EDT [facility] MPV 9.5 7.0 - 11.0 FL LAB HEMETOLOGY METHOD 04/28/2025 6:49 AM EDT [facility] NRBC 0.0 <1.0 % LAB HEMETOLOGY METHOD 04/28/2025 6:49 AM EDT [facility] NRBC Absolute 0.00 <0.10 K/mcL LAB HEMETOLOGY METHOD 04/28/2025 6:49 AM EDT [facility] Blood Venous blood specimen / Unknown Venipuncture / Unknown 04/28/2025 6:24 AM EDT 04/28/2025 6:41 AM EDT us Valentin Teixeira MD LAB BLOOD ORDERABLE S Final Result [facility] [address] [place] [address], * Phosphorus (04/28/2025 6:24 AM EDT) [facility] Phosphorus 2.5 2.5 - 4.5 mg/dL LAB CHEMISTRY METHOD 04/28/2025 7:30 AM EDT [facility] Blood Venous blood specimen / Unknown Venipuncture / Unknown 04/28/2025 6:24 AM EDT 04/28/2025 6:41 AM EDT us Valentin Teixeira MD LAB BLOOD ORDERABLE S Final Result Performing Organization Address City/[facility]/ZIP Co de Phone Number [facility] [address] [place] [address], [place] [phone] * Magnesium (04/28/2025 6:24 AM EDT) Only the most recent of5 resultswithin the time period is included. [facility] Magnesium 2.1 1.9 - 2.6 mg/dL LAB CHEMISTRY METHOD 04/28/2025 7:23 AM EDT [facility] Blood Venous blood specimen / Unknown Venipuncture / Unknown 04/28/2025 6:24 AM EDT 04/28/2025 6:41 AM EDT us Valentin Teixeira MD LAB BLOOD ORDERABLE S Final Result Performing Organization Address City/[facility]/ZIP Co de Phone Number [facility] [address] [place] [address], [place] [phone] * (ABNORMAL) Manual differential (04/27/2025 6:13 AM EDT) [facility] Neutrophils % 87.0 % LAB HEMETOLOGY METHOD 04/27/2025 7:13 AM EDT [facility] Lymphocytes % 4.0 % LAB HEMETOLOGY METHOD 04/27/2025 7:13 AM EDT [facility] Monocytes % 8.0 % LAB HEMETOLOGY METHOD 04/27/2025 7:13 AM EDT [facility] Eosinophils % 2.0 % LAB HEMETOLOGY METHOD 04/27/2025 7:13 AM EDT [facility] Basophils % 0.0 % LAB HEMETOLOGY METHOD 04/27/2025 7:13 AM EDT [facility] Neutrophils Absolute Manual 10.96(H) 1.50 - 7.00 K/mcL LAB HEMETOLOGY METHOD 04/27/2025 7:13 AM EDT [facility] Lymphocytes Absolute 0.50(L) 1.00 - 5.00 K/mcL LAB HEMETOLOGY METHOD 04/27/2025 7:13 AM EDT [facility] Monocytes Absolute Manual 1.01(H) 0.20 - 1.00 K/mcL LAB HEMETOLOGY METHOD 04/27/2025 7:13 AM EDT [facility] Eosinophils Absolute Manual 0.25 0.00 - 0.50 K/mcL LAB HEMETOLOGY METHOD 04/27/2025 7:13 AM EDT [facility] Basophils Absolute Manual 0.00 0.00 - 0.20 K/mcL LAB HEMETOLOGY METHOD 04/27/2025 7:13 AM EDT [facility] Blood Venous blood specimen / Unknown Venipuncture / Unknown 04/27/2025 6:13 AM EDT 04/27/2025 6:24 AM EDT us Estraphael Martin MD LAB BLOOD ORDERABLES Final R esult [facility] [address] [place] [address], * TH AN LMA(NO CHARGE) (04/26/2025 9:02 AM EDT) Narrative Lanette Nazario CRNA - 04/26/2025 9:02 AM EDT Lanette Nazario CRNA 04/26/2025 9:03 AM General Information and Staff Patient location during procedure: OR Resident/HOUSEKEEPER NANNY: Lanette Nazario CRNA Performed: resident/AMELIA/CAA Performed by: [...] Mask difficulty assessment: 0 - not attempted Temo Huizar MD ANESTHESIA ORDERABLES Final Re sult * (ABNORMAL) RBC morphology review (04/26/2025 6:32 AM EDT) Only the most recent of3 resultswithin the time period is included. Rbc Morphology Consistent with indices Consistent with indices, Normal for LAB HEMETOLOGY METHOD 04/26/2025 7:40 AM EDT [facility] Platelet Morphology - WAM See Note(A) Normal LAB HEMETOLOGY METHOD 04/26/2025 7:40 AM EDT [facility] Comment:PLT: Normal Blood Venous blood specimen / Unknown Venipuncture / Unknown 04/26/2025 6:32 AM EDT 04/26/2025 6:46 AM EDT Franco Martin MD LAB BLOOD ORDERABLES Final R esult [facility] [address] [place] [address], * Triiodothyronine free (04/26/2025 6:32 AM EDT) T3, Free 277 230 - 420 pcg/dL LAB CHEMISTRY METHOD 04/26/2025 11:50 AM EDT [facility] Blood Venous blood specimen / Unknown Venipuncture / Unknown 04/26/2025 6:32 AM EDT 04/26/2025 6:45 AM EDT us Franco Martin MD LAB BLOOD ORDERABLES Final R esult Performing Organization Address City/[facility]/ZIP Co de Phone Number [facility] [address] [place] [address], [place] [phone] * Thyroxine free (04/26/2025 6:32 AM EDT) Free T4 1.36 0.70 - 1.80 ng/dL LAB CHEMISTRY METHOD 04/26/2025 11:45 AM EDT [facility] Blood Venous blood specimen / Unknown Venipuncture / Unknown 04/26/2025 6:32 AM EDT 04/26/2025 6:45 AM EDT us Franco Martin MD LAB BLOOD ORDERABLES Final R esult Performing Organization Address [facility]/ZIP Co de Phone Number [facility] [address] [place] [address], [place] [phone] * (ABNORMAL) Thyroid stimulating hormone (04/25/2025 6:12 AM EDT) TSH 7.83(H) 0.40 - 4.00 mcIU/mL LAB CHEMISTRY METHOD 04/25/2025 1:46 PM EDT [facility] Blood Venous blood specimen / Unknown Venipuncture / Unknown 04/25/2025 6:12 AM EDT 04/25/2025 6:42 AM EDT us Franco Martin MD LAB BLOOD ORDERABLES Final R esult Performing Organization Address City/[facility]/ZIP Co de Phone Number [facility] [address] [place] [address], [place] [phone] * (ABNORMAL) POCT Glucose, blood (04/24/2025 11:25 AM EDT) Glucose POCT 112(H) 70 - 100 mg/dL 04/24/2025 11:25 AM EDT [facility] Blood Capillary blood specimen / Unknown 04/24/2025 11:25 AM EDT 04/24/2025 11:27 AM EDT us Estate Mario CINTRON LAB POINT OF CARE TE ST DOCKED DEVICE UNSOLICITED RESULTS Final Result [facility] [address] [place] [address], [place] [phone] * (ABNORMAL) TRANSTHORACIC ECHOCARDIOGRAM (TTE) COMPLETE W/ CONTRAST (04/24/2025 9:40 AM EDT) Pathologist [facility] Aortic Sinus Valsalva 3.7 cm CV PACS [...] Area 3.5 cm2 CV PACS MV Deceleration Peach 2.9 m/s2 CV PACS E Wave Deceleration [...] 8a panel, urine (04/24/2025 12:34 AM EDT) Amphetamine Screen, Ur Negative Negative LAB CHEMISTRY METHOD 1:18 AM [facility] Comment:Certain OTC medicati ons containing ephedrine, phenylephrine, pseudoephedrine and phenylpropanolamine can cause false positive results. Barbiturate Screen, Ur Negative Negative LAB CHEMISTRY METHOD 1:18 AM [facility] Benzodiazepine Screen, Ur Negative Negative LAB CHEMISTRY METHOD 1:18 AM [facility] Cocaine Screen, Ur Negative Negative LAB CHEMISTRY METHOD 1:18 AM [facility] Opiate Screen, Ur Positive(A ) Negative LAB CHEMISTRY METHOD 1:18 AM [facility] Cannabinoid (THC) Screen, Ur Positive(A ) Negative LAB CHEMISTRY METHOD 1:18 AM [facility] Comment:Specimens from patie nts taking pantoprazole sodium (Protonix) have been shown to produce false positive results. Oxycodone Screen, Ur Negative Negative LAB CHEMISTRY METHOD 1:18 AM [facility] Fentanyl, Ur Negative Negative LAB CHEMISTRY METHOD 1:18 AM [facility] Urine Urine specimen obtained by clean catch procedure / Unknown Non-blood Collection / Unknown 04/24/2025 12:34 AM EDT 04/24/2025 12:48 AM EDT Narrative [facility] - 04/24/2025 1:18 AM [...] ORDERABLES Final Re sult Performing Organization Address [facility]/ZIP Co de Phone Number [facility] [address] [place] [address], [place] [phone] * Sodium, urine, random (04/24/2025 12:34 AM EDT) Sodium, Ur 22 mmol/L LAB CHEMISTRY METHOD 04/24/2025 1:23 AM EDT [facility] Urine Urine specimen from urethra / Unknown Non-blood Collection / Unknown 04/24/2025 12:34 AM EDT 04/24/2025 12:48 AM EDT Patti WASHBURN LAB URINE ORDERABLES Final Re sult Performing Organization Address [facility] Co de Phone Number [facility] [address] [place] [address], [place] [phone] * Osmolality, urine (04/24/2025 12:34 AM EDT) Osmolality, Urine 500 300 - 1,300 mOsm/kg LAB CHEMISTRY METHOD 04/24/2025 2:58 AM EDT [facility] Urine Urine specimen obtained by clean catch procedure / Unknown Non-blood Collection / Unknown 04/24/2025 12:34 AM EDT 04/24/2025 12:48 AM EDT [facility] WASH[facility] LAB URINE ORDERABLES Final Re sult Performing Organization Address [facility]/ZIP Co de Phone Number [facility] [address] [place] [address], [place] [phone] * ECG-Annotated (04/24/2025) us Provider Onbase MD ECG ORDERABLES Final Result * Type and screen (04/23/2025 10:55 PM EDT) ABO Group B 04/23/2025 11:57 PM EDT [facility] Rh Type Positive 04/23/2025 11:57 PM EDT [facility] Antibody Screen Negative 04/23/2025 11:57 PM EDT [facility] Blood Venous blood specimen / Unknown Venipuncture / Unknown 04/23/2025 10:55 PM EDT 04/23/2025 10:57 PM EDT Derick Pace MD LAB BLOOD BANK TEST ORDER YOON Final Result [facility] [address] [place] [address], * CT Pelvis wo Contrast (04/23/2025 7:50 [...] This document has been electronically signed by: Dsetiney Gonzalez MD on 04/23/2025 20:42:41 Paulie Riddle MD IMG CT PROCEDURES Final Result * (ABNORMAL) Urinalysis with reflex microscopic and culture (04/23/2025 7:36 PM EDT) Specific [place] Urine 1.014 1.003 - 1.030 LAB URINALYSIS - AUTOMATED METHOD 04/23/2025 8:11 PM [facility] pH, Urine 6.0 5.0 - 8.0 pH LAB URINALYSIS - AUTOMATED METHOD 04/23/2025 8:11 PM [facility] Leukocytes, Urine Negative Negative LAB URINALYSIS - AUTOMATED METHOD 04/23/2025 8:11 PM [facility] Nitrite, Urine Negative Negative LAB URINALYSIS - AUTOMATED METHOD 04/23/2025 8:11 PM [facility] Protein, Urine Negative <=Trace mg/dL LAB URINALYSIS - AUTOMATED METHOD 04/23/2025 8:11 PM [facility] Glucose, Urine Negative Negative mg/dL LAB URINALYSIS - AUTOMATED METHOD 04/23/2025 8:11 PM [facility] Ketones, Urine Negative Negative mg/dL LAB URINALYSIS - AUTOMATED METHOD 04/23/2025 8:11 PM [facility] Urobilinogen, Urine 0.2 0.2 - 1.0 mg/dL LAB URINALYSIS - AUTOMATED METHOD 04/23/2025 8:11 PM [facility] Bilirubin, Urine Negative Negative LAB URINALYSIS - AUTOMATED METHOD 04/23/2025 8:11 PM [facility] Blood, Urine Trace(A) Negative LAB URINALYSIS - AUTOMATED METHOD 04/23/2025 8:11 PM [facility] RBC, Urine 0.5 0 - 4 /HPF LAB URINALYSIS - AUTOMATED METHOD 04/23/2025 8:11 PM EDT [facility] WBC, Urine 0.4 0 - 4 /HPF LAB URINALYSIS - AUTOMATED METHOD 04/23/2025 8:11 PM EDT [facility] Squamous Epithelial, Urine 11 0 - 60 /LPF LAB URINALYSIS - AUTOMATED METHOD 04/23/2025 8:11 PM EDT [facility] Bacteria, Urine Negative Negative /HPF LAB URINALYSIS - AUTOMATED METHOD 04/23/2025 8:11 PM EDT [facility] Hyaline Casts, Urine 0.0 0 - 3 /LPF LAB URINALYSIS - AUTOMATED METHOD 04/23/2025 8:11 PM EDT [facility] Urine Urine specimen obtained by clean catch procedure / Unknown Non-blood Collection / Unknown 04/23/2025 7:36 PM EDT 04/23/2025 7:46 PM EDT us Mariza Law MD LAB URINE ORDERABLES Final Resul t Performing Organization Address City/[facility]/ZIP Co de Phone Number [facility] [address] [place] [address], [place] [phone] * Dailey urine culture tube (04/23/2025 7:36 PM EDT) Extra Tube Hold for add-ons. 04/23/2025 9:01 PM EDT [facility] Comment:Auto resulted. Urine Urine specimen obtained by clean catch procedure / Unknown Non-blood Collection / Unknown 04/23/2025 7:36 PM EDT 04/23/2025 7:46 PM EDT us Mariza Law MD LAB URINE ORDERABLES Final Resul t [facility] [address] [place] [address], [place] [phone] * XR Pelvis 1-2 Views (04/23/2025 7:06 PM EDT) Anatomical Region Laterality Modality Body, Pelvis Radiographic Brittani ging 04/24/2025 8:25 AM EDT Impressions 04/24/2025 8:26 AM EDT Displaced intertrochanteric right femoral fracture. -------- FINAL REPORT -------- Dictated By: Iván Guerra Dictated Date: 04/24/2025 08:25 ET Assigned Physician: Iván Guerra Reviewed and Electronically Signed By: Iván Guerra Signed Date: 04/24/2025 08:26 ET Workstation ID: [id number] Transcribed By: Self Edit Transcribed Date: 04/24/2025 [...] Signed Date: 04/24/2025 08:26 ET Workstation ID: [id number] Transcribed By: Self Edit Transcribed Date: 04/24/2025 08:25 ET Mariza BULL XR PROCEDURES Final Result * XR Chest [...] Signed Date: 04/24/2025 08:23 ET Workstation ID: [id number] Transcribed By: Self Edit Transcribed Date: 04/24/2025 [...] Signed Date: 04/24/2025 08:23 ET Workstation ID: [id number] Transcribed By: Self Edit Transcribed Date: 04/24/2025 08:23 ET Mariza Oakridge MD IMG XR PROCEDURES Final Result * [...] by: Destiney Gonzalez MD on 04/23/2025 20:32:34 Mariza Law MD IMG XR PROCEDURES Final [...] Signed Date: 04/23/2025 16:40 ET Workstation ID: [id number] Transcribed By: Self Edit Transcribed Date: 04/23/2025 [...] Signed Date: 04/23/2025 16:40 ET Workstation ID: [id number] Transcribed By: Self Edit Transcribed Date: 04/23/2025 16:38 ET Mariza Law MD [facility] [place] PROCEDURES Final Result * CT Head [...] Signed Date: 04/23/2025 16:38 ET Workstation ID: [id number] Transcribed By: Self Edit Transcribed Date: 04/23/2025 [...] Signed Date: 04/23/2025 16:38 ET Workstation ID: [id number] Transcribed By: Self Edit Transcribed Date: 04/23/2025 16:36 ET Mariza Law MD IMG CT PROCEDURES Final Result * Troponin I high sensitivity (04/23/2025 4:00 PM EDT) Only the most recent of2 resultswithin the time period is included. [facility] High Sensitivity Troponin I 6 <=79 ng/L LAB CHEMISTRY METHOD 04/23/2025 4:35 PM EDT [facility] Blood Venous blood specimen / Unknown Venipuncture / Unknown 04/23/2025 4:00 PM EDT 04/23/2025 4:10 PM EDT Narrative [facility] - 04/23/2025 4:35 PM EDT High levels of biotin in samples may falsely decrease hsTroponin values. Use caution when interpreting hsTroponin results in patients taking biotin who exhibit renal impairment (eGFR <60) or in patients taking more than 20 mg/day of biotin. Mariza Law MD LAB BLOOD ORDERABLES Final Resul t Performing Organization Address [facility]/ZIP Co de Phone Number [facility] [address] [place] [address], [place] [phone] * (ABNORMAL) Osmolality (04/23/2025 4:00 PM EDT) [facility] Osmolality Ami 277(L) 280 - 300 mOsm/kg LAB CHEMISTRY METHOD 04/23/2025 10:44 PM EDT [facility] Blood Venous blood specimen / Unknown Venipuncture / Unknown 04/23/2025 4:00 PM EDT 04/23/2025 4:10 PM EDT Patti WASHBURN LAB BLOOD ORDERABLES Final Re sult Performing Organization Address [facility]/ZIP Co de Phone Number [facility] [address] [place] [address], [place] [phone] * Ethanol (04/23/2025 4:00 PM EDT) [facility] Ethanol Level <3 0 - 10 mg/dL LAB CHEMISTRY METHOD 04/24/2025 12:55 AM EDT [facility] Blood Venous blood specimen / Unknown Venipuncture / Unknown 04/23/2025 4:00 PM EDT 04/23/2025 4:10 PM EDT Patti WASHBURN LAB BLOOD ORDERABLES Final Re sult [facility] [address] [place] [address], [place] [phone] * APTT (04/23/2025 2:45 PM EDT) aPTT 35.9 24.1 - 39.3 sec LAB COAGULATION METHOD 04/23/2025 3:19 PM EDT [facility] Blood Venous blood specimen / Unknown Venipuncture / Unknown 04/23/2025 2:45 PM EDT 04/23/2025 2:59 PM EDT us Mariza Law MD LAB BLOOD ORDERABLES Final Resul t Performing Organization Address [facility]/ZIP Co de Phone Number [facility] [address] [place] [address], [place] [phone] * Protime-INR (04/23/2025 2:45 PM EDT) Protime 12.8 10.6 - 13.9 sec LAB COAGULATION METHOD 04/23/2025 3:19 PM EDT [facility] INR 1.0 LAB COAGULATION METHOD 04/23/2025 3:19 PM EDT [facility] Blood Venous blood specimen / Unknown Venipuncture / Unknown 04/23/2025 2:45 PM EDT 04/23/2025 2:59 PM EDT us Mariza Law MD LAB BLOOD ORDERABLES Final Resul t Performing Organization Address City/[facility] Co de Phone Number [facility] [address] [place] [address], [place] [phone] * Creatine kinase (04/23/2025 2:45 PM EDT) Total CK 184 22 - 269 unit/L LAB CHEMISTRY METHOD 04/23/2025 3:31 PM EDT [facility] Blood Venous blood specimen / Unknown Venipuncture / Unknown 04/23/2025 2:45 PM EDT 04/23/2025 2:59 PM EDT Mariza Law MD LAB BLOOD ORDERABLES Final Resul t Performing Organization Address [facility] de Phone Number [facility] [address] [place] [address], [place] [phone] * SPECIMEN STATUS REPORT (04/14/2025 11:52 AM EDT) Pathologist [facility] Specimen Status Report Comment [facility] 1 Comment: Ambig Abbrev BMP8 Default Ambig Abbrev BMP8 Default A hand-written panel/profile was received from your office. In accordance with the [facility] Ambiguous Test Code Policy dated January 2003, we have completed your order by using the closest currently or formerly recognized AMA panel. We have assigned Basic Metabolic Panel (8), Test Code #553275 to this request. If this is not the testing you wished to receive on this specimen, please contact the [facility] Client Inquiry/Technical Services Department to clarify the test order. We appreciate your business. 04/14/2025 11:5 2 AM EDT 04/14/2025 Narrative [facility] 1 - 04/15/2025 4:06 AM EDT Performed at: [address] [id number] [employer]: Hoa Green MD, Phone: [phone] Krista Ham MD LAB BLOOD ORDERABLES Final Res ult [facility] 1 * (ABNORMAL) Lipid panel with direct LDL (04/14/2025 11:52 AM EDT) Cholesterol Total 194 100 - 199 mg/dL [...] - 04/15/2025 8:08 AM EDT Performed at: 01 - [facility] [id number] [employer]: Hoa Green MD, Phone: [phone] us Krista Ham MD LAB BLOOD ORDERABLES Final Res ult [facility] 1 from Last 3 Months Additional Health Concerns Active Problems Noted Date Diagnosed Date Autogenerated Problem 04/24/2025 Insurance MEDICARE [place]ICA[place] - [place] Advance Directives Documents on File Type Date Recorded Patient [employer] Developer Expl anation Advance Directives and Living Will [...] currently active code status orders. Care Teams Steaming Cabinet Tender Relationship Specialty Start Date End Date Jj Burks MD [address] [place] [id number] PCP - General Family Medicine 05/06/25
--- OUTSIDE RECORDS SUMMARY | 2025-07-09 18:49 | XMS_ITS | Patient Health Record ---
Author Organization [facility] Address [address] [place] [phone] Care Team Providers Care Gate Person Name Role Phone Romain Hurtado Jr Unavailable Reason For Referral No Information Plan Of Treatment No Information
== END 2025-07-09 15:40 | disposition home or self-care (01) ==
LOC: HO.HMCFMS 14:40
PROVIDERS: PCP Student in an Organized Health Care Education/Training Program; Visit Provider Student in an Organized Health Care Education/Training Program
DX: Z23 Encounter for immunization (principal)

== ENCOUNTER → 2025-07-09 14:40 | Outpatient (BNVA) | payer MEDICARE, MEDICAID, SELFPAY | PROVIDERS: PCP Student in an Organized Health Care Education/Training Program; Visit Provider Student in an Organized Health Care Education/Training Program | DX: Z71.2 Person consulting for explanation of examination or test findings (principal); B19.20 Unspecified viral hepatitis C without hepatic coma; R76.89 Other specified abnormal immunological findings in serum; Z13.31 Encounter for screening for depression; Z13.39 Encounter for screening examination for other mental health and behavioral disorders | CPT/HCPCS: 90471; 96127; 99212 ==